=== PATIENT | male | born 1945 | race Caucasian/White ===

== ENCOUNTER 2019-02-18 21:47 | Observation (INO) ==
--- OUTSIDE RECORDS SUMMARY | 2019-02-18 21:50 | External Medical Summary | Continuity of Care Document ---
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 Refills: 0 Lisinopril 10 MG Oral Tablet; TAKE 1 TABLET DAILY. 15 Tablet Bottle Refills: 0 Atorvastatin Calcium 20 MG Oral Tablet; TAKE 1 TABLET DAILY. 90 Tablet Bottle Refills: 0 Meclizine HCl - 25 MG Oral Tablet; TAKE 1 TABLET 3 TIMES DAILY NEEDED FOR DIZZINESS. Refills: 0 Procedures Procedures not documented Immunizations Immunizations not documented Family History Father Family history of CABG (V17.49) (Z82.49) Status: Active Mother Family history of myocardial infarction (V17.3) (Z82.49) Sta tus: Active Grandfather Family history of myocardial infarction (V17.3) (Z82.49) Sta tus: Active Brother Family history of myocardial infarction (V17.3) (Z82.49) Sta tus: Active Social History - Smoking Status Never smoker Interventions InstructionsDo not use tobacco procducts and avoid secondhand smoke.; Done: 17 Jan 2018High-BMI is above normal parameters and patient education given regarding risks of abnormal BMI and associated educational information links. Patient offered dietitian referral.; Done: 17 Jan 2018Follow-ups/Referrals Follow-up visit in 6 weeks; Done: 17 Jan 2018Discussion/SummaryThis is a 72-year-old male with fairly persistent gait dysfunction for least the past 3 years. He does have fairly extensive chronic cerebral vascular disease on brain MRI including an area of chronic ischemic gliosis within the juju. He may have gait apraxia related to age advanced cerebral vascular disease. His imaging is not suggestive of normal pressure hydrocephalus. He does not have signs or sym ptoms suggestive of Parkinson's disease. Further, the patient also complains of shoulder girdle and hip girdle pain, although not clearly myalgia. Nonetheless, I wonder if he could have an acquired myositis. I would also consider the possibility of a neuromuscular junction transmission disorder such as myasthenia gravis given his vague visual complaints. I have recommended some additional testing including an EMG of the lower limbs with repetitive stimulation as well as some screening labs. I do notreally have a specific treatment to offer this patient. However, I will make further recommendationspending completion of the above testing.Thank you for the referral. Plan of Treatment Planned Observations Planned Goals not documented Results No Known Results Results not documented Encounters Appointment; Andres Van M.D. 17-Jan-2018 14:00 Encounter Diagnosis: Problem not documented
[2019-02-18] MEDS ORDERED: LORazepam 1 MG/2 ML VIAL IV STA (22:02)
[2019-02-18 22:12] LABS: Basophils # (auto) 0.04 K/uL (0-0.2); Basophils % (auto) 0.5 %; Eosinophils # (auto) 0.19 K/uL (0-0.5); Eosinophils % (auto) 2.2 %; Hematocrit (blood only) 41.1 % (42-52); Hemoglobin 14.2 g/dL (14.0-18.0); Lymphocytes # (auto) 2.73 K/uL (1.2-3.4); Lymphocytes % (auto) 31.8 %; Mean Corpuscular Hgb Conc 34.5 g/dL (32-36); Mean Corpuscular Volume 91.1 fL (80-100); Mean Platelet Volume 10.7 fL (7.4-10.4); Monocytes # (auto) 0.78 K/uL (0.11-0.59); Monocytes % (auto) 9.1 %; Neutrophils # (auto) 4.85 K/uL (1.4-6.5); Neutrophils % (auto) 56.4 %; Platelet Count 258 K/uL (130-400); RDW Coefficient of Variation 12.4 % (11.5-14.5); RDW Standard Deviation 41.5 fL (36.4-46.3); Red Blood Count 4.51 M/uL (4.7-6.1); White Blood Count 8.59 K/uL (4.8-10.8)
--- NOTE | 2019-02-18 22:14 | Emergency Department Note ---
History of Present Illness General Chief complaint: Dizziness History of Present Illness Maximum Pain Intensity: 0 This 73-year-old presents to the ER complaining of unsteady gait and feeling lightheaded Location: Generalized Quality: Unsteadiness Severity: Moderate Duration: Tonight Timing: Started when he tried to get up from the computer Context: Patient was unable to ambulate and summoned EMS Modifying factors: better with rest; worse with activity Patient states he has been suffering with dizziness for the past 6 years. He has had an extensive work-up and seen numerous neurologist with unclear etiology. Patient states tonight this feels different. Patient states he tried to walk and was unable to. He states he feels unsteady with his balance. Patient denies chest pain, dyspnea, localized weakness, dysarthria, vision problems, abdominal pain, flulike illness. Blood sugar was 139 when he checked it. He does not have diabetes but his does. He used her glucometer. Home Medications Home Medications Medication Instructions Recorded Confirmed Type aspirin 81 mg PO QAM 02/18/19 02/18/19 History losartan 50 mg PO QAM 02/18/19 02/18/19 History omeprazole 20 mg PO QAM 02/18/19 02/18/19 History pravastatin 20 mg PO QAM 02/18/19 02/18/19 History Allergies Allergy/AdvReac Type Severity Reaction Status Date / Time No Known Allergies Allergy Verified 02/18/19 22:38 Past Med/Surg History Medical History High blood pressure Surgical History History of back surgery Social History Preferred Language: Yakut Feels Safe at Home: Yes Smoking Status: Never smoker Review of Systems All systems reviewed & are unremarkable except as noted in HPI & below Physical Exam Vital Signs Vital Signs - 24 hr 02/18/19 21:49 02/18/19 22:16 02/18/19 22:17 Temperature 36.7 C Temperature Source Oral Sepsis Recent Fever Within 48 Hours No Sepsis Action Taken by Nursing No Action Required Pulse Rate - Lying 76 Pulse Rate - Sitting 84 Pulse Rate 77 Pulse Rate [Right Finger] 78 Pulse Rhythm Regular Pulse Rhythm [Right Finger] Regular Pulse Strength Normal Pulse Strength [Right Finger] Normal Respiratory Rate 20 20 Respiratory Effort / Characteristics Non-Labored Spontaneous Non-Labored Spontaneous Respiratory Depth Normal Normal Respiratory Pattern Regular Regular Blood Pressure - Lying 172/97 H Blood Pressure - Sitting 177/113 H Blood Pressure 212/107 H Blood Pressure [Right Arm] 177/113 H Blood Pressure Mean 142 Blood Pressure Mean [Right Arm] 134 Pulse Oximetry 99 97 Oxygen Delivery Method Room Air Room Air VITALS: Vitals are noted on the nurse's note and reviewed by myself. Vital signs hypertensive. GENERAL: Pleasant male anxious appearing, in no acute distress, nondiaphoretic, well-developed well-nourished. SKIN: The skin was without rashes, erythema, edema, or bruising. There is no tenting of the skin. Capillary reflex less than 2 seconds. HEAD: Normocephalic atraumatic. EARS: External auditory canals clear, tympanic membranes pearly gonzalez without erythema or effusion bilaterally. EYES: Pupils equal round and reactive to light and accommodation. Conjunctivae without injection, sclerae without icterus. Extraocular movements intact. No nystagmus NOSE: Patent, turbinates without inflammation or discharge. No sinus tenderness. MOUTH: Mucous membranes moist. Pharynx without erythema or exudate. Uvula midline. Airway patent. Tongue does not deviate. NECK: Supple without nuchal rigidity. No lymphadenopathy. No thyromegaly. Cervical spine is nontender. No JVD. HEART: Regular rate and rhythm LUNGS: Clear to auscultation bilaterally without wheezes, rales or rhonchi. No retractions or accessory muscle use. ABDOMEN: Positive bowel sounds x 4. Normal tympanic percussion. Soft, nontender, without masses or organomegaly. Lee sign negative. No guarding or rebound tenderness. No CVA tenderness MUSCULOSKELETAL: No muscle atrophy, erythema, or edema noted. 5 out of 5 strength throughout NEURO: Patient was alert and oriented to person place and time. Normal sensation to light and sharp touch. No focal neurological deficits. Cranial nerves II through XII grossly intact. No pronator drift. Cerebellar exam intact. Course Administered Medications Discontinued Medications Lorazepam (Ativan) 1 mg in 2 mls @ 2 mls/min IV NOW STA Stop: 02/18/19 22:03 Last Admin: 02/18/19 22:43 Dose: 2 mls/min Documented by: [id number] Medical Decision Making Medical Records Attestation: I reviewed the patient's medical records. Home Medications Current Medication List: was personally reviewed by me Laboratory Data Attestation: I reviewed the patient's lab results. Result diagrams: 02/18/19 21:59 02/18/19 21:59 Lab Results 02/18/19 02/18/19 02/18/19 Range/Units 21:59 21:59 23:07 WBC 8.59 (4.8-10.8) K/uL RBC 4.51 L (4.7-6.1) M/uL Hgb 14.2 (14.0-18.0) g/dL Hct 41.1 L (42-52) % MCV 91.1 (80-100) fL MCH 31.5 (25-34) pg MCHC 34.5 (32-36) g/dL RDW Std Deviation 41.5 (36.4-46.3) fL RDW Coeff of [place] 12.4 (11.5-14.5) % Plt Count 258 (130-400) K/uL MPV 10.7 H (7.4-10.4) fL Immature Gran % (Auto) 0.0 % Neut % (Auto) 56.4 % Lymph % (Auto) 31.8 % [place] % (Auto) 9.1 % Eos % (Auto) 2.2 % Baso % (Auto) 0.5 % Immature Gran # (Auto) 0.00 (0.00-0.02) K/uL Neut # (Auto) 4.85 (1.4-6.5) K/uL Lymph # (Auto) 2.73 (1.2-3.4) K/uL [place] # (Auto) 0.78 H (0.11-0.59) K/uL Eos # (Auto) 0.19 (0-0.5) K/uL Baso # (Auto) 0.04 (0-0.2) K/uL Sodium 140 (136-145) mmol/L Potassium 3.9 (3.5-5.1) mmol/L Chloride 108 H (98-107) mmol/L Carbon Dioxide 24 (21-32) mmol/L Anion Gap 8.0 (3-11) BUN 22 H (7-18) mg/dl Creatinine 1.25 (0.6-1.4) mg/dl Est Cr Clr Drug Dosing 48.5 ml/min Est GFR ( Amer) 65.3 Est GFR (Non-Af Amer) 56.4 BUN/Creatinine Ratio 17.4 (10-20) Glucose 130 H (70-99) mg/dl Calcium 9.5 (8.5-10.1) mg/dl Magnesium 2.1 (1.8-2.4) mg/dl Total Bilirubin 0.4 (0.2-1) mg/dl AST 16 (15-37) U/L ALT 23 (12-78) U/L Alkaline Phosphatase 75 (45-117) U/L Troponin I < 0.015 (0-0.045) ng/ml Total Protein 7.6 (6.4-8.2) gm/dl Albumin 3.7 (3.4-5.0) gm/dl Globulin 3.9 (2.5-4.0) gm/dl Albumin/Globulin Ratio 0.9 (0.9-2) TSH 1.670 (0.300-4.500) uIu/ml Urine Color Yellow Urine Appearance Clear (Clear) Urine pH 8.0 H (4.5-7.5) Ur Specific [place] 1.011 (1.000-1.030) Urine Protein Negative (Negative) Urine Glucose (UA) Negative (Negative) Urine Ketones Negative (Negative) Urine Blood Negative (Negative) Urine Nitrite Negative (Negative) Urine Bilirubin Negative (Negative) Urine Urobilinogen Negative (Negative) Ur Leukocyte Esterase Negative (Negative) Imaging Data Attestation: I personally reviewed and interpreted this imaging study as follows: Blood Pressure Blood Pressure Findings: Elevated blood pressure Blood Pressure Disposition: Referred to patients primary care provider MDM Narrative Prior records/ancillary studies reviewed and summarized above. Nursing notes reviewed. Additional history obtained from family. The patient's history was concerning for unsteady gait. Differential diagnosis: Etiologies such as metabolic, infection, hypo/hyperglycemia, electrolyte abnormalities, cardiac sources, intracerebral event, toxicologic, neurologic, as well as others were entertained. Physical examination: As above. ER treatment provided: IV Lock Ativan On reassessment the patient felt better. Diagnostics interpretation by me: ECG: Normal sinus, no acute ST-T wave changes, first-degree AV block, rate of 77. Impression first-degree AV block interpreted by myself I think arrhythmia is unlikely. EKG shows normal sinus rhythm with no interval abnormalities such as QT prolongation or WPW. There are no findings to suggest Brugada syndrome. Cardiac monitoring in the emergency department reveals no tachycardic or bradycardic dysrhythmia. Hypertrophic cardiomyopathy was considered but there are no clear historical elements pointing toward this. EKG is not suggestive. The QRS voltage is not extremely large and there are no suggestive Q waves. The labs revealed negative troponin. Euthyroid Imaging studies: Patient: RED HAMEED Admit Date: 02/18/19 MR#: [id number] Address1: [address] Acct ID:[id number] Address2: Date: 1945 [facility] Zip: [place] [id number] Age: 73 Location: ED Sex: M Room/Bed: Att Phy: Diagnosis: dizziness Tasha Phy: Olga Nash DO Service Date: 02/18/19 Fam Phy: Interpreting Phy: Kahlil Valencia MD Admit Phy: Ordering Phy: Kinsey Mendes .JONATHON cc: ~ CT OF THE HEAD WITHOUT CONTRAST CLINICAL HISTORY: unsteady gate, HTN COMPARISON STUDY: No previous studies for comparison. CT DOSE: 537.48 mGy.cm TECHNIQUE: Helical axial images of the head were obtained without IV contrast. Automated exposure control was utilized for the study. A dose lowering technique was utilized adhering to the principles of ALARA. FINDINGS: No acute intracranial hemorrhage, midline shift or mass effect is present. The ventricular system is unremarkable. The basilar cisterns are patent. No extra-axial collections are present. There are no findings to suggest acute dural sinus thrombosis or acute territorial infarct. No significant calvarial abnormalities are present. Visualized portions of the sinuses and mastoid air cells are clear. White matter hypodensity suggests small vessel disease. IMPRESSION: No acute intracranial findings. Consultation: A consultation was placed with the hospitalist. The case was discussed and diagnostics were reviewed. The patient was evaluated in the ER for further treatment. Exam and history seem consistent with unsteady gait. Patient was unable to ambulate. Medicine was consulted for possible CVA rule out. Patient is agreeable treatment plan of being evaluated by medicine. No acute findings in the above work-up. Negative PET scan. Negative troponin. Euthyroid. Patient states he has a history of dizziness spells but tonight felt much different tonight. By the evaluation outlined above emergent etiologies such as infection, electrolyte abnormalities, cardiac sources, toxologic, abnormalities blood glucose, metabolic, as well as others were deemed relatively unlikely. The pt informed about the findings as listed above. All questions were answered and pleased with the treatment. Case reviewed with my attending The chart was completed utilizing [employer] voice recognition software. Grammatical errors, random word insertions, pronoun errors, and incomplete sentences are an occassional consequence of this system due to software limitations, ambient noise, and hardware issues. Any formal questions or concerns about the content, text, or information contained within the body of this dictation should be directly addressed to the physician bricklayer's assistant for clarification. Impression & Plan Unsteady gait, Hypertensive urgency Discharge Plan Visit Data Chief Complaint: Dizziness ED Provider: Gorge Mahan ED Midlevel Provider: Kinsey Mendes Discharge Problem: Unsteady gait, Hypertensive urgency Patient Disposition: Being Evaluated by Hospitalist Condition: Good Forms Stand Alone Forms: My [facility] Prescriptions Prescriptions: No Action losartan 50 mg tablet 50 mg PO QAM RF: 0 aspirin 81 mg Tablet,Delayed Release (Dr/Ec) 81 mg PO QAM RF: 0 omeprazole 20 mg capsule,delayed release(DR/EC) 20 mg PO QAM RF: 0 pravastatin 20 mg tablet 20 mg PO QAM RF: 0 Referrals Referrals: Olga Nash DO [Primary Care Provider] -
--- NOTE | 2019-02-18 22:20 | CT Scan Report ---
CT OF THE HEAD WITHOUT CONTRAST CLINICAL HISTORY: unsteady gate, HTN COMPARISON STUDY: No previous studies for comparison. CT DOSE: 537.48 mGy.cm TECHNIQUE: Helical axial images of the head were obtained without IV contrast. Automated exposure con trol was utilized for the study. A dose lowering technique was utilized adhering to the principles o f ALARA. FINDINGS: No acute intracranial hemorrhage, midline shift or mass effect is present. The ventricular system is unremarkable. The basilar cisterns are patent. No extra-axial collections are present. Ther e are no findings to suggest acute dural sinus thrombosis or acute territorial infarct. No significan t calvarial abnormalities are present. Visualized portions of the sinuses and mastoid air cells are c lear. White matter hypodensity suggests small vessel disease. IMPRESSION: No acute intracranial findings. Electronically signed by: Kahlil Valencia M.D. 02/18/2019 10:18 PM
[2019-02-18 22:23] LABS: Alanine Aminotransferase 23 U/L (12-78); Albumin Level 3.7 gm/dl (3.4-5.0); Aspartate Aminotransferase 16 U/L (15-37); BUN Creatinine Ratio 17.4 (10-20); Blood Urea Nitrogen 22 mg/dl (7-18); Calcium 9.5 mg/dl (8.5-10.1); Carbon Dioxide 24 mmol/L (21-32); Chloride 108 mmol/L (98-107); Creatinine Clr Calc Pharmacy 48.5 ml/min; Est GFR (African American) 65.3; Est GFR (Non-African American) 56.4; Glucose 130 mg/dl (70-99); Magnesium 2.1 mg/dl (1.8-2.4); Potassium 3.9 mmol/L (3.5-5.1); Sodium 140 mmol/L (136-145)
[2019-02-18 22:34] LABS: Albumin Globulin Ratio 0.9 (0.9-2); Alkaline Phosphatase 75 U/L (45-117); Bilirubin,Total 0.4 mg/dl (0.2-1); Globulin 3.9 gm/dl (2.5-4.0); Total Protein 7.6 gm/dl (6.4-8.2); Troponin I < 0.015 ng/ml (0-0.045)
--- NOTE | 2019-02-18 22:37 | Emergency Department Note ---
ED Visit Note I did evaluate and examine this patient myself. I did guide management for the patient. I agree with the PA's assessment as discussed. Please see the PAs dictation for further details. I did independently review the twelve-lead EKG, CT of the head and blood work. Patient has had a 5-year history of dizziness which she describes as disequilibrium. He has seen to neurologist and had an MRI of his brain which were unremarkable. He states that today he was sitting at the computer and developed significant dizziness and disequilibrium. He was at the point where he could not walk. He still states that he feels like he cannot walk. He has no cerebellar signs including limb ataxia or dysdiadochokinesis. He will be hospitalized for further evaluation and care. .
[2019-02-18 23:14] LABS: Appearance Urine Clear (Clear); Bilirubin Urine Negative (Negative); Blood Urine Negative (Negative); Color Urine Yellow; Glucose Urine UA Negative (Negative); Ketones Urine Negative (Negative); Leukocyte Esterase Urine Negative (Negative); Nitrite Urine Negative (Negative); Protein Urine Negative (Negative); Specific Gravity Urine 1.011 (1.000-1.030); Urobilinogen Urine Negative (Negative)
[2019-02-19] MEDS ORDERED: GADOBUTROL 7.5ML VIAL IV PRN (00:03)
[2019-02-19] MEDS ORDERED: LOSARTAN POTASSIUM 50 MG TAB PO STA (01:16)
--- NOTE | 2019-02-19 01:17 | History & Physical Report ---
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 Mccarthy.) Check hemoglobin A1c DVT prophylaxis with Lovenox SQ Full code History of Present Illness Chief Complaint: Dizziness Primary Care Provider: Olga Nash DO History obtained from patient and records. Medical history significant for hypertension, hyperlipidemia, chronic d isequilibrium/balance impairment as per records. Recent confinement 2013 under Orthopedics service for back surgery. Patient has had gait/balance problem for a few years now where he feels unsteady while walking, dizziness described as lightheadedness, daily symptoms, occasional headache symptoms. Patient has been seen by local neurologists ([facility], [facility], [facility]). Neuropathy, ataxia, mood disturbance contributory to balance issues as per outpatient notes. Patient unconvinced by explanations to his problem. Patient not interested in undergoing EMG study recommended by one specialist. Last night, patient noted dizziness described as lightheadedness, nausea, emesis, achy headache symptoms, followed by increased gait instability. Denies chest pain, S OB. Admits to more stress than usual at home given 's recent stroke and care of grandchildren. Thinks he might be depressed and anxious. Denies suicidality. Patient does not take his blood pressure at home due to unreliable readings from home BP machine. Admits to salty food intake. 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 Allergies Allergy/AdvReac Type Severity Reaction Status Date / Time No Known Allergies Allergy Verified 02/18/19 22:38 Home Medications Home Medications Medication Instructions Recorded Confirmed Type aspirin 81 mg PO QAM 02/18/19 02/18/19 History omeprazole 20 mg PO QAM 02/18/19 02/18/19 History pravastatin 20 mg PO QAM 02/18/19 02/18/19 History losartan 50 mg PO BID 30 Days #60 tab 06/23/19 Rx meclizine 25 mg PO TID PRN #20 tab 02/19/19 Rx sertraline 25 mg PO DAILY 30 Days #30 tab 02/19/19 Rx Past Med/Surg History Medical History High blood pressure Surgical History History of back surgery Social History Preferred Language: Yakut Communication Ability: Effective Periodicals Library Assistant Required: No Beliefs That Will Affect Care: None and Hindu (Believes in God but not druze) Current Living Situation: Spouse Feels Safe at Home: Yes Safety Concerns: Feels Safe At This Time Smoking Status: Never smoker Hx Alcohol Use: No Hx Substance Use: No Review of Systems Review of Systems: As per HPI, all 10 systems reviewed, all other ROS negative Physical Exam Physical Exam: GENERAL: Comfortable, anxious, no respiratory distress SKIN: Normal color, warm HEENT: [place] palpebral conjunctivae, no ptosis, dry buccal mucosa NECK : Supple, no tenderness CHEST : CTA, no tenderness HEART : RRR, no obvious murmurs ABDOMEN: Some distention, nontender EXTREMITIES : No LE swelling/tenderness, no other conspicuous deformities noted NEUROLOGIC : Coherent, no facial asymmetry, gait and stance not assessed Results & Data Vital Signs (Past 12 Hours) Vital Signs Temp Pulse Pulse Resp BP BP Pulse Ox 02/19/19 00:11 83 20 171/91 H 98 02/18/19 22:17 78 20 177/113 H 97 02/18/19 21:49 36.7 C 77 20 212/107 H 99 Laboratory Results Laboratory Results WBC 8.59 K/uL (4.8-10.8) 02/18/19 21:59 RBC 4.51 M/uL (4.7-6.1) L 02/18/19 21:59 Hgb 14.2 g/dL (14.0-18.0) 02/18/19 21:59 Hct 41.1 % (42-52) L 02/18/19 21:59 MCV 91.1 fL (80-100) 02/18/19 21:59 MCH 31.5 pg (25-34) 02/18/19 21:59 MCHC 34.5 g/dL (32-36) 02/18/19 21:59 RDW Std Deviation 41.5 fL (36.4-46.3) 02/18/19 21:59 RDW Coeff of [place] 12.4 % (11.5-14.5) 02/18/19 21:59 Plt Count 258 K/uL (130-400) 02/18/19 21:59 MPV 10.7 fL (7.4-10.4) H 02/18/19 21:59 Immature Gran % (Auto) 0.0 % 02/18/19 21:59 Neut % (Auto) 56.4 % 02/18/19 21:59 Lymph % (Auto) 31.8 % 02/18/19 21:59 [place] % (Auto) 9.1 % 02/18/19 21:59 Eos % (Auto) 2.2 % 02/18/19 21:59 Baso % (Auto) 0.5 % 02/18/19 21:59 Immature Gran # (Auto) 0.00 K/uL (0.00-0.02) 02/18/19 21:59 Neut # (Auto) 4.85 K/uL (1.4-6.5) 02/18/19 21:59 Lymph # (Auto) 2.73 K/uL (1.2-3.4) 02/18/19 21:59 [place] # (Auto) 0.78 K/uL (0.11-0.59) H 02/18/19 21:59 Eos # (Auto) 0.19 K/uL (0-0.5) 02/18/19 21:59 Baso # (Auto) 0.04 K/uL (0-0.2) 02/18/19 21:59 Sodium 140 mmol/L (136-145) 02/18/19 21:59 Potassium 3.9 mmol/L (3.5-5.1) 02/18/19 21:59 Chloride 108 mmol/L (98-107) H 02/18/19 21:59 Carbon Dioxide 24 mmol/L (21-32) 02/18/19 21:59 Anion Gap 8.0 (3-11) 02/18/19 21:59 BUN 22 mg/dl (7-18) H 02/18/19 21:59 Creatinine 1.25 mg/dl (0.6-1.4) 02/18/19 21:59 Est Cr Clr Drug Dosing 48.5 ml/min 02/18/19 21:59 Est GFR ( Amer) 65.3 02/18/19 21:59 Est GFR (Non-Af Amer) 56.4 02/18/19 21:59 BUN/Creatinine Ratio 17.4 (10-20) 02/18/19 21:59 Glucose 130 mg/dl (70-99) H 02/18/19 21:59 Calcium 9.5 mg/dl (8.5-10.1) 02/18/19 21:59 Magnesium 2.1 mg/dl (1.8-2.4) 02/18/19 21:59 Total Bilirubin 0.4 mg/dl (0.2-1) 02/18/19 21:59 AST 16 U/L (15-37) 02/18/19 21:59 ALT 23 U/L (12-78) 02/18/19 21:59 Alkaline Phosphatase 75 U/L (45-117) 02/18/19 21:59 Troponin I < 0.015 ng/ml (0-0.045) 02/18/19 21:59 Total Protein 7.6 gm/dl (6.4-8.2) 02/18/19 21:59 Albumin 3.7 gm/dl (3.4-5.0) 02/18/19 21:59 Globulin 3.9 gm/dl (2.5-4.0) 02/18/19 21:59 Albumin/Globulin Ratio 0.9 (0.9-2) 02/18/19 21:59 TSH 1.670 uIu/ml (0.300-4.500) 02/18/19 21:59 Urine Color Yellow 02/18/19 23:07 Urine Appearance Clear (Clear) 02/18/19 23:07 Urine pH 8.0 (4.5-7.5) H 02/18/19 23:07 Ur Specific [place] 1.011 (1.000-1.030) 02/18/19 23:07 Urine Protein Negative (Negative) 02/18/19 23:07 Urine Glucose (UA) Negative (Negative) 02/18/19 23:07 Urine Ketones Negative (Negative) 02/18/19 23:07 Urine Blood Negative (Negative) 02/18/19 23:07 Urine Nitrite Negative (Negative) 02/18/19 23:07 Urine Bilirubin Negative (Negative) 02/18/19 23:07 Urine Urobilinogen Negative (Negative) 02/18/19 23:07 Ur Leukocyte Esterase Negative (Negative) 02/18/19 23:07 Diagnostic Findings Brain MRI initial read : No acute infarct moderate. Chronic small vessel ischemic changes. No abnormal enhancement. EEG as per my interpretation : rate 80, NSR, 1 AVB, incomplete RBBB, T wave inversion inferior leads
[2019-02-19] MEDS ORDERED: ACETAMINOPHEN 325 MG TAB PO PRN (02:08)
[2019-02-19] MEDS ORDERED: TRAMADOL HCL 50 MG TABLET PO PRN (02:08)
[2019-02-19] MEDS ORDERED: LACTATED RINGER'S 1,000 ML IV ONE (02:08)
[2019-02-19] MEDS ORDERED: NITROGLYCERIN SL 0.4 MG/TAB TAB SL PRN (02:08)
[2019-02-19] MEDS ORDERED: PROMETHAZINE HCL 12.5 MG in SODIUM CHLORIDE 0.9% 50 ML IV PRN (02:08)
--- NOTE | 2019-02-19 06:38 | Magnetic Resonance Report ---
MRI OF THE BRAIN WITHOUT AND WITH IV CONTRAST CLINICAL HISTORY: Unsteady gait. PAIN. COMPARISON STUDY: CT scan dated 02/18/2019 TECHNIQUE: MRI of the brain was performed from the vertex to the skull base utilizing various T1 and T2 weighted sequences. Following the IV administration of 7 mL of Gadavist contrast, additional enhan debra images were obtained. FINDINGS: Sagittal T1, axial diffusion, proton density and T2 weighted axial, coronal FLAIR, and pre and post a xial T1-weighted images were acquired. These were supplemented with post gadolinium coronal T1 weight ed images. No intra or extra-axial mass lesions are visualized. Axial diffusion-weighted images reveal no evidence of acute or subacute infarction. There is no evidence of ventricular dilatation. Proton density T2-weighted and FLAIR images reveal moderate foci of increased T2 signal within the wh ite matter, likely on a small vessel basis. There are no abnormal flow voids. There is no evidence of pathologic enhancement. IMPRESSION: 1. No acute intracranial findings 2. No evidence of acute or subacute infarction 3. No evidence of intracranial mass 4. Moderate foci of increased T2 and FLAIR signal within the white matter. While nonspecific these ar e likely on a small vessel ischemic basis. Electronically signed by: Valentin Flores M.D. 02/19/2019 6:36 AM
[2019-02-19 06:55] LABS: Basophils # (auto) 0.03 K/uL (0-0.2); Basophils % (auto) 0.4 %; Eosinophils # (auto) 0.22 K/uL (0-0.5); Hematocrit (blood only) 40.5 % (42-52); Immature Granulocytes # (auto) 0.01 K/uL (0.00-0.02); Immature Granulocytes % (auto) 0.1 %; Lymphocytes # (auto) 2.18 K/uL (1.2-3.4); Lymphocytes % (auto) 29.9 %; Mean Corpuscular Hgb Conc 34.6 g/dL (32-36); Mean Platelet Volume 10.4 fL (7.4-10.4); Monocytes # (auto) 0.92 K/uL (0.11-0.59); Monocytes % (auto) 12.6 %; Neutrophils # (auto) 3.93 K/uL (1.4-6.5); Platelet Count 240 K/uL (130-400); RDW Coefficient of Variation 12.4 % (11.5-14.5); RDW Standard Deviation 41.3 fL (36.4-46.3); Red Blood Count 4.45 M/uL (4.7-6.1); White Blood Count 7.29 K/uL (4.8-10.8)
[2019-02-19 07:04] LABS: Prothrombin Time 10.7 Seconds (9.0-12.0)
[2019-02-19] MEDS ORDERED: PRAVASTATIN SOD 20 MG TAB PO SCH (09:00)
[2019-02-19] MEDS ORDERED: ASPIRIN 81 MG ECTAB PO SCH (09:00)
[2019-02-19] MEDS ORDERED: PANTOprazole 40 MG TAB PO SCH (09:00)
[2019-02-19] MEDS ORDERED: ENOXAPARIN INJ 40 MG/0.4 ML SYR SQ SCH (09:00)
[2019-02-19] MEDS ORDERED: SERTRALINE HCL 50 MG TABLET PO ONE (11:05)
--- NOTE | 2019-02-19 11:28 | Psychiatric Consultation ---
Date of Consultation February 19, 2019 Impression / Recommendations Impression Ed is a 73-year-old gentleman without any prior psychiatric history apart from brief anxiolytic treatment by PCP several years ago. He describes long-standing tendency to worry that has never really risen to the level of requiring intervention but suspicious for underlying mild generalized anxiety disorder. He also describes likely long-standing mild obsessive-compulsive personality traits which may negatively impact his ability to accept recent nonpreferred circumstances and increase his emotional discomfort during times of transition. He is experiencing increased frustration associated with his imbalance, particularly as there is not yet a known medical etiology however it does not appear obviously psychogenic in nature. He does not describe a significant history of somatic preoccupation otherwise. He does appear depressed and may benefit from a gentle antidepressant trial which we will initiate as below. He is also willing to trial outpatient therapy to help with adjustment issues and improve coping in setting of recent correction and family stressors. Concerningly he reports passive suicidal fantasy of shooting himself and does have access to guns at home. Protectively he does not have any history of self- harm; he does not endorse intent for self-harm; he is not abusing substances; he does not have a history of prior mental illness; and he is able to identify protective factors including his family and hope that he can feel better. He does fall in an elevated risk category though for potential lethality of suicide attempts as he is an elderly male with health problems. At time of evaluation he was able to convincingly contract for safety and I do not perceive a need for acute mental health hospitalization. He is certainly not committable at this time. He was advised to reduce access to firearms within the home and I would like him to relinquish the brown for the gun cabinet to a family member to keep for him for the time being and will have nursing revisit him to try to have a release of information signed for his to facilitate that effort. (1) Major depressive disorder, single episode, moderate: -Start Zoloft 25 mg daily. Common risks and benefits as well as alternative agents reviewed with patient and he accepted the recommendation for antidepressant trial. As he is SSRI nima, we will start low but can titrate to 50 mg within a few days if well tolerated. This can be further titrated as an outpatient pending need and tolerability. -Nursing will help facilitate outpatient psychotherapy referral. Patient willing -discussed access to emergency care if feeling unsafe Present on Admission?: Yes (2) Anxiety disorder, unspecified: -Patient describes long-standing mild anxiety. Rule out underlying mild generalized anxiety disorder but will defer making this diagnosis in the setting of mood decompensation presently -Anxiety should also benefit from SSRI initiation as above Present on Admission?: Yes Risk Factors Assessment Male: Yes : Yes Do You Have Access To A Gun?: Yes Health Problems: Yes Mental Health Diagnoses: Yes (Depression) Substance Use Disorders: No Previous Attempt: No Family History of Suicide: No Previous Psychiatric Hospitalization: No Hopelessness: No Smoker: No Protective Factors Assessment Mormonism Beliefs: Yes (Believes in God) : Yes Responsible for Young Children: Yes Employed: No (Recently retired) Stable Relationships: Yes Supportive Family: Yes CPT Code 20068 Psych History Chief Complaint "I get so disgusted". History of Present Illness Per admission HPI: History obtained from patient and records. Medical history significant for hypertension, hyperlipidemia, chronic disequilibrium/balance impairment as per records. Recent confinement 2013 under Orthopedics service for back surgery. Patient has had gait/balance problem for a few years now where he feels unsteady while walking, dizziness described as lightheadedness, daily symptoms, occasional headache symptoms. Patient has been seen by local neurologists ([facility], [facility], [facility]). Neuropathy, ataxia, mood disturbance contributory to balance issues as per outpatient notes. Patient unconvinced by explanations to his problem. Patient not interested in undergoing EMG study recommended by one specialist. Last night, patient noted dizziness described as lightheadedness, nausea, emesis, achy headache symptoms, followed by increased gait instability. Denies chest pain, S OB. Admits to more stress than usual at home given 's recent stroke and care of grandchildren. Thinks he might be depressed and anxious. Denies suicidality. Patient does not take his blood pressure at home due to unreliable readings from home BP machine. Admits to salty food intake. On psychiatric assessment this morning patient reports 4-5 years of gait disturbance. Describes feeling imbalanced but not dizzy. Reports multiple neurological consultations at [facility], Evon Rubio, without clear etiology identified. Neuro re-consultation with Dr. Mccarthy pending for today. Mod white matter disease evident on brain MRI. Patient describes significant frustration associated with his imbalance as it limits his activity and makes him feel "sick." He describes himself historically as always a very active person. Notably he just recently retired this past August after failing to adjust to correction with a previous attempt and ended up returning to work. He complains of loss of interest, at times feeling anhedonic, energy declined, + crying spells, reports diminished appetite without weight loss, notable increase in irritability which makes him feel guilty (but denies becoming destructive or aggressive) and more frequent thoughts of hopelessness and feeling that life may not be worth living. He admits to some suicidal fantasy (to shoot himself) but denies that he has ever acted on this thought. He denies any parasuicidal behaviors. He denies intent to shoot himself identifying his and grandchildren as protective. He does have access to guns however he keeps his guns locked and ammunition separate in his home. He is an avid vilma. He describes a tendency to worry long-standing. He believes his PCP prescribed him "nerve pills" of an recalled name several years ago but he took them for only a month as he did not want to take extra medication. He cannot recall if they were helpful. Regarding his tendency to worry he describes the anxiety as contributing to restlessness, on edge feeling, difficulty concentrating, increased irritability, muscle tension, and occasional mild sleep disturbance. He denies history of panic attacks. He denies history of obvious psychogenic symptomatology such as pseudoseizures or psychogenic paralysis. He does self identify as being something of a perfectionist and prefers things to be tidy and believes his would describe him as being rigid at times however he denies symptoms that would clearly support an obsessive-compulsive disorder diagnosis. He denies a history of hypomania, fannie, PTSD, psychosis, confusion, or substance abuse. He expresses willingness to see an outpatient counselor and is also amenable to a trial of an antidepressant. Apart from his imbalance and recent correction he identifies several additional stressors including worry about his daughter chronically as he perceives her to be irresponsible, caring for his who has recently suffered medical illness of her own, and caring for his grandsons who spend the majority of their time at his home as he suspects they do not like their stepfather. Past Psychiatric History Previous Psych History: Denies any prior psychiatric contact Current Psychiatric Diagnosis: None Outpatient Services: None Previous Psych Admissions: None Do You Have Access To A Gun?: Yes History of Previous Suicide Attempt: No Past Medication Trials: Unrecalled "nerve pill" 1 month trial by PCP Allergies Allergy/AdvReac Type Severity Reaction Status Date / Time No Known Allergies Allergy Verified 02/18/19 22:38 Home Medications Home Medications Medication Instructions Recorded Confirmed Type aspirin 81 mg PO QAM 02/18/19 02/18/19 History omeprazole 20 mg PO QAM 02/18/19 02/18/19 History pravastatin 20 mg PO QAM 02/18/19 02/18/19 History losartan 50 mg PO BID 30 Days #60 tab 02/19/19 Rx meclizine 25 mg PO TID PRN #20 tab 02/19/19 Rx sertraline 25 mg PO DAILY 30 Days #30 tab 02/19/19 Rx Family History Denies psychiatric family history Substance Abuse History Denies any alcohol use in over 35 years. Denies tobacco use history. Denies recreational drug use history. Personal History Living Arrangements: Home (Lives in [place] in a private home with his ) Childhood: Reports a good childhood. Good relationships with parents and siblings. He was the eldest of 6 Highest Grade Completed: High School Graduate Employment Status: Retired (Retired in August 2018 from [employer]. 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 Reports good relationship with .) Beliefs That Will Affect Care: None and Mormonism (Believes in God but not baptism) Psychological Trauma History Comment: Denies Patient History Medical History High blood pressure Surgical History History of back surgery Social History Preferred Language: Faroese Communication Ability: Effective Forger Helper Required: No Beliefs That Will Affect Care: None and Mormonism (Believes in God but not baptism) Current Living Situation: Spouse Feels Safe at Home: Yes Safety Concerns: Feels Safe At This Time Smoking Status: Never smoker Hx Alcohol Use: No Hx Substance Use: No Physical Exam Psychiatric: Orientation: alert, oriented x 3 and cooperative Apperance: appropriately groomed Eye Contact: good eye contact Appears mildly restless. Frequently shifts legs under bed sheet while speaking Speech: normal rate/rhythm/volume of speech (Speech is over productive at times but not pressured. Articulation clear) Affect: + depressed affect and mood congruent with affect Mood: + depressed mood Thought Process: clear/coherent thought process and + circumstantial thought process Thought Content: + preoccupation (Somatic complaint of imbalance), reality based without delusions and + guilt Suicidal Thoughts: denies suicidal intent; + reports suicidal thoughts (Patient denies any active suicidal intent. He does endorse passive episodic suicidal fantasy as per HPI reportedly chronic for the past 4-5 years) Homicidal Thoughts: denies homicidal thoughts, denies homicidal plan and denies homicidal intent Hallucinations: no auditory hallucinations, no visual hallucinations and no tactile hallucinations Cognition: recent memory grossly intact Estimated Intelligence: average estimated intelligence Insight: + fair insight Judgement: + fair judgement Vital Signs (Past 24 Hours): Last Vital Signs Temp 36.4 C L 02/19/19 07:30 Pulse 66 02/19/19 07:39 Resp 18 02/19/19 07:30 BP 154/77 H 02/19/19 07:30 Pulse Ox 99 02/19/19 07:30 Review of Systems Neurologic: + gait abnormality, + unsteadiness and + falls; no dizziness and no memory loss Psychiatric: as per Subjective / HPI Results & Data Medications Administered Aspirin (Ecotrin Ectab) 81 mg PO [facility] Stop: 03/21/19 08:59 Last Admin: 02/19/19 08:27 Dose: 81 mg Documented by: [id number] Enoxaparin Sodium (Lovenox) 40 mg SQ [facility] Stop: 03/21/19 08:59 Last Admin: 02/19/19 08:28 Dose: Not Given Documented by: [id number] Lactated Ringer's (Lr) 1,000 mls @ 40 mls/hr IV .Q24H ONE Stop: 02/20/19 02:07 Last Admin: 02/19/19 03:09 Dose: 40 mls/hr Documented by: [id number] Pantoprazole Sodium (Protonix) 40 mg PO [facility] Stop: 03/21/19 08:59 Last Admin: 02/19/19 08:27 Dose: 40 mg Documented by: [id number] Pravastatin Sodium (Pravachol) 20 mg PO [facility] Stop: 03/21/19 08:59 Last Admin: 02/19/19 08:27 Dose: 20 mg Documented by: [id number]
--- NOTE | 2019-02-19 11:40 | Communication Note ---
Date of Service: February 19, 2019 I seen Mr. 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 He was admitted for a more acute episode of dystaxia and vertigo in association with hypertension but this seems to have resolved although the blood pressure still remains moderately elevated but the exam shows no evidence for a signifi cant neurologic deficit, a primary movement disorder, a cerebellar degeneration, myelopathy, significant polyneuropathy, and imaging studies show only if the encephalopathy which may or may not be an explanation for his chronic issues At this point I do not think neurology is a lot more to offer although I did offer to see him in an outpatient basis in about 4 to 6 weeks review things at that point and consider a trial of low-dose daily Antivert which is something he is now interested in I would not recommend any further neurodiagnostic testing I will check back with him tomorrow if he still in the hospital but suspect frankly that he will get back to his old baseline very quickly within the next day and may actually be discharged tomorrow morning If he is discharged I would suggest we offer him an appointment to see me in neurology in 6 weeks time Full consult has been dictated but will not be typed until later in this note hopefully will serve as a summary of my impressions and plan Luke Mccarthy MD
--- NOTE | 2019-02-19 12:58 | Consultation Report ---
DATE OF CONSULTATION: 02/19/2019 HISTORY OF PRESENT ILLNESS: Ed is 73 years old, is a patient of Dr. Olga Nash and has had for the last 5 years a chronic sense of disequilibrium and perhaps 2 brief episodes of vertigo associated with head movement, although the latter is very vaguely defined. Ed's issues have always been somewhat odd in that he has absolutely no symptoms if he is engaged in activities such as driving a car, at which point he can move his head from side to side and have no problems, but he often gets his symptoms as soon as he wakes up in the morning and sits up at which point he feels that his eyes are not tracking correctly and his gait is off and this persists throughout most of the day up until the evening hours when he goes to bed and then is fine during the night only to awaken with a similar chronic dysequilibrium syndrome punctuated on occasion like yesterday when he was admitted to the hospital for an acute episode of dystaxia and vertigo associated with some fairly impressive blood pressure numbers that have now calmed down and he is somewhat better as well. I have seen him in the remote past and he has been seen by the [facility], physicians at [place], physicians at [facility] in [place], Dr. Van of [facility] and a host of others apparently including I believe some ear, nose and throat specialists and no real definitive abnormalities have been found other than some low-grade leukoencephalopathy and some question of a neuropathy, but according to what I can glean from the chart, he has never really had any EMG studies done. He has had multiple imaging studies of the brain and internal acoustic meati showing no acoustic tumors, no cerebellar atrophy, and only the low-grade white matter disease. He has had imaging studies of the cervical spine showing multilevel degenerative disc disease, but no cord compromise and he has never been felt to have a myelopathy or a basal ganglia disorder by any other providers who have seen him. He has a number of medical issues including vertigo, disequilibrium, some low-grade hypertension, dyslipidemia, but has really had no significant surgery other than in 2013 when he had a procedure on his lower back but this occurred prior to the onset of his disequilibrium to some degree. ALLERGIES: He has no allergies to medications. MEDICATIONS: His only medications at home include aspirin, losartan, omeprazole, and pravastatin. He has never to my knowledge taken anything like Antivert in low dose on a chronic basis, at least professes to have never done so. SOCIAL HISTORY: Reveals him to be . He is a nonsmoker. He formerly used ethanol in modest amounts, but has not had any of significance in 35 years. FAMILY HISTORY: Noncontributory and certainly reveals no evidence of individuals suffering from cerebellar degenerations or indeed any other neurologic disorders that might have vertigo as a common symptom. REVIEW OF SYSTEMS: Reveals an event last night where he became acutely dystaxic and vertiginous and was noted to have a significant elevation of his blood pressure when brought to the Emergency Room and subsequently admitted for assessment. Otherwise, there were no particular new issues referable to the head, eyes, ears, nose and throat, cardiovascular, pulmonary, gastrointestinal, genitourinary, hematologic, dermatologic, or endocrinologic systems. PHYSICAL EXAMINATION: VITAL SIGNS: On exam last night, he had an initial blood pressure of 212/107, but then this fell on to 171/91 and is now down to about 150/80. Pulse rate was 78-83. His oxygen saturations were 98%. He was afebrile. NEUROLOGIC: On exam today, he is alert, cooperative, oriented in 3 spheres, has a somewhat depressed affect and was just actually seen by psychiatry as this is one of his issues. He has normal eye movements, normal visual her, normal facial motility and strength, normal facial sensation, clear speech, and Hallpike maneuvers really induce only brief durations of subjective vertigo without any sustained nystagmus or indeed any nystagmus at all. He can stand. He walks a little hesitantly because of fear of falling, but once one gets him moving in the room, he does reasonably well, although on a limited basis, and I would be curious to see how well he does with physical therapy, which I am sure has been ordered. There is no tremor, tics, choreiform activity, drift, or pronation sign. There is no cogwheeling or evidence that would suggest an underlying disorder of the basal ganglia. Reflexes are all 1+ and symmetrical, safe for the ankle jerks which are trace. Toes are downgoing. No Gretel signs are seen. Strength testing is normal and sensation is actually fairly good for a man of his age revealing only minor reduction of his vibratory sensation distally over the toes and intact for preservation of position, light touch, temperature, and pinprick. LABORATORY DATA: Basic laboratory studies including a white count, hemoglobin, hematocrit, basic electrolytes, etc. were all unremarkable and an imaging study of his brain has shown only some white matter changes and no acute cerebrovascular events, etc. ASSESSMENT AND PLAN: At this point, I do not have any answers as to the causation of this man's 5-year history of disequilibrium. There are elements of it that do suggest positional vertigo, but this would not explain his chronic sense of imbalance and is probably a poor explanation for even the brief duration of events he suffers from. He is curious about trying some outpatient meclizine and I certainly have no objection to that and I did offer to take a look at him again in the clinic and try to reassess things, but this is something that needs to be done outpatient, not on an inpatient basis. At this point, since we see have no evidence for an infarction, the history would be atypical for this anyway, and his blood pressure seems to be coming down, I would simply recommend he be observed, that physical therapy assess his safety and if he feels he is back to his baseline and physical therapy thinks he can be discharged, send him home and I can take a look at him in the office in about 4-6 weeks. PABLO
[2019-02-19] MEDS ORDERED: HydrALAZINE HCL 20 MG/ML VIAL IV PRN (13:24)
--- NOTE | 2019-02-19 13:27 | Hospitalist Progress Note ---
Date of Service February 19, 2019 Assessment & Plan (1) Dizziness: CHRONIC DISEQUILIBRIUM / DIZZINESS : History of chronic dizziness/disequilibrium for 5 years with no etiology identified. Patient has been to [facility], physicians at [place], physicians at [facility] in [place], Dr. Van [facility] neurology group, ENT specialists for many years. Had an acute episode of dystaxia and dizziness not described as vertigo associated with 2 episodes of vomiting on day of admission. -Unclear etiology on basis of detailed H&P/negative imaging. Does not seem like vertigo or positional. Contributing factorblood pressure in 200s on arrival to ED -Clinically improved and back to his baseline. PT- cleared for discharge to home -Work up- MRI brain-no acute abnormality, nonspecific findings likely small vessel ischemic changes, CT headno acute abnormality -Neurology, Dr. Mccarthy evaluated the patientrecommends meclizine as needed trial as he has not had it in the past. Follow-up outpatient in 4 to 6 weeks HTN URGENCY BP in 200s on admission, now improved- 160s -Home regimen: Losartan 50 mg daily -Increased to losartan 50 mg PO BID here. BP today was in 180s , now down to 160s -Monitor BP outpatient closely ANXIETY/DEPRESSION Evaluated by psychiatry-need to rule out generalized anxiety disorder. Does not think dizziness is psychogenic or has psychosomatic disorder. For depression/anxiety- started on zoloft 25 mg daily and may consider increasing dose in few days if tolerating it well. -Per my discussion no suicidal ideations. Per discussion with psychiatry - did mention at times feels like shooting himself with gun which he has at home. But no intention of self harm in past or now. Falls in high risk category. Asked to relinquish the brown for the gun cabinet to a family member which he agreed. Psych nurse will help facilitate outpatient psychotherapy referral. Follow-up outpatient with psychiatry Patient was explained if he has any suicidal ideations he should report to the emergency room immediately ELEVATED BLOOD GLUCOSE -Blood glucose was in 130s -Monitor outpatient GERD -Continue with omeprazole 20 mg daily HYPERLIPIDEMIA -Continue with pravastatin 20 mg q HS DVT prophylaxis with Lovenox SQ Full code Disposition Eager to be discharged home Cleared for discharge by neurology Okay to discharge home today Subjective Patient is feeling better today. Does have chronic dizziness/disequilibrium which is at his baseline per Denies any cold-like symptoms, headaches, nausea, vomiting, blurry vision. No fever, chills, nasal congestion, chest pain, shortness of breath Physical Exam Physical Exam: GENERAL- AAOX3, No acute distress LUNGS- Air entry bilaterally equal. No rales, rhonchi, crackles, wheezes heard. HEART- Regular rate and rhythm. No murmurs ABDOMEN- Soft, non tender, non distended, Bowel sounds heard. EXTREMITIES- Good peripheral pulses, no edema NEUROMUSCULAR- AAOX3, cranial nerves intact, power5/5 all extremities. No nystagmus Results & Data Vital Signs (Past 12 Hours) Vital Signs Temp Pulse Pulse Resp BP BP BP 02/19/19 07:39 66 02/19/19 07:30 36.4 C L 71 18 154/77 H 02/19/19 02:45 73 02/19/19 02:11 36.7 C 77 16 165/96 H 02/19/19 01:31 74 18 151/87 H 02/19/19 00:11 83 20 171/91 H 02/18/19 22:17 78 20 177/113 H 02/18/19 21:49 36.7 C 77 20 212/107 H Pulse Ox 02/19/19 07:39 02/19/19 07:30 99 02/19/19 02:45 02/19/19 02:11 96 02/19/19 01:31 95 02/19/19 00:11 98 02/18/19 22:17 97 02/18/19 21:49 99
[2019-02-19] MEDS ORDERED: SERTRALINE HCL 50 MG TABLET PO SCH (13:30)
--- NOTE | 2019-02-19 15:08 | Discharge Summary ---
Date of Service February 19, 2019 Admission HPI Per Admitting Provider Per admission HPI: History obtained from patient and records. Medical history significant for hypertension, hyperlipidemia, chronic disequilibrium/balance impairment as per records. Recent confinement 2013 under Orthopedics service for back surgery. Patient has had gait/balance problem for a few years now where he feels unsteady while walking, dizziness described as lightheadedness, daily symptoms, occasional headache symptoms. Patient has been seen by local neurologists ([facility], [facility], [facility]). Neuropathy, ataxia, mood disturbance contributory to balance issues as per outpatient notes. Patient unconvinced by explanations to his problem. Patient not interested in undergoing EMG study recommended by one specialist. Last night, patient noted dizziness described as lightheadedness, nausea, emesis, achy headache symptoms, followed by increased gait instability. Denies chest pain, S OB. Admits to more stress than usual at home given 's recent stroke and care of grandchildren. Thinks he might be depressed and anxious. Denies suicidality. Patient does not take his blood pressure at home due to unreliable readings from home BP machine. Admits to salty food intake. On psychiatric assessment this morning patient reports 4-5 years of gait disturbance. Describes feeling imbalanced but not dizzy. Reports multiple neurological consultations at [facility], Evon Rubio, without clear etiology identified. Neuro re-consultation with Dr. Mccarthy pending for today. Patient describes significant frustration associated with his imbalance as it limits his activity and makes him feel sick. He describes himself historically as a always a very active person. Notably he just recently retired this past August after failing to adjust to penitentiary with a previous attempt and returned to work. He complains of loss of interest, at times feeling anhedonic, energy declined, increased crying spells, reports diminished appetite without weight loss, notable increase in irritability which makes him feel guilty, and more frequent thoughts of hopelessness in life not being worth living. He admits to some suicidal fantasy to shoot himself but denies that he has ever acted on this thought. He denies intent to shoot himself identifying his and grandchildren is protective. He does have access to guns however he keeps his guns locked and ammunition separate in his home. He is an avid vilma long- standing. He describes a tendency to worry long-standing. He believes his PCP prescribed him "nerve pills" of an recalled name several years ago but he took them for only a month as he did not want to take extra medication. He cannot recall if they were helpful. Regarding his tendency to worry he describes the anxiety as contributing to restlessness, on edge feeling, difficulty concentrating, increased irritability, muscle tension, and occasional mild sleep disturbance. He denies history of panic attacks. He denies history of obvious psychogenic symptomatology such as pseudoseizures or psychogenic paralysis. He does self identify as being something of a perfectionist and prefers things to be tidy and believes his would describe him as being rigid at times however he denies symptoms that would clearly support an obsessive-compulsive disorder diagnosis. He denies a history of hypomania, fannie, PTSD, psychosis, confusion, or substance abuse. He expresses willingness to see an outpatient counselor and is also amenable to a trial of an antidepressant. Apart from his imbalance and recent penitentiary he identifies several additional stressors including worry about his daughter chronically as he perceives her to be irresponsible, caring for his who has recently suffered medical illness of her own, and caring for his grandsons who spent the majority of their time at his home as he suspects they do not like their stepfather. Principal Diagnosis 1. Acute on chronic dizziness/disequilibrium 2. Hypertensive urgency 3. Anxiety/depression Secondary diagnoses on discharge 1. GERD 2. Hyperlipidemia Discharge Exam GENERAL- AAOX3, No acute distress LUNGS- Air entry bilaterally equal. No rales, rhonchi, crackles, wheezes heard. HEART- Regular rate and rhythm. No murmurs ABDOMEN- Soft, non tender, non distended, Bowel sounds heard. EXTREMITIES- Good peripheral pulses, no edema NEUROMUSCULAR- AAOX3, cranial nerves intact, power5/5 all extremities. No nystagmus Discharge Data Allergies Allergy/AdvReac Type Severity Reaction Status Date / Time No Known Allergies Allergy Verified 02/18/19 22:38 Consultations 02/18/19 23:08 ED Decision to Admit Stat 02/19/19 02:08 Consult Neurology Routine Consult Psychiatry Routine Ordered Studies 02/18/19 22:02 CT head/brain wo con Stat 02/18/19 23:08 MR brain wo/w con Stat Hospital Course (1) Dizziness: (2) Unsteady gait: CHRONIC DISEQUILIBRIUM / DIZZINESS : History of chronic dizziness/disequilibrium for 5 years with no etiology identified. Patient has been to [facility], physicians at [place], physicians at [facility] in [place], Dr. Van [facility] neurology group, ENT specialists for many years. Had an acute episode of dystaxia and dizziness not described as vertigo associated with 2 episodes of vomiting on day of admission. -Unclear etiology on basis of detailed H&P/negative imaging. Does not seem like vertigo or positional. Contributing factorblood pressure in 200s on arrival to ED -Clinically improved and back to his baseline. PT- cleared for discharge to home -Work up- MRI brain-no acute abnormality, nonspecific findings likely small vessel ischemic changes, CT headno acute abnormality -Neurology, Dr. Mccarthy evaluated the patientrecommends meclizine as needed trial as he has not had it in the past. Follow-up outpatient in 4 to 6 weeks HTN URGENCY BP in 200s on admission, now improved- 160s -Home regimen: Losartan 50 mg daily -Increased to losartan 50 mg PO BID here. BP today was in 180s , now down to 160s -Monitor BP outpatient closely ANXIETY/DEPRESSION Evaluated by psychiatry-need to rule out generalized anxiety disorder. Does not think dizziness is psychogenic or has psychosomatic disorder. For depression/anxiety- started on zoloft 25 mg daily and may consider increasing dose in few days if tolerating it well. -Per my discussion no suicidal ideations. Per discussion with psychiatry - did mention at times feels like shooting himself with gun which he has at home. But no intention of self harm in past or now. Falls in high risk category. Asked to relinquish the brown for the gun cabinet to a family member which he agreed. Psych nurse will help facilitate outpatient psychotherapy referral. Follow-up outpatient with psychiatry Patient was explained if he has any suicidal ideations he should report to the emergency room immediately ELEVATED BLOOD GLUCOSE -Blood glucose was in 130s -Monitor outpatient GERD -Continue with omeprazole 20 mg daily HYPERLIPIDEMIA -Continue with pravastatin 20 mg q HS DVT prophylaxis with Lovenox SQ Full code Disposition Eager to be discharged home Cleared for discharge by neurology Okay to discharge home today Total Time Total Time Spent Total Time Spent (In Minutes): 38 minutes Discharge Plan Discharge Items Patient Disposition: Home - Self-Care Reason For Visit: DIZZINESS Discharge Diagnosis: Acute on chronic dizziness Chronic disequilibrium Hypertensive urgency Condition: Good Discharge Goals: Decrease discomfort Activity: Resume your previous activity Non-emergency contact: Primary Care Provider Call non-emergency contact if: your symptoms worsen Follow-up/Referrals: Luke Mccarthy MD [Physician] - (Call office for appt in 4-6 weeks) Olga Nash, [Primary Care Provider] - (We will call you for appt date and time within 7 days as scheduling office is closed today) Addtl Provider Instructions: MEDICATION CHANGES 1. New medication-meclizine 25 mg 3 times a day as needed for dizziness/vertigo 2. Increase losartan to 50 mg twice a day from 50 mg daily Follow-up with neurology in 4 to 6 weeks Follow-up with PCP in 7 days Prescriptions: New sertraline 25 mg tablet 25 mg PO DAILY 30 Days Qty: 30 RF: 0 meclizine 25 mg tablet 25 mg PO TID PRN (Reason: dizziness) Qty: 20 RF: 0 Continued aspirin 81 mg Tablet,Delayed Release (Dr/Ec) 81 mg PO QAM RF: 0 omeprazole 20 mg capsule,delayed release(DR/EC) 20 mg PO QAM RF: 0 pravastatin 20 mg tablet 20 mg PO QAM RF: 0 Changed losartan 50 mg tablet 50 mg PO BID 30 Days Qty: 60 RF: 0 Stand-Alone Forms: [facility]/Other Patient Handouts: ED Dizziness UKO Discharge Orders: Discharge Order (Routine); Ordered 02/19/19 Ordered By: Maia Aragon Admission Data Admit Date/Time: 02/19/19 01:19 Attending Provider: Maia Aragon Admit Provider: Ben Llanes Primary Care Provider: Olga Nash Other Providers: Ben Llanes ; Luke Mccarthy ; Belen Amos Service: Telemetry Medical
[2019-02-19] MEDS ORDERED: LOSARTAN POTASSIUM 50 MG TAB PO SCH (21:00)
[2019-02-20 06:22] LABS: Estimated Average Glucose 128 mg/dl; Hemoglobin A1C 6.1 % (4.5-5.6)
== END 2019-02-19 16:43 | disposition home or self-care (01) ==
LOC: 2W 21:47 → ED 21:47 → 2W 02-19 01:44

== ENCOUNTER 2021-10-22 04:46 | Inpatient (IN) ==
[2021-10-22] MEDS ORDERED: MoRPHine SULFATE 4 MG/ML 1 ML CARP\\VIAL IV PRN (04:55)
[2021-10-22] MEDS ORDERED: ONDANSETRON INJ 2 MG/ML 2 ML VIAL IV STA (04:55)
[2021-10-22] MEDS ORDERED: SODIUM CHLORIDE 0.9% 1000ML 1,000 ML IV SCH (05:00)
[2021-10-22 05:45] LABS: Basophils # (auto) 0.02 K/uL (0-0.2); Basophils % (auto) 0.1 %; Hematocrit (blood only) 42.1 % (42-52); Hemoglobin 14.3 g/dL (14.0-18.0); Immature Granulocytes # (auto) 0.05 K/uL (0.00-0.02); Immature Granulocytes % (auto) 0.3 %; Lymphocytes % (auto) 8.7 %; Mean Corpuscular Hemoglobin 32.3 pg (25-34); Mean Platelet Volume 11.5 fL (7.4-10.4); Monocytes # (auto) 1.65 K/uL (0.11-0.59); Monocytes % (auto) 9.6 %; Neutrophils # (auto) 13.95 K/uL (1.4-6.5); Neutrophils % (auto) 81.3 %; Platelet Count 359 K/uL (130-400); RDW Coefficient of Variation 12.2 % (11.5-14.5); RDW Standard Deviation 42.3 fL (36.4-46.3); Red Blood Count 4.43 M/uL (4.7-6.1); White Blood Count 17.17 K/uL (4.8-10.8)
[2021-10-22] MEDS ORDERED: PIPERACILL/TAZOBAC CONSULT ACTIVE PRN ×2 (06:06→08:42)
[2021-10-22] MEDS ORDERED: PIPERACILLIN/TAZOBACTAM 4.5 GM/120 ML BAG IV ONE (06:06)
--- NOTE | 2021-10-22 06:16 | Emergency Department Note ---
History of Present Illness General Chief complaint: Abdominal Pain Stated complaint: ABD PAIN Time Seen by Provider: 10/22/21 04:51 History of Present Illness Maximum Pain Intensity: 7 This is a 76-year-old male presenting to the emergency department for evaluation of upper abdominal pain over the past week. The patient was seen and evaluated in this facility several days ago where CT scan and ultrasound did show gallstones but no obvious cholecystitis. The patient was discharged and did follow-up with [facility] surgery, Dr. Morton, as an outpatient. He is scheduled for elective cholecystectomy on November 09, 2021. The patient states that over the past 2 days his pain has intensified and is not relieved with oxycodone. He has not had fevers or chills. The patient had a small amount of food at 12 noon yesterday, but nothing since. He rates his discomfort a 7/10 and began having vomiting tonight, prompting him to come to the ER for reevaluation. Home Medications Medication Instructions Recorded Confirmed Type aspirin 81 mg tablet,delayed 81 mg PO QAM 02/18/19 10/16/21 History release losartan 50 mg tablet 50 mg PO DAILY 01/11/20 10/16/21 History nitroglycerin 0.4 mg sublingual 0.4 mg SUBLINGUAL PRN PRN #30 tab 01/13/20 10/16/21 Rx tablet (Nitrostat) multivitamin 1 tab PO QAM 10/16/21 10/16/21 History oxycodone-acetaminophen 5 mg-325 1 tab PO Q4H PRN #20 tab 10/16/21 Rx mg tablet (Percocet) rosuvastatin 5 mg tablet 5 mg PO DAILY 10/16/21 10/16/21 History Allergies Allergy/AdvReac Type Severity Reaction Status Date / Time No Known Allergies Allergy Verified 10/16/21 19:10 Past Med/Surg History Medical History (Updated 10/22/21 @ 23:26 by Uli Louis PA-C) Coronary artery disease First degree AV block Grade II diastolic dysfunction HTN (hypertension) Hyperlipidemia Kidney stones Lumbar spinal stenosis Myocardial infarct 2019 Surgical History History of back surgery x 2 History of carpal tunnel release History of tonsillectomy and adenoidectomy Family History Father Myocardial infarction, Onset Age: 65 Hx of CABG Brother Myocardial infarction Mother Myocardial infarction, Onset Age: 72 Social History Smoking Status: Never smoker Second Hand Exposure: No; Hx Alcohol Use: No Hx Substance Use: No Preferred Language: Brazilian Communication Ability: Effective Database Analyst Required: No Beliefs That Will Affect Care: None Current Living Situation: Spouse Feels Safe at Home: Yes Assistive Devices: None Review of Systems A total of 10 systems reviewed and were otherwise negative Physical Exam Vital Signs Vital Signs - 24 hr 10/22/21 04:49 10/22/21 06:09 10/22/21 06:11 Temperature 36.4 C L Temperature Source Temporal Artery Scan Pulse Rate 88 93 H Pulse Rate [Apical] 91 H Pulse Rate from SpO2 Sensor Respiratory Rate 16 18 20 Respiratory Effort / Characteristics Non-Labored Spontaneous Non-Labored Spontaneous Respiratory Depth Normal Normal Blood Pressure 147/78 H Blood Pressure [Right Arm] 180/74 H Blood Pressure Mean 101 Blood Pressure Mean [Right Arm] 109 Pulse Oximetry 100 99 98 Oxygen Delivery Method Room Air Room Air Room Air Sepsis Recent Fever Within 48 Hours No Sepsis New/Unexplained Change in Mental Status No Sepsis Action Taken by Nursing No Action Required 10/22/21 06:30 Temperature Temperature Source Pulse Rate 94 H Pulse Rate [Apical] Pulse Rate from SpO2 Sensor 97 H Respiratory Rate 18 Respiratory Effort / Characteristics Respiratory Depth Blood Pressure 161/78 H Blood Pressure [Right Arm] Blood Pressure Mean 105 Blood Pressure Mean [Right Arm] Pulse Oximetry 95 Oxygen Delivery Method Room Air Sepsis Recent Fever Within 48 Hours Sepsis New/Unexplained Change in Mental Status Sepsis Action Taken by Nursing VITALS: Vitals are noted on the nurse's note and reviewed by myself. Vital signs stable. GENERAL: Well-developed, well-nourished, white male who is both very pleasant and uncomfortable appearing on exam. He is cooperative with the exam. NECK: Supple without nuchal rigidity. No lymphadenopathy. No thyromegaly. Cervical spine is nontender. HEART: Regular rate and rhythm without murmurs gallops or rubs. LUNGS: Clear to auscultation bilaterally without wheezes, rales or rhonchi. No retractions or accessory muscle use. ABDOMEN: Positive normal bowel sounds x 4. Soft with epigastric and right upper quadrant tenderness. No distinct rebound. MUSCULOSKELETAL: No muscle atrophy, erythema, or edema noted. Full range of motion in all extremities. Course Administered Medications Aspirin (Aspirin 81 Mg Ectab) 81 mg PO QAM [facility] Stop: 11/21/21 08:59 Last Admin: 10/22/21 10:12 Dose: 81 mg Documented by: [id number] Hydromorphone HCl (Hydromorphone Inj 0.5 Mg/0.5 Ml Syr) 0.5 mg IV Q3H PRN PRN Reason: Pain Stop: 11/05/21 08:41 Last Admin: 10/22/21 21:39 Dose: 0.5 mg Documented by: [id number] Admin: 10/22/21 17:50 Dose: 0.5 mg Documented by: [id number] Admin: 10/22/21 11:41 Dose: 0.5 mg Documented by: [id number] Dextrose/Sodium Chloride (D5w And 1/2nss) 1,000 mls @ 75 mls/hr IV .[id number] [facility] Stop: 11/21/21 08:41 Last Admin: 10/22/21 17:54 Dose: 75 mls/hr Documented by: [id number] Infusion: 10/22/21 15:59 Dose: 0 mls/hr Documented by: [id number] Admin: 10/22/21 08:57 Dose: 125 mls/hr Documented by: [id number] Piperacillin Sod/Tazobactam (Sod 3.375 gm/ Dextrose) 115 mls @ 28.75 mls/hr IV Q8H [facility]; Protocol Stop: 11/01/21 08:41 Last Infusion: 10/22/21 23:02 Dose: 0 mls/hr Documented by: [id number] Admin: 10/22/21 18:31 Dose: 28.8 mls/hr Documented by: [id number] Infusion: 10/22/21 13:45 Dose: 0 mls/hr Documented by: [id number] Admin: 10/22/21 09:45 Dose: 28.8 mls/hr Documented by: [id number] Multivitamins (Multivitamin Tab) [facility] Stop: 11/21/21 08:59 Last Admin: 10/22/21 10:11 Dose: 1 tab Documented by: [id number] Oxycodone/Acetaminophen (Oxycodone/Acetaminophen 5mg/325mg Tab) 1 tab PO Q4H PRN PRN Reason: pain Stop: 11/05/21 08:41 Last Admin: 10/22/21 08:57 Dose: 1 tab Documented by: [id number] Oxycodone/Acetaminophen (Oxycodone/Acetaminophen 5mg/325mg Tab) 2 tab PO Q4H PRN PRN Reason: Pain Stop: 11/05/21 17:45 Last Admin: 10/22/21 19:45 Dose: 2 tab Documented by: [id number] Rosuvastatin Calcium (Rosuvastatin Calcium 5 Mg Tab) 5 mg PO DAILY [facility] Stop: 11/21/21 08:59 Last Admin: 10/22/21 09:45 Dose: 5 mg Documented by: [id number] Discontinued Medications Bupivacaine HCl (Bupivacaine 0.5 % 5 Mg/1 Ml Mpf 30ml Vial) Confirm Administered Dose 30 ml .ROUTE .STK-MED ONE Stop: 10/22/21 13:34 Last Admin: 10/22/21 14:52 Dose: 30 ml Documented by: [id number] Fentanyl Citrate (Fentanyl Citrate 100 Mcg/2 Ml Vial) 25 mcg IV Q5M PRN PRN Reason: PACU Use Only-Pain Stop: 10/22/21 21:48 Last Admin: 10/22/21 15:43 Dose: 25 mcg Documented by: [id number] Admin: 10/22/21 15:38 Dose: 25 mcg Documented by: [id number] Admin: 10/22/21 15:28 Dose: 25 mcg Documented by: [id number] Sodium Chloride (Nss 1000ml) 1,000 mls @ 250 mls/hr IV .Q4H [facility] Stop: 10/22/21 08:59 Last Infusion: 10/22/21 09:00 Dose: 0 mls/hr Documented by: [id number] Infusion: 10/22/21 05:47 Dose: 0 mls/hr Documented by: [id number] Admin: 10/22/21 05:34 Dose: 250 mls/hr Documented by: [id number] Piperacillin Sod/Tazobactam Sod (Zosyn) 4.5 gm in 120 mls @ 240 mls/hr IV NOW ONE Stop: 10/22/21 06:35 Last Infusion: 10/22/21 06:58 Dose: 0 mls/hr Documented by: [id number] Admin: 10/22/21 06:14 Dose: 240 mls/hr Documented by: [id number] Morphine Sulfate (Morphine Sulfate 4 Mg/Ml 1 Ml Carp\Vial) 4 mg IV Q30M PRN PRN Reason: Pain Stop: 11/05/21 04:54 Last Admin: 10/22/21 05:34 Dose: 4 mg Documented by: [id number] Ondansetron HCl (Ondansetron Inj 2 Mg/Ml 2 Ml Vial) 4 mg IV NOW STA Stop: 10/22/21 04:56 Last Admin: 10/22/21 05:34 Dose: 4 mg Documented by: [id number] Medical Decision Making Differential Diagnosis Differential diagnosis: Etiologies such as biliary colic, cholecystitis, hepatitis, pancreatitis, cardiac disease, pancreatitis, gastritis, peptic ulcer disease, appendicitis, cystitis, diverticulitis, mesenteric ischemia, inflammatory bowel disease, ileus, bowel obstruction, testicular/adnexal torsion, aortic pathology, shingles, as well as others were considered Laboratory Data Result diagrams: 10/22/21 05:25 10/22/21 07:00 Lab Results 10/22/21 10/22/21 10/22/21 Range/Units 05:07 05:25 05:25 WBC 17.17 H (4.8-10.8) K/uL RBC 4.43 L (4.7-6.1) M/uL Hgb 14.3 (14.0-18.0) g/dL Hct 42.1 (42-52) % MCV 95.0 (80-100) fL MCH 32.3 (25-34) pg MCHC 34.0 (32-36) g/dL RDW Std Deviation 42.3 (36.4-46.3) fL RDW Coeff of Charles 12.2 (11.5-14.5) % Plt Count 359 (130-400) K/uL MPV 11.5 H (7.4-10.4) fL Immature Gran % (Auto) 0.3 % Neut % (Auto) 81.3 % Lymph % (Auto) 8.7 % Pickett % (Auto) 9.6 % Eos % (Auto) 0.0 % Baso % (Auto) 0.1 % Neut # (Auto) 13.95 H (1.4-6.5) K/uL Lymph # (Auto) 1.50 (1.2-3.4) K/uL Pickett # (Auto) 1.65 H (0.11-0.59) K/uL Eos # (Auto) 0.00 (0-0.5) K/uL Baso # (Auto) 0.02 (0-0.2) K/uL Immature Gran # (Auto) 0.05 H (0.00-0.02) K/uL PT INR APTT PTT Ratio Sodium Cancelled Potassium Cancelled Chloride Cancelled Carbon Dioxide Cancelled Anion Gap Cancelled BUN Cancelled Creatinine Cancelled Est Cr Clr Drug Dosing Cancelled Est GFR ( Amer) Cancelled Est GFR (Non-Af Amer) Cancelled BUN/Creatinine Ratio Cancelled Glucose Cancelled Calcium Cancelled Total Bilirubin Cancelled AST Cancelled ALT Cancelled Alkaline Phosphatase Cancelled Troponin I Cancelled Total Protein Cancelled Albumin Cancelled Globulin Cancelled Albumin/Globulin Ratio Cancelled Lipase Cancelled SARS-CoV-2, RNA, NAAT NEGATIVE (NEGATIVE) 10/22/21 Range/Units 05:35 WBC (4.8-10.8) K/uL RBC (4.7-6.1) M/uL Hgb (14.0-18.0) g/dL Hct (42-52) % MCV (80-100) fL MCH (25-34) pg MCHC (32-36) g/dL RDW Std Deviation (36.4-46.3) fL RDW Coeff of Charles (11.5-14.5) % Plt Count (130-400) K/uL MPV (7.4-10.4) fL Immature Gran % (Auto) % Neut % (Auto) % Lymph % (Auto) % Pickett % (Auto) % Eos % (Auto) % Baso % (Auto) % Neut # (Auto) (1.4-6.5) K/uL Lymph # (Auto) (1.2-3.4) K/uL Pickett # (Auto) (0.11-0.59) K/uL Eos # (Auto) (0-0.5) K/uL Baso # (Auto) (0-0.2) K/uL Immature Gran # (Auto) (0.00-0.02) K/uL PT Cancelled INR Cancelled APTT Cancelled PTT Ratio Cancelled Sodium Potassium Chloride Carbon Dioxide Anion Gap BUN Creatinine Est Cr Clr Drug Dosing Est GFR ( Amer) Est GFR (Non-Af Amer) BUN/Creatinine Ratio Glucose Calcium Total Bilirubin AST ALT Alkaline Phosphatase Troponin I Total Protein Albumin Globulin Albumin/Globulin Ratio Lipase SARS-CoV-2, RNA, NAAT (NEGATIVE) Imaging Data Radiologist's Impression: Gallbladder Ultrasound 10/22/21 04:57 US gallbladder CLINICAL HISTORY: Right upper quadrant abdominal pain. COMPARISON STUDY: CT of the abdomen and pelvis and right upper quadrant ultrasound October 16, 2021. FINDINGS: No hepatic lesions are identified. There is no biliary ductal dilatat ion. Common bile duct measures 3 mm in caliber. Gallstones and sludge within the gallbladder are present. No sonographic Lee sign was elicited. Gallbladder is mildly distended. There is no pericholecystic fluid. No gallbladder wall thickening is present. There is no right hydronephrosis. Pancreas is obscured by overlying bowel gas. IMPRESSION: 1. Cholelithiasis and mild gallbladder distention. No gallbladder wall thickening or sonographic Lee sign. Acute cholecystitis cannot be excluded. A hepatobiliary scan could be obtained as indicated. 2. No biliary ductal dilatation. ACT 112: Negative or not required by law. Electronically signed by: Kahlil Valencia M.D. 10/22/2021 6:44 AM [facility] Narrative Physical exam and history were performed. Nursing notes, EMR, and Medication List were personally reviewed. Patient appears to have worsening abdominal pain with concerning history of biliary colic. IV access was established and labs were obtained. He was hydrated normal saline and given IV morphine and IV Zofran for comfort. The patient was sent to ultrasound. Patient's blood work is as above and was reviewed. He does have an elevated white blood cell count of 17,000 which is higher than a few days ago it was 13,000. He does not have a significant anemia, bandemia, or gross electrolyte imbalance. Lipase and transaminases are not diagnostic. Covid swab is negative. Ultrasound was reviewed by myself and radiology does not show distinct acute cholecystitis, however his clinical presentation is quite worrisome. The patient was given IV Zosyn here in the ER. I did discuss the case with [facility] who will evaluate the patient here in the ER. The patient will need surgical evaluation, and Dr. Morton has previously met with the patient. If possible Dr. Morton will evaluate the patient, if not the other surgical team is comfortable following patient's care. Please see their dictations for further patient course, plan, disposition. The chart was completed utilizing [employer] Voice Recognition Software. Grammatical errors, random word insertions, pronoun errors, and incomplete sentences are an occasional consequence of this system due to software esparza itations, ambient noise, and hardware issues. Any formal questions or concerns about the content, text, or information contained within the body of this dictation should be directly addressed to the provider for clarification. . Impression & Plan Biliary colic, Cholelithiasis Discharge Plan Visit Data Chief Complaint: Abdominal Pain Stated Complaint: ABD PAIN ED Provider: Pili Vega ED Midlevel Provider: Uli Louis Discharge Problem: Biliary colic, Cholelithiasis Patient Disposition: Admitted As Inpatient Discharge Instructions Interventions: ED Discharge Assessment Last Done: 10/22/21 08:43
--- NOTE | 2021-10-22 06:45 | Ultrasound Report ---
US gallbladder CLINICAL HISTORY: Right upper quadrant abdominal pain. COMPARISON STUDY: CT of the abdomen and pelvis and right upper quadrant ultrasound October 16, 2021 . FINDINGS: No hepatic lesions are identified. There is no biliary ductal dilatation. Common bile duct measures 3 mm in caliber. Gallstones and sludge within the gallbladder are present. No sonographic Mu rphy sign was elicited. Gallbladder is mildly distended. There is no pericholecystic fluid. No gallbl adder wall thickening is present. There is no right hydronephrosis. Pancreas is obscured by overlying bowel gas. IMPRESSION: 1. Cholelithiasis and mild gallbladder distention. No gallbladder wall thickening or sonographic Murp hy sign. Acute cholecystitis cannot be excluded. A hepatobiliary scan could be obtained as indicated. 2. No biliary ductal dilatation. ACT 112: Negative or not required by law. Electronically signed by: Kahlil Valencia M.D. 10/22/2021 6:44 AM
[2021-10-22 07:20] LABS: Prothrombin Time 10.4 Seconds (9.0-12.0)
[2021-10-22 07:31] LABS: Troponin I < 0.03 ng/ml (0-0.04)
[2021-10-22 07:37] LABS: Alanine Aminotransferase 11 U/L (7-52); Albumin Globulin Ratio 1.3 (0.9-2); Alkaline Phosphatase 71 U/L (34-104); Anion Gap 10 (3-11); Aspartate Aminotransferase 13 U/L (13-39); BUN Creatinine Ratio 18.8 (10-20); Bilirubin,Total 1.1 mg/dl (0.2-1.0); Blood Urea Nitrogen 18 mg/dl (6-23); Calcium 9.1 mg/dl (8.5-10.1); Carbon Dioxide 23 mmol/L (21-32); Chloride 101 mmol/L (98-107); Creatinine Clr Calc Pharmacy 60.2 ml/min; Est GFR (Non-African American) 75.9 ml/min; Globulin 3.2 gm/dl (2.5-4.0); Glucose 151 mg/dl (70-99(Fasting)); Lipase 14 U/L (11-82); Potassium 4.3 mmol/L (3.5-5.1); Sodium 134 mmol/L (136-145); Total Protein 7.2 gm/dl (6.0-8.3)
--- NOTE | 2021-10-22 07:38 | XRay Report ---
XR chest 1V portable CLINICAL HISTORY: Preoperative evaluation. COMPARISON STUDY: Chest radiograph January 23, 2020. FINDINGS: There is mild elevation of the right hemidiaphragm. No pneumothorax or pleural effusion is noted. No consolidation or evidence for pulmonary edema. Cardiac size is at the upper limits of floridalma l. IMPRESSION: 1. No acute cardiopulmonary findings. 2. Mild elevation of the right hemidiaphragm. ACT 112: Negative or not required by law. Electronically signed by: Kahlil Valencia M.D. 10/22/2021 7:36 AM
--- NOTE | 2021-10-22 08:20 | History and Physical Report ---
DATE OF ADMISSION: 10/22/2021. CHIEF COMPLAINT: Abdominal pain. HISTORY OF PRESENT ILLNESS: This 76-year-old male with past medical history significant for hyperlipidemia, chronic rhinitis, first-degree AV block, hypertension, CAD, sciatica, balance disorder, spinal stenosis, comes because of abdominal pain. The patient was in the ER on 10/16/2021 with abdominal pain. The pain started after eating a Burger. At that time, CT of abdomen and pelvis was done, which showed distended gallbladder containing calcified gallstones, mild pericholecystic stranding and fluid suspicious for acute cholecystitis and gallbladder ultrasound was also done, which was showing cholelithiasis with no ultrasound evidence for acute cholecystitis and the patient did fine and was discharged to follow up with General Surgery. He saw General Surgery on 10/20/2021 and there is a plan for elective surgery to be done on 11/09/2021 as per the patient, but the pain is not getting better, the last 2 days got worse. He is not able to eat anything except for liquids. Pain is located in the right upper quadrant and radiating to his middle of abdomen, very severe in nature, also has some nausea, which prompted her to come to the ER today. He had an gallbladder ultrasound done today showing same cholelithiasis and mild gallbladder distention acute Cholecystitis cannot be excluded. As the patient has persistent symptoms, we are admitting the patient for possible surgery during the hospital stay. The patient is afebrile. Has constipation. Denies any blood in stools or black stools. Normal bladder movements. No chest pain, no shortness of breath, no cough, no headache, no blurred visions, no earache, no runny nose, no sore throat, hemodynamically stable. After pain medication in the ER, the pain is better. ALLERGIES: No known drug allergies. PAST MEDICAL HISTORY: As mentioned above. PAST SURGICAL HISTORY: Carpal tunnel surgery, back surgery x2, tonsillectomy and adenoidectomy. MEDICATIONS: The patient is on aspirin 81 mg p.o. daily, losartan 50 mg p.o. daily, multivitamin 1 tablet p.o. daily, nitroglycerin 0.4 mg sublingual p.r.n., Percocet 1 tablet p.o. q. 4 hours p.r.n., pravastatin 5 mg p.o. daily. FAMILY HISTORY: Significant for brother has heart disorder, father had CABG at age 65. Maternal grandfather at age of 52 by NV. Mother had NV at age of 72. SOCIAL HISTORY: , no smoking, no alcohol, no drug use. REVIEW OF SYSTEMS: As per HPI. Rest of review of systems negative. PHYSICAL EXAMINATION: GENERAL: The patient is of moderate build, not in acute distress. VITAL SIGNS: Temperature 36.4, pulse 94, respiratory rate 18, blood pressure 161/78, oxygen 95% on room air. HEENT: Pupils equal, round and reactive to light. Oral mucosa moist. NECK: No JVD. No neck masses. CARDIOVASCULAR: S1 and S2 heard. Regular rate and rhythm. No murmur, no gallop. RESPIRATORY SYSTEM: Normal AP diameter. No accessory muscle use. No wheezing, no crackles. ABDOMEN: Soft, bowel sounds present. Tenderness in the right upper quadrant region with mild guarding. No rigidity, no distention. CENTRAL NERVOUS SYSTEM: Cranial nerves II-XII grossly intact, nonfocal. EXTREMITIES: No edema, no erythema. LABORATORY DATA: WBC 17, hemoglobin 14.3, hematocrit 42.1, platelets 359. SARS-CoV-2 negative. Gallbladder ultrasound showing cholelithiasis and mild gallbladder distention, no gallbladder wall thickening, also no classic Lee sign. Acute cholecystitis cannot be excluded. HIDA scan also could be obtained. No biliary ductal dilatation. EKG: Normal sinus rhythm at a rate of 86, no significant change was found. ASSESSMENT AND PLAN: This is a 76-year-old male who presents with abdominal pain. 1. Abdominal pain, possible cholecystitis, has gallstones. Symptoms are not getting better. He was in the ER on 10/16/2021 and also followed with General Surgery on 10/20/2021, but last 2 days, not eating or drinking anything except for liquids, significant pain. We will admit the patient to the medical floor, n.p.o., IV fluids, IV Zosyn and IV Dilaudid p.r.n. Consult General Surgery for possible cholecystectomy. 2. History of coronary artery disease, status post stents as per the patient couple of years ago. Continue his aspirin, statin. 3. Chronic diastolic dysfunction with normal EF. We will monitor for any volume overload. 4. History of hypertension. Holding his losartan in anticipation of surgery. We will place him on IV hydralazine p.r.n. 5. Hyperlipidemia, on statin. 6. Balance disorder Going on for last 14yrs as per the patient. 7. Deep venous thrombosis prophylaxis: Sequential compression devices for now. DISPOSITION: Admit to medical floor. Expect to discharge home and follow with family doctor. Level 1 full code. Job ID: [id number] [id number]
[2021-10-22] MEDS ORDERED: ONDANSETRON INJ 2 MG/ML 2 ML VIAL IV PRN ×2 (08:42→13:48)
[2021-10-22] MEDS ORDERED: NITROGLYCERIN SL 0.4 MG/TAB TAB SL PRN (08:42)
[2021-10-22] MEDS ORDERED: hydrALAZINE HCL 20 MG/ML VIAL IV PRN (08:42)
[2021-10-22] MEDS: D5W AND 1/2NSS 1,000 ML IV SCH ×2 (08:57→17:54)
[2021-10-22] MEDS: oxyCODONE/ACETAMINOPHEN 5mg/325mg TAB PO PRN (08:57)
[2021-10-22] MEDS: PIPERACILLIN/TAZOBACTAM 3.375 GM in DEXTROSE 5% 100 ML IV SCH ×2 (09:45→18:31)
[2021-10-22] MEDS: ROSUVASTATIN CALCIUM 5 MG TAB PO SCH (09:45)
[2021-10-22] MEDS: MULTIVITAMIN TAB PO SCH (10:11)
[2021-10-22] MEDS: ASPIRIN 81 MG ECTAB PO SCH (10:12)
--- NOTE | 2021-10-22 10:52 | Surgery Consultation ---
Date of Consultation October 22, 2021 Assessment & Plan (1) Acute cholecystitis: This is a 76yM with a PMH of CA with stents ~2 years ago on aspirin who presents to the [facility] ED on 10/22/21 with complaints of abdominal pain since last Wednesday. Of note patient was recently evaluated in our ED on 10/16 and was found to have gallstones and was scheduled to have his gallbladder removed by Dr. Morton on 11/11. Unfortunately patient's abdominal pain has returned and has been constant since wednesday. In the ER today an US was obtained that revealed + gallstones with mild gallbladder distention, no gallbladder wall thickening or sonographic Lee sign, and acute cholecystitis cannot be excluded. WBC 17. LFTs show Tb: 1.1, AST: 13, ALT: 11, Alkp: 71. On exam patient's abdomen is soft and tender in the RUQ. Hospitalists admitted patient. He is NPO with IVF and has been started on IV abx. We will proceed with surgical intervention this admission for lap ania, pending OR schedule this will happen later today vs. tomorrow. Please keep NPO. Supervising Physician Co-Signing Physician Notes Patient seen and examined, labs and imaging reviewed, agree with above. 76-year-old male with known gallstones presented to the emergency department with 48 hours of right upper quadrant pain. He was seen in the emergency department last week and followed up with Dr. Morton on Wednesday, however his pain returned and has not subsided. On exam he is afebrile with stable vitals. His abdomen is soft, tender to palpation in the right upper quadrant. WBC is 17, T bili 1 but other LFTs are normal. Ultrasound showed cholelithiasis with a distended gallbladder but no pericholecystic fluid or gallbladder wall thickening. Cholelithiasis with likely acute cholecystitis Plan for laparoscopic cholecystectomy with possible cholangiogram Risk the procedure were discussed to include but not limited to bleeding, infection, retained stone, bile leak, damage surrounding structures including common bile duct, need for future more extensive surgery, conversion open, and the risk of anesthesia Appreciate medicine's management of this patient Plan for surgery later today, possible tomorrow History of Present Illness Attending Physician: lAbino Lewis MD History of Present Illness This is a 76yM with a PMH of CA with stents ~2 years ago on aspirin who presents to the [facility] ED on 10/22/21 with complaints of abdominal pain. Of note the patient was evaluated in our ED on 10/16 and was found to have gallstones, he was referred to [facility] surgeon Dr Morton who he saw as an outpatient on Wednesday. He tentative scheduled to have his GB removed on 11/11. Unfortunately after patient's appointment he developed constant abdominal pain since Wednesday evening that has not gone away. It continued to progress, therefore he returned to the ER for further evaluation. In the ER a repeat US was obtained that revealed + gallstones with mild gallbladder distention, no gallbladder wall thickening or sonographic Lee sign, and acute cholecystitis cannot be excluded. Patient reports his abdominal pain is mostly located in the right upper abdomen and radiates across and goes into his R back. He endorses + nausea and vomited a small amount this AM. Denies f/c, CP/SOB, or change in bowel habits. He says there is no association with food intake. He last ate yesterday at 9AM a bowl of cereal. No prior abdominal surgical history. Allergies Allergy/AdvReac Type Severity Reaction Status Date / Time No Known Allergies Allergy Verified 10/16/21 19:10 Home Medications Medication Instructions Recorded Confirmed Type aspirin 81 mg tablet,delayed 81 mg PO QAM 02/18/19 10/16/21 History release losartan 50 mg tablet 50 mg PO DAILY 01/11/20 10/16/21 History nitroglycerin 0.4 mg sublingual 0.4 mg SUBLINGUAL PRN PRN #30 tab 01/13/20 10/16/21 Rx tablet (Nitrostat) multivitamin 1 tab PO QAM 10/16/21 10/16/21 History oxycodone-acetaminophen 5 mg-325 1 tab PO Q4H PRN #20 tab 10/16/21 Rx mg tablet (Percocet) rosuvastatin 5 mg tablet 5 mg PO DAILY 10/16/21 10/16/21 History Patient History Medical History (Updated 10/22/21 @ 11:03 by Vivi Sifuentes PA-C) First degree AV block HTN (hypertension) Hyperlipidemia Kidney stones Lumbar spinal stenosis Surgical History History of back surgery x 2 History of carpal tunnel release History of tonsillectomy and adenoidectomy Family History Father Myocardial infarction, Onset Age: 65 Hx of CABG Brother Myocardial infarction Mother Myocardial infarction, Onset Age: 72 Social History Smoking Status: Never smoker Second Hand Exposure: No; Hx Alcohol Use: No Hx Substance Use: No Preferred Language: Uzbek Communication Ability: Effective Marketing Information Analyst Required: No Beliefs That Will Affect Care: None Current Living Situation: Spouse Feels Safe at Home: Yes Assistive Devices: None Review of Systems Constitutional: no fever and no chills Respiratory: no dyspnea Cardiovascular: no chest pain Gastrointestinal: + abdominal pain, + bloating, + nausea and + vomiting; no change in bowel habits Physical Exam Physical Exam: awake/alert, no acute distress Respiratory: normal respiratory effort Gastrointestinal (Abdomen): Percussion/Palpation: + abdomen tender (RUQ) and abdomen soft Results & Data ([facility]) Vital Signs (Past 12 Hours) Vital Signs Temp Pulse Pulse Resp BP BP Pulse Ox 10/22/21 10:13 93 H 16 119/64 96 10/22/21 09:04 100 H 20 160/72 H 98 10/22/21 08:30 93 H 16 156/70 H 94 10/22/21 07:00 93 H 17 140/78 97 10/22/21 06:30 94 H 18 161/78 H 95 10/22/21 06:11 93 H 20 98 10/22/21 06:09 91 H 18 180/74 H 99 10/22/21 04:49 36.4 C L 88 16 147/78 H 100 Diagnostic Findings US gallbladder CLINICAL HISTORY: Right upper quadrant abdominal pain. COMPARISON STUDY: CT of the abdomen and pelvis and right upper quadrant ultrasound October 16, 2021. FINDINGS: No hepatic lesions are identified. There is no biliary ductal dilatation. Common bile duct measures 3 mm in caliber. Gallstones and sludge within the gallbladder are present. No sonographic Lee sign was elicited. Gallbladder is mildly distended. There is no pericholecystic fluid. No gallbladder wall thickening is present. There is no right hydronephrosis. Pancreas is obscured by overlying bowel gas. IMPRESSION: 1. Cholelithiasis and mild gallbladder distention. No gallbladder wall thickening or sonographic Lee sign. Acute cholecystitis cannot be excluded. A hepatobiliary scan could be obtained as indicated. 2. No biliary ductal dilatation. ACT 112: Negative or not required by law. Electronically signed by: Kahlil Valencia M.D. 10/22/2021 6:44 AM PG Care Time/CCT Total # of Minutes Spent Total Time Spent with Patient: Total time spent is greater than 50% in coordination of care (as documented) at patient's floor/unit and/or counseling patient: Coding Level of Care Code 73011 Initial Inpt Care Lvl 2 Diagnoses Acute cholecystitis K81.0
[2021-10-22] MEDS: HYDROmorphone INJ 0.5 MG/0.5 ML SYR IV PRN ×3 (11:41→21:39)
--- NOTE | 2021-10-22 11:54 | Electrocardiogram Report ---
Test Reason : Blood Pressure : / mmHG Vent. Rate : 086 BPM Atrial Rate : 086 BPM P-R Int : 196 ms QRS Dur : 090 ms QT Int : 364 ms P-R-T Axes : 042 021 022 degrees QTc Int : 435 ms Normal sinus rhythm Normal ECG When compared with ECG of 16-OCT-2021 16:37, No significant change was found Confirmed by Beltran Huerta ([id number]) on 10/22/2021 11:54:04 AM Referred By: REFERRED SELF Confirmed By:Alvaro Huerta
--- NOTE | 2021-10-22 12:24 | Anesthesiology Consultation ---
Date of Service October 22, 2021 Assessment & Plan (1) Encounter for pre-operative examination: Chart Review Chart Review: customs entry writer initiated History Surgery Operation Date: 10/22/21 13:50 Proposed Procedures p Laparoscopic Cholecystectomy - Alistair Cody DO, FACS Height/Weight Height: 5 ft 7 in Weight: 71.9 kg Allergies Allergy/AdvReac Type Severity Reaction Status Date / Time No Known Allergies Allergy Verified 10/16/21 19:10 Medications Home Medications Medication Instructions Recorded Confirmed Last Taken aspirin 81 mg tablet,delayed 81 mg PO QAM 02/18/19 10/16/21 10/16/21 release losartan 50 mg tablet 50 mg PO DAILY 01/11/20 10/16/21 10/16/21 nitroglycerin 0.4 mg sublingual 0.4 mg SUBLINGUAL PRN PRN #30 tab 01/13/20 10/16/21 Unknown tablet (Nitrostat) multivitamin 1 tab PO QAM 10/16/21 10/16/21 10/16/21 oxycodone-acetaminophen 5 mg-325 1 tab PO Q4H PRN #20 tab 10/16/21 Unknown mg tablet (Percocet) rosuvastatin 5 mg tablet 5 mg PO DAILY 10/16/21 10/16/21 10/16/21 Active Medications Generic Name Dose Route Start Last Admin Trade Name Freq PRN Reason Stop Dose Admin Aspirin 81 mg 10/22/21 09:00 10/22/21 10:12 Aspirin 81 Mg Ectab PO 11/21/21 08:59 81 mg QAM MAEVE Administration Hydromorphone HCl 0.5 mg 10/22/21 08:42 10/22/21 11:41 Hydromorphone Inj 0.5 Mg/0.5 Ml Syr IV 11/05/21 08:41 0.5 mg Q3H PRN Administration Pain Dextrose/Sodium Chloride 1,000 mls @ 125 mls/hr 10/22/21 08:42 10/22/21 08:57 D5w And 1/2nss IV 11/21/21 08:41 125 mls/hr .Q8H MAEVE Administration Piperacillin Sod/Tazobactam 115 mls @ 28.75 mls/hr 10/22/21 10:00 10/22/21 09:45 Sod 3.375 gm/ Dextrose IV 11/01/21 08:41 28.8 mls/hr Q8H MAEVE Administration Protocol Multivitamins 1 tab 10/22/21 09:00 10/22/21 10:11 Multivitamin Tab PO 11/21/21 08:59 1 tab QAM MAEVE Administration Oxycodone/Acetaminophen 1 tab 10/22/21 08:42 10/22/21 08:57 Oxycodone/Acetaminophen 5mg/325mg Tab PO 11/05/21 08:41 1 tab Q4H PRN Administration pain Rosuvastatin Calcium 5 mg 10/22/21 09:00 10/22/21 09:45 Rosuvastatin Calcium 5 Mg Tab PO 11/21/21 08:59 5 mg DAILY MAEVE Administration Past Medical History Medical History (Updated 10/22/21 @ 12:24 by Kadeem Carrillo DO) First degree AV block Grade II diastolic dysfunction HTN (hypertension) Hyperlipidemia Kidney stones Lumbar spinal stenosis Past Family History Family History Father Myocardial infarction, Onset Age: 65 Hx of CABG Brother Myocardial infarction Mother Myocardial infarction, Onset Age: 72 Past Surgical History Surgical History History of back surgery x 2 History of carpal tunnel release History of tonsillectomy and adenoidectomy Social History Smoking Status: Never smoker Hx Alcohol Use: No Hx Substance Use: No Physical Exam Vital Signs Last Vital Signs Temp 98.8 F 10/22/21 11:40 Pulse 82 10/22/21 11:40 Resp 20 10/22/21 11:40 BP 140/68 10/22/21 11:40 Pulse Ox 95 10/22/21 11:40 Testing Laboratory Results 10/22/21 05:25 10/22/21 07:00 PT 10.4 Seconds (9.0-12.0) 10/22/21 07:00 INR 1.0 (0.9-1.1) 10/22/21 07:00 APTT 27.0 Seconds (21.0-31.0) 10/22/21 07:00 Laboratory Tests 10/22/21 05:07 SARS-CoV-2, RNA, NAAT NEGATIVE Electrocardiogram Date: 10/22/21 Normal sinus rhythm, rate 86 bpm Normal ECG When compared with ECG of 16-OCT-2021 16:37, No significant change was found Confirmed by Beltran Huerta ([id number]) on 10/22/2021 11:54:04 AM Chest X-Ray Date: 10/22/21 IMPRESSION: 1. No acute cardiopulmonary findings. 2. Mild elevation of the right hemidiaphragm. Echocardiogram Date: 01/12/20 Small LV chamber size with mild concentric LVH, sigmoid appearing septum Normal LV systolic function without regional wall motion abnormality, EF 60-65% Grade 2 diastolic dysfunction RV cavity size is normal. Normal RV systolic function by TAPSE. AV sclerosis mild, without significant AV stenosis Mild MR Cardiac Catheterization Date: 01/11/20 Summary: 1. Acute IN 2. 80 to 90% proximal LAD, 100% acute distal LAD occlusion 3. Severe multi-vessel non-culprit coronary artery disease - 70% proximal ramus - 99% subtotal distal RCA occlusion. PDA/PLBs fill via left to right and right to right collaterals. 4. Normal intracardiac filling pressure 5. Successful PCI of proximal LAD (3.5 x 15 mm Kevin; post-dilated with 3.75 NC) and distal LAD (2.5 x 18 mm Champion). 6. Successful PCI of proximal to mid ramus with single drug-eluting stent (2.5 x 26 mm Kevin; postdilated with 2.75 NC). Recommendations: Admit to ICU for continued monitoring Loaded with ticagrelor 180 mg in Director Of Outpatient Services Continue dual-antiplatelet therapy for at least 1 year. Trend troponins until peak, Check Echo Uptitrate beta-myriam/ROZINA as BP allows High-dose statin Consult cardiac Rehab Plan for medical management of severe, chronic, well collateralized RCA disease.
[2021-10-22] MEDS ORDERED: LIDOCAINE 2% 2 ML VIAL/AMP(20MG/ML) INFIL ONE (12:57)
[2021-10-22] MEDS ORDERED: ROCURONIUM BROMIDE 10 MG/ML 5 ML VIAL IV ONE (12:57)
[2021-10-22] MEDS ORDERED: PROPOFOL IV EMULSION 10 MG/ML 20 ML VIAL IV ONE (12:57)
[2021-10-22] MEDS ORDERED: fentaNYL citrate 100 MCG/2 ML VIAL ONE (12:57)
[2021-10-22] MEDS ORDERED: BUPIVACAINE 0.5 % 5 MG/1 ML MPF 30ML VIAL ONE (13:33)
[2021-10-22] MEDS ORDERED: HYDROmorphone INJ 1 MG/ML SYRINGE IV PRN (13:48)
[2021-10-22] MEDS ORDERED: PHENYLEPHRINE 100MCG/ML 5ML SYR IV PRN (13:48)
[2021-10-22] MEDS ORDERED: ATROPINE SULFATE 0.1 MG/ML 10ML SYR IV PRN (13:48)
[2021-10-22] MEDS ORDERED: MEPERIDINE HCL 25 MG/ML CARP/VIAL IV PRN (13:48)
[2021-10-22] MEDS ORDERED: LABETALOL HCL IV 5 MG/ML 20ML IV PRN (13:48)
[2021-10-22] MEDS ORDERED: ePHEDrine sulfate 50 MG/ML AMP IV PRN (13:48)
[2021-10-22] MEDS ORDERED: GLYCOPYRROLATE 0.2 MG/ML VIAL ONE (14:28)
[2021-10-22] MEDS ORDERED: ONDANSETRON INJ 2 MG/ML 2 ML VIAL ONE (14:51)
[2021-10-22] MEDS ORDERED: NEOSTIGMINE METHYLSULFATE 1 MG/ML 10ML VIAL ONE (14:51)
--- NOTE | 2021-10-22 14:54 | Operative Report ---
PG Post Operative Report Pre & Post Diagnosis Operation Date: 10/22/21 13:50 Pre-Op Diagnosis: Acute Cholecystitis Post-Op Diagnosis: Acute gangrenous cholecystitis I identified the patient and participated in the time-out.: Yes Procedure Operation Date: 10/22/21 13:50 Actual Procedures p Laparoscopic Cholecystectomy(Not Applicable) - Alistair Cody DO, FACS Surgeon Alistair Cody DO, FACS Fish Farmer Vivi Sifuentes Estimated Blood Loss 25 Findings Consistent with Post-Op Diagnosis Acute gangrenous cholecystitis. Omental adhesions taken down bluntly. Gallbladder aspirated with laparoscopic needle to facilitate retraction. Critical view of safety obtained, cystic duct and artery doubly clipped and divided. Hemostasis achieved with cautery. Specimens Gallbladder Anesthesia Type General Complications none Disposition Accompanied Patient To Recovery: No Disposition: Recovery Room Indications 76-year-old male admitted with acute cholecystitis, plan for laparoscopic cholecystectomy with possible cholangiogram. The risks of the procedure were discussed, all questions were answered, and the patient agreed to proceed with surgery as planned. Description of Procedure The patient was properly identified, consented, and taken to the operating room where he was placed in the supine position. General endotracheal anesthesia was induced. SCDs and a safety belt were placed. Preoperative antibiotics were administered. The patient's abdomen was prepped and draped in the standard sterile fashion. A surgical timeout was performed and all parties were in agreement that this was the correct patient and procedure to be performed and we continued as planned. An incision was made superior and to the left of the umbilicus overlying the rectus muscle and the Veress needle was inserted. Saline drop test confirmed entry into the peritoneum. The abdomen was insufflated with carbon dioxide which the patient tolerated without incident. The abdomen was then entered using the Optiview technique and a 5 mm trocar. The laparoscope was inserted and no damage from initial trocar or Veress needle placement was noted, no gross abnormalities were noted within the 4 quadrants of the abdomen. An 11 mm port was placed in the subxiphoid position and two 5 mm ports were then placed in the right subcostal position. The patient was placed in reverse Trendelenburg position and rotated towards the left. The gallbladder was acutely inflamed. There were dense omental adhesions to the dome of the gallbladder which were taken down with blunt dissection. The visualized portion of the gallbladder showed signs of acute gangrenous cholecystitis. The gallbladder was aspirated with a laparoscopic needle in order to facilitate retraction. The dome of the gallbladder was retracted towards the left upper quadrant and the infundibulum was retracted toward the right lower quadrant revealing Calot's triangle. Peritoneal attachments were taken down with electrocautery and blunt dissection. The cystic duct and artery were circumferentially dissected. A window of safety was obtained showing the cystic duct entering the gallbladder with no aberrant structures noted. The cystic duct and artery were doubly clipped and divided. The gallbladder was then lifted off the gallbladder fossa with electrocautery. The gallbladder fossa had oozing which was controlled with electrocautery. Hemostasis was found to be good. The gallbladder was placed in an Endo Catch bag and removed through the subxiphoid port site. The right upper quadrant was irrigated and hemostasis was found to be good. 5 mm trochars were removed under direct visualization and the abdomen was allowed to collapse. The subxiphoid port site fascia was closed with 0 Vicryl suture utilizing the Russell-Sanket closure device. The wound was irrigated, and the skin of all ports was closed with 4-0 Monocryl subcuticular sutures. Dermabond was placed over the wounds. The patient was extubated in the operating room and taken to the PACU where he recovered without apparent incident. All sponge, instrument and needle counts were correct at the conclusion of the procedure. The patient tolerated the procedure well. The physician's electrical assistant was present and scrubbed for the entirety of the case and was essential in positioning the patient, prepping and draping, retraction and exposure, driving the laparoscope, removal of the gallbladder, closure the incisions, and placement of the dressings. I attest to the content of the Intraoperative Record and any orders documented therein. Any exceptions are noted below.
[2021-10-22] MEDS: fentaNYL citrate 100 MCG/2 ML VIAL IV PRN ×3 (15:28→15:43)
--- NOTE | 2021-10-22 15:48 | Anesthesiology Progress Note ---
Date of Service October 22, 2021 Anesthesia Post Procedure Vital Signs Vital Signs: Temp Pulse Pulse Resp BP BP Pulse Ox 10/22/21 15:35 77 23 151/57 H 98 10/22/21 15:25 77 11 L 132/105 H 100 10/22/21 15:15 68 21 155/68 H 100 10/22/21 15:06 99.5 F 65 20 167/70 H 100 10/22/21 13:00 100.0 F H 101 H 18 169/73 H 94 10/22/21 12:00 86 20 147/73 H 96 10/22/21 11:40 98.8 F 82 20 140/68 95 10/22/21 10:13 93 H 16 119/64 96 10/22/21 09:04 100 H 20 160/72 H 98 10/22/21 08:30 93 H 16 156/70 H 94 10/22/21 07:00 93 H 17 140/78 97 10/22/21 06:30 94 H 18 161/78 H 95 10/22/21 06:11 93 H 20 98 10/22/21 06:09 91 H 18 180/74 H 99 10/22/21 04:49 97.5 F L 88 16 147/78 H 100 Pain Intensity Right Lower Abdomen: Pain Intensity: 6 Transfer of Care Handoff Completed per policy Notes Mental Status: alert / awake / arousable and participated in evaluation Patient Amnestic to Procedure: Yes Nausea / Vomiting: adequately controlled Pain: adequately controlled Airway Patency, RR, SpO2: stable & adequate BP & HR: stable & adequate Hydration State: stable & adequate Anesthetic Complications: no major complications apparent and Pt Satisfied with anesthetic care
--- NOTE | 2021-10-22 16:44 | Hospitalist Progress Note ---
Date of Service October 22, 2021 Assessment & Plan (1) Acute gangrenous cholecystitis: Plan: Acute gangrenous cholecystitis Gall Bladder USD:Cholelithiasis and mild gallbladder distention. No gallbladder wall thickening or sonographic Lee sign. Acute cholecystitis cannot be excluded. A hepatobiliary scan could be obtained as indicated. No biliary ductal dilatation S/P Laparoscopic Cholecystectomy by Dr. Cody POD #0 Continue IV fluids, Zosyn Pain control Appreciate surgery input H/O Coronary artery disease S/P stents Continue aspirin, statin. Chronic diastolic dysfunction Monitor volume status Not on diuretics at home Hypertension Resume losartan as able IV hydralazine p.r.n. Hyperlipidemia on statin Balance disorder Has issues for last 14yrs as per the patient Fall precautions PT/OT DVT Px: SCDs for now Admission and Anticipated Discharge Date Admission Date: October 22, 2021 Subjective Patient is seen and examined at bedside States having right lower quadrant abdominal pain Plan for laparoscopic cholecystectomy today Denies any chest pain, shortness of breath, dizziness, nausea Offers no other complaints Review of Systems Review of Systems: All systems reviewed & are unremarkable except as noted in Subjective Physical Exam Physical Exam: Physical Exam: Vitals signs as noted above General Appearance:Moderately built and nourished, no apparent distress Head: normocephalic, Atraumatic Eyes: normal inspection, EOMI Neck: supple, Trachea midline Respiratory/Chest: Normal breath sounds, CTA, No accessory muscle use Cardiovascular: S1, S2, No murmur Abdomen/GI:Soft, RLQ tender, Bowel sounds present Extremities/Musculoskeletal:normal inspection, no edema Neurologic/Psych:AAOX3, grossly no focal neurological deficits Skin: normal color, warm Results & Data Results & Data ([facility]) Vital Signs (Past 12 Hours) Vital Signs Temp Pulse Pulse Resp BP BP Pulse Ox 10/22/21 15:55 37.0 C 81 23 138/49 L 94 10/22/21 15:45 37.0 C 78 20 124/55 L 95 10/22/21 15:35 77 23 151/57 H 98 10/22/21 15:25 77 11 L 132/105 H 100 10/22/21 15:15 68 21 155/68 H 100 10/22/21 15:06 37.5 C 65 20 167/70 H 100 10/22/21 13:00 37.8 C H 101 H 18 169/73 H 94 10/22/21 12:00 86 20 147/73 H 96 10/22/21 11:40 37.1 C 82 20 140/68 95 10/22/21 10:13 93 H 16 119/64 96 10/22/21 09:04 100 H 20 160/72 H 98 10/22/21 08:30 93 H 16 156/70 H 94 10/22/21 07:00 93 H 17 140/78 97 10/22/21 06:30 94 H 18 161/78 H 95 10/22/21 06:11 93 H 20 98 10/22/21 06:09 91 H 18 180/74 H 99 10/22/21 04:49 36.4 C L 88 16 147/78 H 100 Laboratory Results Short CBC 10/22/21 Range/Units 05:25 WBC 17.17 H (4.8-10.8) K/uL Hgb 14.3 (14.0-18.0) g/dL Hct 42.1 (42-52) % Plt Count 359 (130-400) K/uL BMP 10/22/21 10/22/21 05:25 07:00 Sodium Cancelled 134 L Potassium Cancelled 4.3 Chloride Cancelled 101 Carbon Dioxide Cancelled 23 BUN Cancelled 18 Creatinine Cancelled 0.96 Glucose Cancelled 151 H Calcium Cancelled 9.1 Cardiac Enzymes 10/22/21 10/22/21 Range/Units 05:25 07:00 Troponin I Cancelled < 0.03 Liver Function 10/22/21 10/22/21 Range/Units 05:25 07:00 Total Bilirubin Cancelled 1.1 H AST Cancelled 13 ALT Cancelled 11 Alkaline Phosphatase Cancelled 71 Albumin Cancelled 4.0
[2021-10-22] MEDS ORDERED: HYDROmorphone INJ 0.5 MG/0.5 ML SYR IV PRN (17:46)
[2021-10-22] MEDS ORDERED: oxyCODONE/ACETAMINOPHEN 5mg/325mg TAB PO PRN (17:46)
[2021-10-23] MEDS: PIPERACILLIN/TAZOBACTAM 3.375 GM in DEXTROSE 5% 100 ML IV SCH ×3 (01:48→17:55)
[2021-10-23] MEDS: HYDROmorphone INJ 0.5 MG/0.5 ML SYR IV PRN (01:54)
[2021-10-23 06:35] LABS: Basophils # (auto) 0.01 K/uL (0-0.2); Basophils % (auto) 0.1 %; Hematocrit (blood only) 34.2 % (42-52); Hemoglobin 11.4 g/dL (14.0-18.0); Immature Granulocytes # (auto) 0.06 K/uL (0.00-0.02); Immature Granulocytes % (auto) 0.4 %; Lymphocytes % (auto) 8.8 %; Mean Corpuscular Hemoglobin 32.4 pg (25-34); Mean Corpuscular Hgb Conc 33.3 g/dL (32-36); Mean Corpuscular Volume 97.2 fL (80-100); Mean Platelet Volume 10.6 fL (7.4-10.4); Monocytes # (auto) 1.61 K/uL (0.11-0.59); Monocytes % (auto) 11.8 %; Neutrophils # (auto) 10.79 K/uL (1.4-6.5); Neutrophils % (auto) 78.9 %; Platelet Count 251 K/uL (130-400); RDW Coefficient of Variation 12.6 % (11.5-14.5); RDW Standard Deviation 44.5 fL (36.4-46.3); Red Blood Count 3.52 M/uL (4.7-6.1); White Blood Count 13.67 K/uL (4.8-10.8)
[2021-10-23 06:36] LABS: Albumin Level 3.3 gm/dl (3.4-5.0); BUN Creatinine Ratio 18.6 (10-20); Bilirubin Direct 0.5 mg/dl (0-0.2); Bilirubin,Total 1.7 mg/dl (0.2-1.0); Calcium 8.2 mg/dl (8.5-10.1); Creatinine Clr Calc Pharmacy 41.3 ml/min; Est GFR (African American) 55.8 ml/min; Est GFR (Non-African American) 48.1 ml/min; Magnesium 1.8 mg/dl (1.7-2.4); Potassium 4.6 mmol/L (3.5-5.1); Total Protein 5.9 gm/dl (6.0-8.3)
--- NOTE | 2021-10-23 08:32 | Surgery Progress Note ---
Date of Service October 23, 2021 Assessment & Plan (1) Acute gangrenous cholecystitis: Plan: POD#1 laparoscopic cholecystectomy for gangrenous cholecystitis WBC 13 (17). Hbg noted 11.4 (14), will continue to monitor. Slight jump in Tb: 1.7 (1.1) Patient feeling clinically well. VSS. Abdomen soft, incisions c/d/i May advance diet as tolerates May need gonzales if unable to void Out of bed as tolerates Admission and Anticipated Discharge Date Admission Date: October 22, 2021 Supervising Physician Co-Signing Physician Notes Patient seen and examined, labs reviewed, agree with above. POD #1 laparoscopic cholecystectomy for acute gangrenous cholecystitis. Overall doing well, feels much better than prior to surgery. Tolerated clears. Abdomen soft, nontender. Incisions with Dermabond with no evidence of infection. WBC normal, slight drop in H&H, will monitor. Total slightly bilirubin elevated but remainder of LFTs normal. We will advance diet as tolerated, repeat H&H in the morning, likely discharge tomorrow. Will likely keep on a few days of antibiotics. Subjective Patient feeling well, reports feeling much better than on admission. He denies nausea/vomiting. Is just trying out clear liquids this AM. Walked some yesterday. Pain controlled. Required straight cath due to urinary retention. Physical Exam Physical Exam: awake/alert Gastrointestinal (Abdomen): Inspection/Auscultation: + abdominal surgical incision (c/d/i no signs of infection); abdomen not distended Percuss ion/Palpation: + abdomen tender (mild matthew incisional discomfort to palpation) and abdomen soft Results & Data ([facility]) Vital Signs (Past 12 Hours) Vital Signs Temp Pulse Resp BP BP Pulse Ox 10/23/21 07:08 37.1 C 91 H 16 113/66 94 10/23/21 03:06 36.9 C 88 18 106/61 92 10/23/21 00:22 36.5 C 86 18 109/63 94 PG Care Time/CCT Total # of Minutes Spent Total Time Spent with Patient: Total time spent is greater than 50% in coordination of care (as documented) at patient's floor/unit and/or counseling patient: Coding Level of Care Code None Diagnoses Acute gangrenous cholecystitis K81.0
[2021-10-23] MEDS: ASPIRIN 81 MG ECTAB PO SCH (09:26)
[2021-10-23] MEDS: MULTIVITAMIN TAB PO SCH (09:27)
[2021-10-23] MEDS: ROSUVASTATIN CALCIUM 5 MG TAB PO SCH (09:29)
--- NOTE | 2021-10-23 13:15 | Hospitalist Progress Note ---
Date of Service October 23, 2021 Assessment & Plan (1) Acute gangrenous cholecystitis: Plan: Acute gangrenous cholecystitis Gall Bladder USD: Cholelithiasis and mild gallbladder distention. No gallbladder wall thickening or sonographic Lee sign. Acute cholecystitis cannot be excluded. A hepatobiliary scan could be obtained as indicated. No biliary ductal dilatation POD #1 s/p Laparoscopic Cholecystectomy by Dr. Cody Tbili slightly elevated at 1.7 (1.1 yesterday) Continue IV fluids, Zosyn Pain control Advance diet, OOB as tolerated per surgery. Possible discharge home tomorrow Acute kidney injury Likely pre-renal in setting of infection, surgery yesterday Cr 1.4 up from baseline ~1-1.1 Continue IV fluids, clear liquids. Repeat BMP in AM H/O Coronary artery disease S/P stents Continue aspirin, statin Chronic diastolic dysfunction Monitor volume status Not on diuretics at home Hypertension Holding losartan in setting of ADELE IV hydralazine p.r.n. Hyperlipidemia on statin Balance disorder Has issues for last 14yrs as per the patient Fall precautions PT/OT DVT Px: SCDs for now Admission and Anticipated Discharge Date Admission Date: October 22, 2021 Supervising Physician Co-Signing Physician Notes Patient is seen and examined at bedside. Denies any significant pain at surgical site. Also denies any nausea, vomiting, dizziness, chest pain, shortness of breath. Tolerating clear liquid diet. Offers no other complaints. On exam patient is moderately built and nourished, no apparent distress, normocephalic atraumatic, EOMI, normal breath sounds, clear to auscultation, S1- S2, no murmur, no pedal edema, abdomen soft, nontender, + surgical scars, normal bowel sounds, alert, awake, oriented, grossly no focal deficits. Patient is being managed for acute gangrenous cholecystitis S/P laparoscopic cholecystectomy, continue IV fluids, Zosyn. Advance diet as tolerated. Appreciate surgery input. Monitor renal function. I personally reviewed the record. Patient is interviewed and examined at bedside. Patient's care is coordinated with Viki Guevara PA-C. Please refer to the documentation above for details of patient's presentation and for discussion of other issues. Subjective Seen and examined [id number]. Much improved post-operatively but has mild discomfort. Tolerating clears. No F/C, CP, SOB, nausea, vomiting, dysuria, diarrhea or constipation. Required straight cathing due to urinary retention. RN to bladder scan. Ambulating without issue. Review of Systems Review of Systems: At least ten systems reviewed and negative except as noted in the HPI. Physical Exam Physical Exam: Gen: WD/WN, NAD, lying in bed, A&Ox3 HEENT: Normocephalic, atraumatic, conjunctivae moist, sclerae anicteric, mucous membranes moist Lung: Clear to Auscultation bilaterally, no wheezes/rales/rhonchi Heart: Regular rate, regular rhythm, no murmurs, rubs, or gallops Abdomen: Laparoscopic incisions c/d/i, soft, +TTP. +BS x 4 Extremities: no edema Skin: Warm, no rash Results & Data Results & Data ([facility]) Vital Signs (Past 12 Hours) Vital Signs Temp Pulse Resp BP BP Pulse Ox 10/23/21 07:08 37.1 C 91 H 16 113/66 94 10/23/21 03:06 36.9 C 88 18 106/61 92 Laboratory Results Short CBC 10/23/21 Range/Units 05:40 WBC 13.67 H (4.8-10.8) K/uL Hgb 11.4 L (14.0-18.0) g/dL Hct 34.2 L (42-52) % Plt Count 251 (130-400) K/uL BMP 10/23/21 05:40 Sodium 132 L Potassium 4.6 Chloride 100 Carbon Dioxide 26 BUN 26 H Creatinine 1.40 D Glucose 157 H Calcium 8.2 L Liver Function 10/23/21 Range/Units 05:40 Total Bilirubin 1.7 H D (0.2-1.0) mg/dl Direct Bilirubin 0.5 H (0-0.2) mg/dl AST 51 H (13-39) U/L ALT 49 (7-52) U/L Alkaline Phosphatase 60 (34-104) U/L Albumin 3.3 L (3.4-5.0) gm/dl Diagnostic Findings Gallbladder Ultrasound 10/22/21 04:57 US gallbladder CLINICAL HISTORY: Right upper quadrant abdominal pain. COMPARISON STUDY: CT of the abdomen and pelvis and right upper quadrant ultrasound October 16, 2021. FINDINGS: No hepatic lesions are identified. There is no biliary ductal dilatation. Common bile duct measures 3 mm in caliber. Gallstones and sludge within the gallbladder are present. No sonographic Lee sign was elicited. Gallbladder is mildly distended. There is no pericholecystic fluid. No gallbladder wall thickening is present. There is no right hydronephrosis. Pancreas is obscured by overlying bowel gas. IMPRESSION: 1. Cholelithiasis and mild gallbladder distention. No gallbladder wall thickening or sonographic Lee sign. Acute cholecystitis cannot be excluded. A hepatobiliary scan could be obtained as indicated. 2. No biliary ductal dilatation. ACT 112: Negative or not required by law. Electronically signed by: Kahlil Valencia M.D. 10/22/2021 6:44 AM Chest X-Ray 10/22/21 06:59 XR chest 1V portable CLINICAL HISTORY: Preoperative evaluation. COMPARISON STUDY: Chest radiograph January 23, 2020. FINDINGS: There is mild elevation of the right hemidiaphragm. No pneumothorax or pleural effusion is noted. No consolidation or evidence for pulmonary edema. Cardiac size is at the upper limits of normal. IMPRESSION: 1. No acute cardiopulmonary findings. 2. Mild elevation of the right hemidiaphragm. ACT 112: Negative or not required by law. Electronically signed by: Kahlil Valencia M.D. 10/22/2021 7:36 AM
[2021-10-23] MEDS: D5W AND 1/2NSS 1,000 ML IV SCH (13:20)
[2021-10-23] MEDS ORDERED: SODIUM CHLORIDE 0.9% 1000ML 1,000 ML IV SCH (14:00)
[2021-10-23] MEDS ORDERED: ALUMINUM/MAGNESIUM SUSP 30 ML UDC PO PRN (16:27)
[2021-10-23] MEDS ORDERED: ALUMINUM/MAGNESIUM SUSP 30 ML UDC PO STA (16:27)
[2021-10-23] MEDS ORDERED: PANTOprazole 40 MG TAB PO SCH (16:30)
[2021-10-23] MEDS: oxyCODONE/ACETAMINOPHEN 5mg/325mg TAB PO PRN ×2 (21:04)
[2021-10-24] MEDS: PIPERACILLIN/TAZOBACTAM 3.375 GM in DEXTROSE 5% 100 ML IV SCH ×2 (02:14→10:17)
[2021-10-24] MEDS: oxyCODONE/ACETAMINOPHEN 5mg/325mg TAB PO PRN (06:46)
[2021-10-24 07:46] LABS: Hematocrit (blood only) 29.3 % (42-52); Hemoglobin 9.9 g/dL (14.0-18.0); Mean Corpuscular Hemoglobin 32.1 pg (25-34); Mean Corpuscular Hgb Conc 33.8 g/dL (32-36); Mean Corpuscular Volume 95.1 fL (80-100); Mean Platelet Volume 10.2 fL (7.4-10.4); Platelet Count 241 K/uL (130-400); RDW Coefficient of Variation 12.3 % (11.5-14.5); RDW Standard Deviation 42.8 fL (36.4-46.3); Red Blood Count 3.08 M/uL (4.7-6.1); White Blood Count 12.32 K/uL (4.8-10.8)
[2021-10-24 08:07] LABS: Albumin Globulin Ratio 1.1 (0.9-2); Albumin Level 3.1 gm/dl (3.4-5.0); BUN Creatinine Ratio 22.3 (10-20); Bilirubin,Total 1.2 mg/dl (0.2-1.0); Calcium 8.2 mg/dl (8.5-10.1); Creatinine Clr Calc Pharmacy 51.6 ml/min; Globulin 2.9 gm/dl (2.5-4.0)
[2021-10-24] MEDS: MULTIVITAMIN TAB PO SCH (08:58)
[2021-10-24] MEDS: ROSUVASTATIN CALCIUM 5 MG TAB PO SCH (08:58)
[2021-10-24] MEDS: ASPIRIN 81 MG ECTAB PO SCH (08:58)
--- NOTE | 2021-10-24 09:33 | Surgery Progress Note ---
Date of Service October 24, 2021 Assessment & Plan (1) Acute gangrenous cholecystitis: Plan: POD#2 laparoscopic cholecystectomy for gangrenous cholecystitis WBC 12.3, Hbg 9.9 (11.4), Tb downtrending 1.2 (1.7), other LFTs unremarkable Patient clinically feeling well. Tolerating a regular diet. Incisions c/d/i We will recheck Hbg at 11, if stable patient may be discharged from our standpoint Will send out with 5 more days po abx Dispo instructions reviewed, follow up with Dr. Cody within 2 weeks Admission and Anticipated Discharge Date Admission Date: October 22, 2021 Supervising Physician Co-Signing Physician Notes Patient seen and examined, labs reviewed, agree with above. POD #2 laparoscopic cholecystectomy for gangrenous cholecystitis. Tolerating diet, feeling significantly better than prior to surgery. Abdomen soft, nontender, incisions without infection. WBC normal. H&H down slightly. We will repeat H&H, if stable may be discharged home. Complete course of antibiotics. Activity restrictions reviewed, return precautions given. Follow-up in 2 weeks in general surgery clinic. Dr. Morton covering over the weekend. Subjective Patient says he is feeling good. Denies abdominal pain, nausea/vomiting. Tolerating a regular diet. Physical Exam Physical Exam: awake/alert Gastrointestinal (Abdomen): Inspection/Auscultation: + abdominal surgical incision (c/d/i with skin glue, no signs of infection) Percussion/Palpation: abdomen soft; abdomen nontender Results & Data ([facility]) Vital Signs (Past 12 Hours) Vital Signs Temp Pulse Resp BP Pulse Ox 10/24/21 07:57 37.0 C 90 20 111/62 92 10/23/21 22:58 37.1 C 87 17 108/61 93 PG Care Time/CCT Total # of Minutes Spent Total Time Spent with Patient: Total time spent is greater than 50% in coordination of care (as documented) at patient's floor/unit and/or counseling patient: Coding Level of Care Code None Diagnoses Acute gangrenous cholecystitis K81.0
[2021-10-24 10:58] LABS: Basophils # (auto) 0.02 K/uL (0-0.2); Basophils % (auto) 0.1 %; Eosinophils # (auto) 0.08 K/uL (0-0.5); Eosinophils % (auto) 0.5 %; Hematocrit (blood only) 31.5 % (42-52); Hemoglobin 10.5 g/dL (14.0-18.0); Immature Granulocytes # (auto) 0.05 K/uL (0.00-0.02); Immature Granulocytes % (auto) 0.3 %; Lymphocytes # (auto) 1.76 K/uL (1.2-3.4); Lymphocytes % (auto) 12.1 %; Mean Corpuscular Hemoglobin 32.1 pg (25-34); Mean Corpuscular Hgb Conc 33.3 g/dL (32-36); Mean Corpuscular Volume 96.3 fL (80-100); Mean Platelet Volume 10.1 fL (7.4-10.4); Monocytes # (auto) 1.44 K/uL (0.11-0.59); Monocytes % (auto) 9.9 %; Neutrophils # (auto) 11.23 K/uL (1.4-6.5); Neutrophils % (auto) 77.1 %; Platelet Count 262 K/uL (130-400); RDW Coefficient of Variation 12.3 % (11.5-14.5); RDW Standard Deviation 43.7 fL (36.4-46.3); Red Blood Count 3.27 M/uL (4.7-6.1); White Blood Count 14.58 K/uL (4.8-10.8)
--- NOTE | 2021-10-24 13:14 | Discharge Summary ---
Date of Service October 24, 2021 Admission HPI Per Admitting Provider This 76-year-old male with past medical history significant for hyperlipidemia, chronic rhinitis, first-degree AV block, hypertension, CAD, sciatica, balance disorder, spinal stenosis, comes because of abdominal pain. The patient was in the ER on 10/16/2021 with abdominal pain. The pain started after eating a Burger. At that time, CT of abdomen and pelvis was done, which showed distended gallbladder containing calcified gallstones, mild pericholecystic stranding and fluid suspicious for acute cholecystitis and gallbladder ultrasound was also done, which was showing cholelithiasis with no ultrasound evidence for acute cholecystitis and the patient did fine and was discharged to follow up with General Surgery. He saw General Surgery on 10/20/2021 and there is a plan for elective surgery to be done on 11/09/2021 as per the patient, but the pain is not getting better, the last 2 days got worse. He is not able to eat anything except for liquids. Pain is located in the right upper quadrant and radiating to his middle of abdomen, very severe in nature, also has some nausea, which prompted her to come to the ER today. He had an gallbladder ultrasound done today showing same cholelithiasis and mild gallbladder distention acute Cholecystitis cannot be excluded. As the patient has persistent symptoms, we are admitting the patient for possible surgery during the hospital stay. The patient is afebrile. Has constipation. Denies any blood in stools or black stools. Normal bladder movements. No chest pain, no shortness of breath, no cough, no headache, no blurred visions, no earache, no runny nose, no sore throat, hemodynamically stable. After pain medication in the ER, the pain is better. Admission Exam Per Admitting Provider GENERAL: The patient is of moderate build, not in acute distress. VITAL SIGNS: Temperature 36.4, pulse 94, respiratory rate 18, blood pressure 161/78, oxygen 95% on room air. HEENT: Pupils equal, round and reactive to light. Oral mucosa moist. NECK: No JVD. No neck masses. CARDIOVASCULAR: S1 and S2 heard. Regular rate and rhythm. No murmur, no gallop. RESPIRATORY SYSTEM: Normal AP diameter. No accessory muscle use. No wheezing, no crackles. ABDOMEN: Soft, bowel sounds present. Tenderness in the right upper quadrant region with mild guarding. No rigidity, no distention. CENTRAL NERVOUS SYSTEM: Cranial nerves II-XII grossly intact, nonfocal. EXTREMITIES: No edema, no erythema. Principal Diagnosis Acute gangrenous cholecystitis Discharge Exam Gen: WD/WN, NAD, lying in bed, A&Ox3 HEENT: Normocephalic, atraumatic, conjunctivae moist, sclerae anicteric, mucous membranes moist Lung: Clear to Auscultation bilaterally, no wheezes/rales/rhonchi Heart: Regular rate, regular rhythm, no murmurs, rubs, or gallops Abdomen: Laparoscopic incisions c/d/i, soft, mildly tender around surgical site, non-distended. +BS x 4 Extremities: no edema Skin: Warm, no rash Discharge Data Allergies Allergy/AdvReac Type Severity Reaction Status Date / Time No Known Allergies Allergy Verified 10/16/21 19:10 Consultations 10/22/21 06:22 ED Decision to Admit Stat 10/22/21 08:42 Consult General Surgery Routine Procedures Performed Operation Date: 10/22/21 13:50 Actual Procedures p Laparoscopic Cholecystectomy(Not Applicable) - Alistair Cody, , FACS Ordered Studies 10/22/21 04:57 US gallbladder Urgent Hospital Course (1) Acute gangrenous cholecystitis: (2) Biliary colic: (3) Acute kidney injury: (4) Coronary artery disease: (5) HTN (hypertension): (6) Hyperlipidemia: This is a 76-year-old male with PMH of hyperlipidemia, chronic rhinitis, first- degree AV block, hypertension, CAD, sciatica, balance disorder, spinal stenosis, comes because of abdominal pain and was found to have acute gangrenous cholecystitis. Underwent laparoscopic Cholecystectomy by Dr. Cody on . Has been feeling well post-operatively and tolerated regular diet this morning without issue. Has been on IV Zosyn and will be transitioned to Augmentin for an additional 5 days of antibiotics at discharge. Had post-op acute kidney injury that has resolved with IV fluids. Instructed to follow up in general surgery clinic within 2 weeks. Hemodynamically stable at time of discharge home. Total Time Total Time Spent Total Time Spent (In Minutes): 40 Discharge Plan Discharge Items Patient Disposition: Home - Self-Care Reason For Visit: ABD PAIN Discharge Diagnosis: acute gangrenous cholecystitis Activity: Per Instructions section Lifting: No more than 10 pounds Bathing Comment: may shower; no soaking in tubs/pools Exercise/Sports: Wait until after follow-up appointment Driving/Machine Use: no driving while taking narcotics for pain Non-emergency contact: Primary Care Provider and Surgeon Call non-emergency contact if: you have any medication questions, your symptoms worsen, your pain is not controlled, your pain is concerning for you, you have a fever, your temperature is above 101.5, your wound has increased redness, your wound has increased drainage and your wound pain has increased Follow-up/Referrals: Alistair Cody DO, YOAN [Physician] - 11/06/21 9:45 am (Please call to schedule follow up in clinic within 2 weeks) Yemi Lowery MD [Primary Care Provider] - (Date & Time 10/27/2021 11:20 AM Provider Yemi Lowery MD [facility] ) Diet: Heart Healthy Addtl Attending Provider Instructions: You were admitted with abdominal pain and found to have acute gangrenous cholecystitis. Dr. Cody removed your gall bladder laparoscopically on 10/22/21. You will be sent home on 5 additional days of antibiotics. Please follow instructions from surgery as listed above. MEDICATION CHANGES: Continue Augmentin (antibiotic) course until completed. PENDING TEST RESULTS: Surgical pathology RECOMMENDATIONS FOR FOLLOW-UP: Please follow up with Dr. Lowery on 10/27/2021 at 11:20 AM Please call general surgery to schedule follow up in clinic within 2 weeks OTHER INSTRUCTIONS: Seek medical attention if you have: * temperature above 101 * chest pain or trouble breathing * abdominal pain, nausea, vomiting * diarrhea, dark stools or bloody stools * any unanswered questions or concerns Call 911 if symptoms are severe. Please take good care of yourself. Call if you have any questions or problems. You can reach a [facility] [address] hospitalist on duty at [facility] 24 hours a day by calling [phone]. [facility] Hospitalist Pending Studies at Discharge: Yes Studies:: surgical pathology Stand-Alone Forms: My [facility] [place] [employer], Smoking Cessation Medications and DC Order Prescriptions: New amoxicillin-pot clavulanate 875-125 mg tablet 1 tab PO BID Qty: 10 RF: 0 Continued aspirin 81 mg Tablet,Delayed Release (Dr/Ec) 81 mg PO QAM RF: 0 losartan 50 mg Tablet 50 mg PO DAILY RF: 0 nitroglycerin [Nitrostat] 0.4 mg Tablet, Sublingual 0.4 mg sublingual PRN PRN (Reason: chest pain) Qty: 30 RF: 0 multivitamin Tablet 1 tab PO QAM RF: 0 rosuvastatin 5 mg tablet 5 mg PO DAILY RF: 0 oxycodone-acetaminophen [Percocet] 5-325 mg tablet 1 tab PO Q4H PRN (Reason: pain) Qty: 20 RF: 0 Discharge Orders: Discharge Order (Routine); Ordered 10/24/21 Ordered By: Viki Guevara Admission Data Admit Date/Time: 10/22/21 06:50 Attending Provider: Albino Lewis Admit Provider: Terence Keating Primary Care Provider: Yemi Lowery Other Providers: Vance Morton ; Viki Guevara Other Interventions: Discharge Summary Assessment (RN) Last Done: 10/24/21 13:17 Supervising Physician Co-Signing Physician Notes Patient is seen and examined at bedside. Doing well today. No new complaints. Denies any nausea, vomiting, abd pain, dizziness, chest pain, shortness of breath.Eager to get discharged. On exam patient is moderately built and nourished, no apparent distress, normocephalic atraumatic, EOMI, normal breath sounds, clear to auscultation, S1-S2, no murmur, no pedal edema, abdomen soft, nontender, + surgical scars, normal bowel sounds, alert, awake, oriented, grossly no focal deficits. Patient is being managed for acute gangrenous cholecystitis S/P laparoscopic cholecystectomy, continue IV fluids, Zosyn. Tolerated diet. Appreciate surgery input.Plan to discarge on PO antibiotics to complete the course. Advised to follow up with PCP, Surgery upon discharge. I personally reviewed the record. Patient is interviewed and examined at bedside. Patient's care is coordinated with Viki Guevara PA-C. Please refer to the documentation above for details of patient's presentation and for discussion of other issues.
== END 2021-10-24 14:59 | disposition home or self-care (01) | DRG 418 ==
LOC: ED 04:46 → EDINP 06:50 → 3W 17:58

== ENCOUNTER 2025-03-15 14:53 | Inpatient (IN) ==
--- NOTE | 2025-03-15 15:02 | Emergency Department Note ---
Impression & Plan Stroke-like symptoms, RUE weakness ED Provider Note NAME: RED HAMEED AGE: 79 SEX: M : 1945 ARRIVES VIA: Ambulance INFORMANT: Patient, EMS ED PROVIDER(S): Ck Stallworth DO CHIEF COMPLAINT: Strokelike symptoms HPI: The patient is an 79-year-old male who presented to the emergency department for an evaluation of strokelike symptoms. The patient started having symptoms yesterday morning. He notes he was having difficulty using his right arm. The patient denies having any facial droop or difficulty speaking. He complains of bilateral lower extremity weakness as well. He denies having any neck pain or back pain. He does not take any oral anticoagulants. The patient did not come in yesterday because he thought the symptoms may resolve on their own. ROS: See above HPI for pertinent positives & negatives. A total of 10 systems reviewed and were otherwise negative. PAST MEDICAL HISTORY: See Below PAST SURGICAL HISTORY: See Below FAMILY HISTORY: See Below SOCIAL HISTORY: See Below HOME MEDICATIONS: See Below ALLERGIES: See Below VITALS: See Below PHYSICAL EXAMINATION: GENERAL: Patient is awake alert in no acute distress patient is resting comfortably and showing no signs of anxiety EYES: The conjunctivae are clear. The pupils are round and reactive. EARS, NOSE, MOUTH AND THROAT: The nose is without any evidence of any deformity. NECK: The neck is nontender and supple. RESPIRATORY: Normal respiratory effort is noted there is no evidence of wheezing rhonchi or rales CARDIOVASCULAR: Regular rate and rhythm noted there no murmurs rubs or gallops normal S1 normal S2. GASTROINTESTINAL: The abdomen is soft. Abdomen is nontender. MUSCULOSKELETAL/EXTREMITIES: There is no evidence of gross deformity full range of motion is noted in the hips and shoulders. SKIN: There is no obvious evidence of any rash. There are no petechiae, pallor or cyanosis noted. NEUROLOGIC: The patient is awake alert and oriented x 3. There is no facial droop. Speech was clear. The patient has no drift in the upper extremities but green coffee blender strength is diminished in the right hand compared to left. The patient is able to hold each leg off of the bed for greater than 5 seconds. MEDICAL DECISION MAKING: The patient is an 79-year-old male who presented to the emergency department for an evaluation of right upper extremity weakness. The patient started having strokelike symptoms yesterday. He also noticed he is having difficulty ambulating. He was found to have elevated blood pressure. He does have a history of elevated blood pressure as well as high cholesterol and coronary artery disease. The patient was ultimately not found to have any acute process on plain CT but has signs of cerebral artery disease as well as vertebral artery disease on angiography. Given the patient's presentation and physical exam as well as his radiographic findings I do feel this is likely the does have a subacute stroke. He is not a candidate for thrombolytics as his symptoms started greater than 4 and half hours ago. He is not a candidate for mechanical thrombectomy as he has no large vessel occlusion. Ultimately the patient was felt to be a good candidate for inpatient management. I discussed this with him and he was agreeable with the plan. The patient was discussed with the [facility]ist group. Triage Nursing notes reviewed. Prior medical records reviewed Vital Signs: reviewed and remarkable for elevated blood pressure. Differential diagnosis: Infection, dehydration, metabolic abnormality, hypo/hyperglycemia, electrolyte disturbance, anemia, hypoxia, cardiac sources, intracerebral event, toxicologic, neurologic, as well as other pathologies. ER treatment provided: See below Diagnostics interpreted by me: ECG: EKG was obtained in the emergency department. My interpretation is normal sinus rhythm at 72 bpm. First-degree AV block was noted. There was no ectopy. There is no acute ST segment abnormalities noted. QTc was 424 ms. Cardiac Monitoring: An order was placed for continuous cardiac monitoring. The monitor shows a rate of 71 bpm with sinus rhythm. Laboratory studies: As stated above and show below. Imaging studies: See below. Radiographic imaging was reviewed by myself Consultation(s): I discussed this case with MEIR who is on-call for the [facility] hospitalist group. Past Med/Surg History Problem List (Updated 03/15/25 @ 16:34 by Ck Stallworth DO) RUE weakness (Acute) Stroke-like symptoms (Acute) Stented coronary artery Dizziness History of myocardial infarction ST elevation myocardial infarction, status post cardiac cath with JOHNNY in mid ramus, mid and distal LAD Elevated fasting glucose Coronary artery disease Grade II diastolic dysfunction HTN (hypertension) (Chronic) Hyperlipidemia (Chronic) Medical History Acute gangrenous cholecystitis Biliary colic First degree AV block Lumbar spinal stenosis Kidney stones Surgical History Hx laparoscopic cholecystectomy (10/22/21) Laparoscopic Cholecystectomy - Alistair Cody DO, FACS 10/22/2021 Hx of cholecystectomy History of tonsillectomy and adenoidectomy History of back surgery x 2 History of carpal tunnel release Family History Father Myocardial infarction, Onset Age: 65 Hx of CABG Brother Myocardial infarction Mother Myocardial infarction, Onset Age: 72 Denies family history of Ovarian cancer Prostate cancer Breast cancer Colorectal cancer Social History Smoking Status: Never smoker Second Hand Exposure: No; Do You Dip or Chew Tobacco: No; Hx Alcohol Use: No Hx Substance Use: No Preferred Language: Scottish Communication Ability: Effective Visual Impairment: No Limitations Switch Cleaner Required: No Beliefs That Will Affect Care: None marital status: Current Living Situation: Spouse Feels Safe at Home: Yes Childhood Exposure to Second-Hand Smoke: Yes Diet: regular Dental Care, Regularly: Yes Physical Activity Frequency: Daily Seatbelt Use: sometimes Sunscreen Use: No Assistive Devices: Denture - Upper and Glasses Allergies Allergies Allergy/AdvReac Type Severity Reaction Status Date / Time No Known Allergies Allergy Verified 03/15/25 16:24 Home Meds Home Medications Medication Instructions Recorded Confirmed sildenafil 100 mg tablet 100 mg PO DAILY PRN Erectile 03/15/25 03/15/25 Dysfunction Previous Rx's Medication Instructions Recorded nitroglycerin 0.4 mg sublingual 0.4 mg sublingual PRN PRN chest 11/16/23 tablet (Nitrostat) pain #30 tabs pantoprazole 40 mg tablet,delayed 40 mg PO DAILY PRN gastric reflux 04/04/24 release #90 tabs rosuvastatin 5 mg tablet 5 mg PO DAILY #90 tabs 12/04/24 losartan 25 mg tablet 25 mg PO DAILY #90 tabs 12/08/24 aspirin 81 mg tablet,delayed 81 mg PO QAM #90 tabs 12/25/24 release rosuvastatin 10 mg tablet 10 mg PO DAILY #90 tabs 12/26/24 Results & Data (ED) Vital Signs Vital Signs - 24 hr 03/15/25 14:58 03/15/25 15:30 03/15/25 16:00 Temperature 36.7 C Temperature Source Oral Pulse Rate 75 77 71 Pulse Rate from SpO2 Sensor 77 70 Respiratory Rate 21 22 21 Respiratory Effort / Characteristics Non-Labored Spontaneous Respiratory Depth Normal Respiratory Pattern Regular Blood Pressure 207/104 H 201/106 H 146/117 H Blood Pressure Mean 138 137 132 Pulse Oximetry 98 99 98 Oxygen Delivery Method Room Air Sepsis Recent Fever Within 48 Hours No Sepsis New/Unexplained Change in Mental Status N/A Sepsis Action Taken by Nursing No Action Required Home Medications Current Medication List: was personally reviewed by me Laboratory Data Attestation: I reviewed the patient's lab results. 03/15/25 16:44 03/15/25 15:10 Lab Results 03/15/25 03/15/25 03/15/25 Range/Units 15:09 15:10 15:47 WBC Cancelled RBC Cancelled Hgb Cancelled POC Hgb 15.0 (14.0-18.0) g/dl Hct Cancelled POC Hct 44 (42-52) % MCV Cancelled MCH Cancelled MCHC Cancelled RDW Std Deviation Cancelled RDW Coeff of Charles Cancelled Plt Count Cancelled MPV Cancelled Immature Gran % (Auto) Cancelled Neut % (Auto) Cancelled Lymph % (Auto) Cancelled [place] % (Auto) Cancelled Eos % (Auto) Cancelled Baso % (Auto) Cancelled Neut # (Auto) Cancelled Lymph # (Auto) Cancelled [place] # (Auto) Cancelled Eos # (Auto) Cancelled Baso # (Auto) Cancelled Immature Gran # (Auto) Cancelled Absolute Nucleated RBC Cancelled Nucleated RBC % (auto) Cancelled Neutrophils % (Manual) Cancelled Band Neutrophils % Cancelled Lymphocytes % (Manual) Cancelled Prolymphocyte % Cancelled Reactive Lymphs % (Man) Cancelled Monocytes % (Manual) Cancelled Eosinophils % (Manual) Cancelled Basophils % (Manual) Cancelled Metamyelocytes % (Man) Cancelled Myelocytes % (Man) Cancelled Promyelocytes % (Man) Cancelled Blast Cells % (Manual) Cancelled Plasma Cell % (Manual) Cancelled Other Cells % Cancelled Nucleated RBC % Cancelled Neutrophils # (Manual) Cancelled Band Neutrophils # Cancelled Total Absolute Neuts Cancelled Lymphocytes # (Manual) Cancelled Prolymphocyte # Cancelled Reactive Lymphs # Cancelled Total Abs Lymphocytes Cancelled Monocytes # (Manual) Cancelled Eosinophils # (Manual) Cancelled Basophils # (Manual) Cancelled Metamyelocytes # (Man) Cancelled Myelocytes # (Manual) Cancelled Promyelocytes # (Man) Cancelled Blast Cells # (Man) Cancelled Plasma Cell # (Manual) Cancelled Other Cells # Cancelled Nucleated RBCs # (Man) Cancelled Hypersegmented Neuts Cancelled Hyposegmented Neuts Cancelled Hypogranular Neuts Cancelled Large Granular Lymphs Cancelled # Lrg Granular Lymphs Cancelled Hairy Cells Cancelled Smudge Cells Cancelled Toxic Granulation Cancelled Toxic Vacuolation Cancelled Dohle Bodies Cancelled Tip Rods Cancelled Platelet Estimate Cancelled Hypogranular Platelets Cancelled Giant Platelets Cancelled Platelet Satelliting Cancelled RBC Morphology Cancelled Polychromasia Cancelled Hypochromasia Cancelled Poikilocytosis Cancelled Basophilic Stippling Cancelled Anisocytosis Cancelled Microcytosis Cancelled Macrocytosis Cancelled Spherocytes Cancelled Pappenheimer Bodies Cancelled Sickle Cells Cancelled Target Cells Cancelled Tear Drop Cells Cancelled Ovalocytes Cancelled Stomatocytes Cancelled [place] Bodies Cancelled Echinocytes Cancelled Acanthocytes (Spur) Cancelled Rouleaux Cancelled RBC Agglutinates Cancelled Schistocytes Cancelled Sezary Cell Cancelled PT 10.5 (9.0-12.0) Seconds INR 1.0 (0.9-1.1) APTT 23 (21-31) Seconds PTT Ratio 0.9 POC Sodium 141 (135-144) mmol/L Sodium 139 (136-145) mmol/L POC Potassium 3.7 (3.3-5.0) mmol/L Potassium 3.6 (3.5-5.1) mmol/L POC Chloride 106 (101-112) mmol/L Chloride 106 (98-107) mmol/L Carbon Dioxide 23 (21-32) mmol/L POC Total CO2 23 L (24-31) mmol/L Anion Gap 10 (3-11) POC Anion Gap 17.0 (16-25) mmol/L POC BUN 14 (7-18) mg/dl BUN 14 (6-23) mg/dl Creatinine 1.13 (0.6-1.4) mg/dl POC Creatinine 1.1 (0.6-1.3) mg/dl Est Cr Clr Drug Dosing 48.7 ml/min eGFR 65.71 BUN/Creatinine Ratio 12.4 (10-20) Glucose 143 H (70-99(Fasting)) mg/dl POC Glucose (other) 139 H (70-99) mg/dl Calcium 9.7 (8.6-10.3) mg/dl POC Ioniz Calcium Tatiana 1.20 (1.12-1.32) mmol/l Magnesium 2.0 (1.7-2.4) mg/dl Total Bilirubin 0.7 (0.2-1.0) mg/dl AST 19 (13-39) U/L ALT 17 (7-52) U/L Alkaline Phosphatase 59 (34-104) U/L Troponin I High Sens 5.2 (0-20) pg/ml Total Protein 7.7 (6.0-8.3) gm/dl Albumin 4.3 (3.4-5.0) gm/dl Globulin 3.4 (2.5-4.0) gm/dl Albumin/Globulin Ratio 1.3 (0.9-2) Urine Color Yellow Urine Appearance Clear (Clear) Urine pH 8.5 H (4.5-7.5) Ur Specific [place] 1.021 (1.000-1.030) Urine Protein Negative (Negative) Urine Glucose (UA) Negative (Negative) Urine Ketones Negative (Negative) Urine Blood Trace H (Negative) Urine Nitrite Negative (Negative) Urine Bilirubin Negative (Negative) Urine Urobilinogen Negative (Negative) Ur Leukocyte Esterase Negative (Negative) Urine WBC (Auto) 0-5 (0-5) /hpf Urine RBC (Auto) 0-2 (0-2) /hpf U Hyaline Cast (Auto) 0-2 (0-2) /lpf U Epithel Cells (Auto) 0-2 (0-2) /hpf Urine Bacteria (Auto) None Seen (None Seen) Urine Comment Blood Parasites ID Cancelled Administered Medications Discontinued Medications Ioversol (Optiray 320 125ml) 118 ml IV ONCE ONE Stop: 03/15/25 15:23 Last Admin: 03/15/25 15:22 Dose: 118 ml Documented By: ZAIDA Imaging Data Attestation: I personally reviewed and interpreted this imaging study as follows: My Impression: 1 view chest x-ray was obtained in the emergency department. My interpretation is no free air or definite infiltrate, final report below. Radiologist's Impression: Chest X-Ray 03/15/25 15:00 XR chest 1V portable CLINICAL HISTORY: neuro deficit, acute stroke suspected COMPARISON STUDY: 10/04/2022 FINDINGS: Heart size and pulmonary vasculature are normal. No consolidation or pleural effusion. No pneumothorax. IMPRESSION: No acute findings. ACT 112: Negative or not required by law. Electronically signed by: Alistair Flores M.D. 03/15/2025 3:[address] 03/15/25 15:00 CT head/brain wo con CLINICAL HISTORY: neuro deficit, acute stroke suspected. TECHNIQUE: Multiple axial CT images of the head were obtained without contrast. A dose lowering technique was utilized adhering to the principles of ALARA. CT DOSE: 1162.88mGy*cm COMPARISON: None FINDINGS: There is no intra-axial or extra-axial fluid collection, hemorrhage, or mass. There is global atrophy and presumptive small vessel insufficiency. There is no midline shift. No focal attenuation abnormality of significance. The calvarium is intact. IMPRESSION: Senescent changes as described. No acute intracranial process. ACT 112: Negative or not required by law. The above report was generated using voice recognition software. It may contain grammatical, syntax or spelling errors. Electronically signed by: Virginia Jauregui M.D. 03/15/2025 3:38 PM Head CTA 03/15/25 15:00 CT angio head w con CLINICAL HISTORY: neuro deficit, acute stroke suspected. TECHNIQUE: Unenhanced axial CT scan of the brain is performed. Subsequently, following the IV administration of 120 cc of Optiray, CT angiogram of the brain was performed from the skull base to the vertex. Images are reviewed in the axial, sagittal, and coronal planes. 3-D MIPS images are created and assessed. IV contrast was administered without complication. All measurements were obtained according to NASCET criteria. A dose lowering technique was utilized adhering to the principles of ALARA. CT DOSE: 1162.88 mGy.cm COMPARISON STUDY: None FINDINGS: There is atherosclerotic calcification distally at the right internal carotid artery which causes short segment moderate narrowing. Otherwise the distal internal carotid and vertebral arteries show no significant narrowing. Basilar artery is patent. Anterior, middle, and posterior cerebral arteries are patent. Cerebral venous sinuses opacify normally. IMPRESSION: 1. No significant arterial narrowing or occlusion seen at the brain. 2. Moderate focal narrowing distal most right internal carotid artery. ACT 112: Negative or not required by law. The above report was generated using voice recognition software. It may contain grammatical, syntax or spelling errors. Electronically signed by: Alistair Flores M.D. 03/15/2025 3:40 PM Neck CTA 03/15/25 15:00 CT ANGIOGRAM OF THE NECK CLINICAL HISTORY: Neurological deficit. Stroke like symptoms. COMPARISON STUDY: No priors TECHNIQUE: Following the IV administration of 118 of Optiray 320, CT angiogram of the neck was performed from the aortic arch to the skull base. Images are reviewed in the axial, sagittal, and coronal planes. 3-D MIPS images are created and assessed. IV contrast was administered without complication. All measurements were calculated based on NASCET criteria. A dose lowering technique was utilized adhering to the principles of ALARA. FINDINGS: Thoracic aorta: There is atherosclerotic calcification of the thoracic aorta. Visualized portions of the thoracic aorta are normal in caliber. The aortic arch demonstrates standard 3-vessel anatomy. Right carotid arterial system: The right common carotid artery is widely patent noting atherosclerotic plaque and irregularity. There is atherosclerotic plaque in the carotid bulb. There is less than 50% focal stenosis of the mid right internal carotid artery seen on axial image #273. The internal and external carotid arteries are otherwise patent. Left carotid arterial system: The left common carotid artery is widely patent noting atherosclerotic plaque and irregularity. There is atherosclerotic plaque in the carotid bulb. This causes less than 50% stenosis of the mid internal carotid artery as seen on axial image #285. The remainder of the vessels patent, as is the external carotid artery. Vertebral arteries: There is high-grade focal stenosis at the origin of the left vertebral artery seen on axial image #139. Moderate focal stenosis at the origin of the right vertebral artery. The vertebral arteries are otherwise patent in the neck and codominant. Subclavian arteries: Widely patent bilaterally. Intracranial vasculature: The visualized intracranial vessels at the skull base are patent. Jugular veins: Patent bilaterally. Brain parenchyma: The visualized brain parenchyma the skull base is within normal limits. Lung apices: Partially visualized upper lobe lung parenchyma appears clear. Soft tissues: The visualized pharyngeal soft tissues are normal in appearance noting angiographic phase technique. The oropharyngeal airway appears widely patent. The salivary and thyroid glands are normal in appearance. No cervical lymphadenopathy is seen. Skeletal structures: The skeletal structures are osteopenic. The visualized calvarium at the skull base appears intact. The imaged cervical spine is maintained noting multilevel spondylosis. Sinuses and mastoids: Visualized paranasal sinuses are clear. The mastoid air cells are well pneumatized. IMPRESSION: 1. There is less than 50% focal stenosis identified in the midportion of both the right and left internal carotid arteries. 2. 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 3. There is moderate focal stenosis at the origin of the right vertebral artery. 4. Additional findings as above. ACT 112: Negative or not required by law. Electronically signed by: Barry White M.D. 03/15/2025 3:55 PM Discharge Plan Visit Data Chief Complaint: Weakness Stated Complaint: R ARM WEAKNESS, BILAT. LEG WEAKNESS, DIFF AMBULATI ED Provider: Ck Stallworth Discharge Problem: Stroke-like symptoms, RUE weakness Patient Disposition: Being Evaluated by Hospitalist Condition: Fair Forms Stand Alone Forms: [facility] Brandon Scopely Prescriptions Prescriptions: No Action pantoprazole 40 mg tablet,delayed release (DR/EC) 40 mg PO DAILY PRN (Reason: gastric reflux) Qty: 90 3RF Rx Instructions: for GERD symptoms rosuvastatin 5 mg tablet 5 mg PO DAILY Qty: 90 3RF Rx Instructions: LAST FILLED 12/04/24 FOR 90 DAYS/90 TAB. PER PT "TAKING 5 MG", PER EXT MED HX--12/26/24--10 MG ORDERED 90 DAYS/90 TAB. losartan 25 mg tablet 25 mg PO DAILY Qty: 90 3RF rosuvastatin 10 mg tablet 10 mg PO DAILY Qty: 90 3RF Rx Instructions: PER EXT MED HX--12/26/24--10 MG ORDERED 90 DAYS/90 TAB. LAST FILLED 12/04/24 FOR 90 DAYS/90 TAB. PER PT "TAKING 5 MG" aspirin 81 mg tablet,delayed release (DR/EC) 81 mg PO QAM Qty: 90 0RF nitroglycerin [Nitrostat] 0.4 mg tablet, sublingual 0.4 mg sublingual PRN PRN (Reason: chest pain) Qty: 30 0RF sildenafil 100 mg tablet 100 mg PO DAILY PRN (Reason: Erectile Dysfunction) Referrals Referrals: Blaine Baca DO [Physician] -
--- NOTE | 2025-03-15 15:19 | XRay Report ---
XR chest 1V portable CLINICAL HISTORY: neuro deficit, acute stroke suspected COMPARISON STUDY: 10/04/2022 FINDINGS: Heart size and pulmonary vasculature are normal. No consolidation or pleural effusion. No p neumothorax. IMPRESSION: No acute findings. ACT 112: Negative or not required by law. Electronically signed by: Alistair Flores M.D. 03/15/2025 3:17 PM
[2025-03-15] MEDS: OPTIRAY 320 125ml IV ONE (15:22)
--- NOTE | 2025-03-15 15:40 | CT Scan Report ---
CT head/brain wo con CLINICAL HISTORY: neuro deficit, acute stroke suspected. TECHNIQUE: Multiple axial CT images of the head were obtained without contrast. A dose lowering tech nique was utilized adhering to the principles of ALARA. CT DOSE: 1162.88mGy*cm COMPARISON: None FINDINGS: There is no intra-axial or extra-axial fluid collection, hemorrhage, or mass. There is glob al atrophy and presumptive small vessel insufficiency. There is no midline shift. No focal attenuatio n abnormality of significance. The calvarium is intact. IMPRESSION: Senescent changes as described. No acute intracranial process. ACT 112: Negative or not required by law. The above report was generated using voice recognition software. It may contain grammatical, syntax o r spelling errors. Electronically signed by: Virginia Jauregui M.D. 03/15/2025 3:38 PM
--- NOTE | 2025-03-15 15:42 | CT Scan Report ---
CT angio head w con CLINICAL HISTORY: neuro deficit, acute stroke suspected. TECHNIQUE: Unenhanced axial CT scan of the brain is performed. Subsequently, following the IV adminis tration of 120 cc of Optiray, CT angiogram of the brain was performed from the skull base to the vert ex. Images are reviewed in the axial, sagittal, and coronal planes. 3-D MIPS images are created and a ssessed. IV contrast was administered without complication. All measurements were obtained according to NASCET criteria. A dose lowering technique was utilized adhering to the principles of ALARA. CT DOSE: 1162.88 mGy.cm COMPARISON STUDY: None FINDINGS: There is atherosclerotic calcification distally at the right internal carotid artery which causes short segment moderate narrowing. Otherwise the distal internal carotid and vertebral arteries show no significant narrowing. Basilar artery is patent. Anterior, middle, and posterior cerebral ar teries are patent. Cerebral venous sinuses opacify normally. IMPRESSION: 1. No significant arterial narrowing or occlusion seen at the brain. 2. Moderate focal narrowing distal most right internal carotid artery. ACT 112: Negative or not required by law. The above report was generated using voice recognition software. It may contain grammatical, syntax o r spelling errors. Electronically signed by: Alistair Flores M.D. 03/15/2025 3:40 PM
[2025-03-15 15:43] LABS: Alanine Aminotransferase 17.0 U/L (7-52); Albumin Globulin Ratio 1.3 (0.9-2); Alkaline Phosphatase 59.0 U/L (34-104); Anion Gap 10.0 (3-11); Bilirubin,Total 0.7 mg/dl (0.2-1.0); Blood Urea Nitrogen 14.0 mg/dl (6-23); Calcium 9.7 mg/dl (8.6-10.3); Carbon Dioxide 23.0 mmol/L (21-32); Chloride 106.0 mmol/L (98-107); Creatinine Clr Calc Pharmacy 48.7 ml/min; Globulin 3.4 gm/dl (2.5-4.0); Glucose 143.0 mg/dl (70-99(Fasting)); Magnesium 2.0 mg/dl (1.7-2.4); Potassium 3.6 mmol/L (3.5-5.1); Sodium 139.0 mmol/L (136-145); Total Protein 7.7 gm/dl (6.0-8.3)
[2025-03-15 15:56] LABS: INR 1.0 (0.9-1.1); Partial Thromboplastin Time 23 Seconds (21-31); Prothrombin Time 10.5 Seconds (9.0-12.0)
--- NOTE | 2025-03-15 15:57 | CT Scan Report ---
CT ANGIOGRAM OF THE NECK CLINICAL HISTORY: Neurological deficit. Stroke like symptoms. COMPARISON STUDY: No priors TECHNIQUE: Following the IV administration of 118 of Optiray 320, CT angiogram of the neck was perfor med from the aortic arch to the skull base. Images are reviewed in the axial, sagittal, and coronal p lanes. 3-D MIPS images are created and assessed. IV contrast was administered without complication. A ll measurements were calculated based on NASCET criteria. A dose lowering technique was utilized adh ering to the principles of ALARA. FINDINGS: Thoracic aorta: There is atherosclerotic calcification of the thoracic aorta. Visualized portions of the thoracic aorta are normal in caliber. The aortic arch demonstrates standard 3-vessel anatomy. Right carotid arterial system: The right common carotid artery is widely patent noting atheroscleroti c plaque and irregularity. There is atherosclerotic plaque in the carotid bulb. There is less than 50 % focal stenosis of the mid right internal carotid artery seen on axial image #273. The internal and external carotid arteries are otherwise patent. Left carotid arterial system: The left common carotid artery is widely patent noting atherosclerotic plaque and irregularity. There is atherosclerotic plaque in the carotid bulb. This causes less than 5 0% stenosis of the mid internal carotid artery as seen on axial image #285. The remainder of the vess els patent, as is the external carotid artery. Vertebral arteries: There is high-grade focal stenosis at the origin of the left vertebral artery see n on axial image #139. Moderate focal stenosis at the origin of the right vertebral artery. The verte bral arteries are otherwise patent in the neck and codominant. Subclavian arteries: Widely patent bilaterally. Intracranial vasculature: The visualized intracranial vessels at the skull base are patent. Jugular veins: Patent bilaterally. Brain parenchyma: The visualized brain parenchyma the skull base is within normal limits. Lung apices: Partially visualized upper lobe lung parenchyma appears clear. Soft tissues: The visualized pharyngeal soft tissues are normal in appearance noting angiographic pha se technique. The oropharyngeal airway appears widely patent. The salivary and thyroid glands are nor mal in appearance. No cervical lymphadenopathy is seen. Skeletal structures: The skeletal structures are osteopenic. The visualized calvarium at the skull ba se appears intact. The imaged cervical spine is maintained noting multilevel spondylosis. Sinuses and mastoids: Visualized paranasal sinuses are clear. The mastoid air cells are well pneumati zed. IMPRESSION: 1. There is less than 50% focal stenosis identified in the midportion of both the right and left inte rnal carotid arteries. 2. 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 3. There is moderate focal stenosis at the origin of the right vertebral artery. 4. Additional findings as above. ACT 112: Negative or not required by law. Electronically signed by: Barry White M.D. 03/15/2025 3:55 PM
[2025-03-15 16:04] LABS: Appearance Urine Clear (Clear); Bacteria Urine Automated None Seen (None Seen); Cast Urine Automated 0-2 /lpf (0-2); Epithelial Cell Urine Auto 0-2 /hpf (0-2); Glucose Urine UA Negative (Negative); RBC Urine Automated 0-2 /hpf (0-2); WBC Urine Automated 0-5 /hpf (0-5)
[2025-03-15 16:57] LABS: Hematocrit (blood only) 43.3 % (42.0-52.0); Hemoglobin 15.1 g/dl (14.0-18.0); Immature Granulocytes # (auto) 0.02 K/uL (0.01-0.20); Immature Granulocytes % (auto) 0.2 %; Mean Corpuscular Hemoglobin 32.3 pg (25.0-34.0); Mean Corpuscular Volume 92.7 fL (80.0-100.0); Platelet Count 221 K/uL (130-400); RDW Standard Deviation 39.7 fL (36.4-46.3); Red Blood Count 4.67 M/uL (4.70-6.10); White Blood Count 9.61 K/ul (4.8-10.8)
--- NOTE | 2025-03-15 18:24 | Communication Note ---
Date of Service: March 15, 2025 I was called to admit this patient. However he does not want to stay. He wishes to leave AGAINST MEDICAL ADVICE. I explained to him that he likely had a stroke and will need further workup and medication changes. He is awake and alert and is in sound state of mind. He is able to reason through his decision. He tells me that his is alone at home and stay by herself as she is sick. I have informed the ED doctor that he wishes to leave AMA.
--- NOTE | 2025-03-15 21:23 | History & Physical Report ---
Date of Service March 15, 2025 Assessment & Plan (1) Stroke-like symptoms: (2) RUE weakness: (3) Stented coronary artery: (4) Dizziness: (5) Coronary artery disease: Plan The patient is an 79-year-old male with a past medical history including stented coronary artery, history of [place], CAD, grade 2 diastolic dysfunction, hypertension, hyperlipidemia, GERD and hypertension. He has had chronic dizziness over the past 10 years or so, and reports having had workup performed at multiple tertiary care facilities including [facility] and [facility]. He reports no change in dizziness symptoms at this time. He denies any difficulty with speech or swallowing. He reports that his symptoms of right extremity weakness have resolved completely at this time. 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 He agrees to be admitted at this time for further evaluation. He cannot undergo a closed MRI, and reports he can only do an open MRI. Strokelike symptoms/resolved right upper extremity weakness- The patient will be admitted to telemetry for serial cardiac enzymes, serial EKG's, cardiac rhythm monitoring and a 2-D echocardiogram with Dopplers. Stroke without thrombolytic order set CT scan head no acute findings CTA head shows moderate focal narrowing of the distal right ICA CTA neck shows high-grade stenosis at the origin left vertebral artery. Modera te focal stenosis at the origin of the right vertebral artery Continue aspirin and Plavix Hold losartan, permissive hypertension Consult neurology CAD/hypertension/history of [place]- Continue aspirin and Plavix Holding losartan Hyperlipidemia- Continue rosuvastatin GERD- Continue pantoprazole History of Present Illness Chief Complaint: The patient presents to the emergency department with complaint of right upper extremity weakness that began yesterday, but at this time has resolved completely. He also reports bilateral lower extremity weakness that he attributes to fatigue. Primary Care Provider: NO PCP The patient is an 79-year-old male with a past medical history including stented coronary artery, history of [place], CAD, grade 2 diastolic dysfunction, hypertension, hyperlipidemia, GERD and hypertension. He has had chronic dizziness over the past 10 years or so, and reports having had workup performed at multiple tertiary care facilities including [facility] and [facility]. He reports no change in dizziness symptoms at this time. He denies any difficulty with speech or swallowing. He reports that his symptoms of right extremity weakness have resolved completely at this time. 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 He agrees to be admitted at this time for further evaluation. He cannot undergo a closed MRI, and reports he can only do an open MRI. Allergies Allergy/AdvReac Type Severity Reaction Status Date / Time No Known Allergies Allergy Verified 03/15/25 16:24 Home Medications Medication Instructions Recorded Confirmed Type nitroglycerin 0.4 mg sublingual 0.4 mg sublingual PRN PRN chest 11/16/23 03/15/25 Rx tablet (Nitrostat) pain #30 tabs pantoprazole 40 mg tablet,delayed 40 mg PO DAILY PRN gastric reflux 04/04/24 03/15/25 Rx release #90 tabs rosuvastatin 5 mg tablet 5 mg PO DAILY #90 tabs 12/04/24 03/15/25 Rx losartan 25 mg tablet 25 mg PO DAILY #90 tabs 12/08/24 03/15/25 Rx aspirin 81 mg tablet,delayed 81 mg PO QAM #90 tabs 12/25/24 03/15/25 Rx release rosuvastatin 10 mg tablet 10 mg PO DAILY #90 tabs 12/26/24 03/15/25 Rx clopidogrel 75 mg tablet (Plavix) 75 mg PO DAILY #30 tabs 03/15/25 Rx sildenafil 100 mg tablet 100 mg PO DAILY PRN Erectile 03/15/25 03/15/25 History Dysfunction Past Med/Surg History Problem List (Updated 03/15/25 @ 16:34 by Ck Stallworth DO) RUE weakness (Acute) Stroke-like symptoms (Acute) Stented coronary artery Dizziness History of myocardial infarction ST elevation myocardial infarction, status post cardiac cath with JOHNNY in mid ramus, mid and distal LAD Elevated fasting glucose Coronary artery disease Grade II diastolic dysfunction HTN (hypertension) (Chronic) Hyperlipidemia (Chronic) Medical History Acute gangrenous cholecystitis Biliary colic First degree AV block Lumbar spinal stenosis Kidney stones Surgical History Hx laparoscopic cholecystectomy (10/22/21) Laparoscopic Cholecystectomy - Alistair Cody DO, FACS 10/22/2021 Hx of cholecystectomy History of tonsillectomy and adenoidectomy History of back surgery x 2 History of carpal tunnel release Family History Father Myocardial infarction, Onset Age: 65 Hx of CABG Brother Myocardial infarction Mother Myocardial infarction, Onset Age: 72 Denies family history of Ovarian cancer Prostate cancer Breast cancer Colorectal cancer Social History Smoking Status: Never smoker Second Hand Exposure: No; Do You Dip or Chew Tobacco: No; Hx Alcohol Use: No Hx Substance Use: No Preferred Language: Romansh Communication Ability: Effective Visual Impairment: No Limitations Laundry Folder Required: No Beliefs That Will Affect Care: None marital status: Current Living Situation: Spouse Feels Safe at Home: Yes Childhood Exposure to Second-Hand Smoke: Yes Diet: regular Dental Care, Regularly: Yes Physical Activity Frequency: Daily Seatbelt Use: sometimes Sunscreen Use: No Assistive Devices: Denture - Upper and Glasses Review of Systems Review of Systems: The patient denies chest pain, palpitations, shortness of breath, dyspnea on exertion, cough, lower extremity swelling, sore throat, fevers, chills, sweats, nausea, vomiting, diarrhea , constipation, abdominal pain, pelvic pain, blood in urine or stool, dysuria, urinary frequency or urgency, lightheadedness, dizziness, headache, memory loss, loss of consciousness, rash, abnormal bruising or bleeding, imbalance, generalized arthralgias or myalgias, back or neck pain, or night sweats. The review of systems is otherwise negative other than for that already noted above, and at least 10 systems have been reviewed. Physical Exam Physical Exam: The patient is awake, alert and oriented 3, well developed and well nourished, normocephalic and atraumatic, lying in bed and in no acute distress. HEENT--PERRL, EOMI, mucous membranes and oropharynx normal Neck--supple. No JVD. No bruits. Thyroid normal, trachea midline, no adenopathy. Heart--normal S1 and S2. No murmurs, rubs or gallops. Lungs--clear bilaterally, no respiratory distress, no accessory muscle use. Abdomen--normal bowel sounds and soft. Nontender. Nondistended Extremities--No edema. Dermatologic--normal skin turgor, normal color, no abnormal lymph nodes, no rash. Neurologic--cranial nerves II through XII grossly intact. Rheumatologic--normal range of motion. Psychiatric--normal affect. Results & Data Results & Data Vital Signs (Past 12 Hours) Vital Signs Temp Pulse Pulse Resp BP BP Pulse Ox 03/15/25 19:53 77 18 198/109 H 99 03/15/25 17:06 79 18 183/92 H 96 03/15/25 16:36 76 16 188/115 H 99 03/15/25 16:00 71 21 146/117 H 98 03/15/25 15:30 77 22 201/106 H 99 03/15/25 14:58 03/15/25 14:58 36.7 C 75 21 207/104 H 98 O2 Del Method 03/15/25 19:53 Room Air 03/15/25 17:06 03/15/25 16:36 03/15/25 16:00 03/15/25 15:30 03/15/25 14:58 Room Air 03/15/25 14:58 Room Air Laboratory Results Laboratory Results WBC 9.61 K/ul (4.8-10.8) 03/15/25 16:44 RBC 4.67 M/uL (4.70-6.10) L 03/15/25 16:44 Hgb 15.1 g/dl (14.0-18.0) 03/15/25 16:44 POC Hgb 15.0 g/dl (14.0-18.0) 03/15/25 15:09 Hct 43.3 % (42.0-52.0) 03/15/25 16:44 POC Hct 44 % (42-52) 03/15/25 15:09 MCV 92.7 fL (80.0-100.0) 03/15/25 16:44 MCH 32.3 pg (25.0-34.0) 03/15/25 16:44 MCHC 34.9 g/dL (32.0-36.0) 03/15/25 16:44 RDW Std Deviation 39.7 fL (36.4-46.3) 03/15/25 16:44 RDW Coeff of Charles 11.7 % (11.5-14.5) 03/15/25 16:44 Plt Count 221 K/uL (130-400) 03/15/25 16:44 MPV 10.6 fL (9.4-12.4) 03/15/25 16:44 Immature Gran % (Auto) 0.2 % 03/15/25 16:44 Neut % (Auto) 67.9 % 03/15/25 16:44 Lymph % (Auto) 20.9 % 03/15/25 16:44 Swain % (Auto) 10.5 % 03/15/25 16:44 Eos % (Auto) 0.3 % 03/15/25 16:44 Baso % (Auto) 0.2 % 03/15/25 16:44 Neut # (Auto) 6.52 K/uL (1.40-6.50) H 03/15/25 16:44 Lymph # (Auto) 2.01 K/uL (1.20-3.40) 03/15/25 16:44 Swain # (Auto) 1.01 K/uL (0.11-0.59) H 03/15/25 16:44 Eos # (Auto) 0.03 K/uL (0.00-0.50) 03/15/25 16:44 Baso # (Auto) 0.02 K/uL (0.00-0.20) 03/15/25 16:44 Immature Gran # (Auto) 0.02 K/uL (0.01-0.20) 03/15/25 16:44 Absolute Nucleated RBC Cancelled 03/15/25 15:10 Nucleated RBC % (auto) Cancelled 03/15/25 15:10 Neutrophils % (Manual) Cancelled 03/15/25 15:10 Band Neutrophils % Cancelled 03/15/25 15:10 Lymphocytes % (Manual) Cancelled 03/15/25 15:10 Prolymphocyte % Cancelled 03/15/25 15:10 Reactive Lymphs % (Man) Cancelled 03/15/25 15:10 Monocytes % (Manual) Cancelled 03/15/25 15:10 Eosinophils % (Manual) Cancelled 03/15/25 15:10 Basophils % (Manual) Cancelled 03/15/25 15:10 Metamyelocytes % (Man) Cancelled 03/15/25 15:10 Myelocytes % (Man) Cancelled 03/15/25 15:10 Promyelocytes % (Man) Cancelled 03/15/25 15:10 Blast Cells % (Manual) Cancelled 03/15/25 15:10 Plasma Cell % (Manual) Cancelled 03/15/25 15:10 Other Cells % Cancelled 03/15/25 15:10 Nucleated RBC % Cancelled 03/15/25 15:10 Neutrophils # (Manual) Cancelled 03/15/25 15:10 Band Neutrophils # Cancelled 03/15/25 15:10 Total Absolute Neuts Cancelled 03/15/25 15:10 Lymphocytes # (Manual) Cancelled 03/15/25 15:10 Prolymphocyte # Cancelled 03/15/25 15:10 Reactive Lymphs # Cancelled 03/15/25 15:10 Total Abs Lymphocytes Cancelled 03/15/25 15:10 Monocytes # (Manual) Cancelled 03/15/25 15:10 Eosinophils # (Manual) Cancelled 03/15/25 15:10 Basophils # (Manual) Cancelled 03/15/25 15:10 Metamyelocytes # (Man) Cancelled 03/15/25 15:10 Myelocytes # (Manual) Cancelled 03/15/25 15:10 Promyelocytes # (Man) Cancelled 03/15/25 15:10 Blast Cells # (Man) Cancelled 03/15/25 15:10 Plasma Cell # (Manual) Cancelled 03/15/25 15:10 Other Cells # Cancelled 03/15/25 15:10 Nucleated RBCs # (Man) Cancelled 03/15/25 15:10 Hypersegmented Neuts Cancelled 03/15/25 15:10 Hyposegmented Neuts Cancelled 03/15/25 15:10 Hypogranular Neuts Cancelled 03/15/25 15:10 Large Granular Lymphs Cancelled 03/15/25 15:10 # Lrg Granular Lymphs Cancelled 03/15/25 15:10 Hairy Cells Cancelled 03/15/25 15:10 Smudge Cells Cancelled 03/15/25 15:10 Toxic Granulation Cancelled 03/15/25 15:10 Toxic Vacuolation Cancelled 03/15/25 15:10 Dohle Bodies Cancelled 03/15/25 15:10 Tip Rods Cancelled 03/15/25 15:10 Platelet Estimate Cancelled 03/15/25 15:10 Hypogranular Platelets Cancelled 03/15/25 15:10 Giant Platelets Cancelled 03/15/25 15:10 Platelet Satelliting Cancelled 03/15/25 15:10 RBC Morphology Cancelled 03/15/25 15:10 Polychromasia Cancelled 03/15/25 15:10 Hypochromasia Cancelled 03/15/25 15:10 Poikilocytosis Cancelled 03/15/25 15:10 Basophilic Stippling Cancelled 03/15/25 15:10 Anisocytosis Cancelled 03/15/25 15:10 Microcytosis Cancelled 03/15/25 15:10 Macrocytosis Cancelled 03/15/25 15:10 Spherocytes Cancelled 03/15/25 15:10 Pappenheimer Bodies Cancelled 03/15/25 15:10 Sickle Cells Cancelled 03/15/25 15:10 Target Cells Cancelled 03/15/25 15:10 Tear Drop Cells Cancelled 03/15/25 15:10 Ovalocytes Cancelled 03/15/25 15:10 Stomatocytes Cancelled 03/15/25 15:10 [place] Bodies Cancelled 03/15/25 15:10 Echinocytes Cancelled 03/15/25 15:10 Acanthocytes (Spur) Cancelled 03/15/25 15:10 Rouleaux Cancelled 03/15/25 15:10 RBC Agglutinates Cancelled 03/15/25 15:10 Schistocytes Cancelled 03/15/25 15:10 Sezary Cell Cancelled 03/15/25 15:10 PT 10.5 Seconds (9.0-12.0) 03/15/25 15:10 INR 1.0 (0.9-1.1) 03/15/25 15:10 APTT 23 Seconds (21-31) 03/15/25 15:10 PTT Ratio 0.9 03/15/25 15:10 POC Sodium 141 mmol/L (135-144) 03/15/25 15:09 Sodium 139 mmol/L (136-145) 03/15/25 15:10 POC Potassium 3.7 mmol/L (3.3-5.0) 03/15/25 15:09 Potassium 3.6 mmol/L (3.5-5.1) 03/15/25 15:10 POC Chloride 106 mmol/L (101-112) 03/15/25 15:09 Chloride 106 mmol/L (98-107) 03/15/25 15:10 Carbon Dioxide 23 mmol/L (21-32) 03/15/25 15:10 POC Total CO2 23 mmol/L (24-31) L 03/15/25 15:09 Anion Gap 10 (3-11) 03/15/25 15:10 POC Anion Gap 17.0 mmol/L (16-25) 03/15/25 15:09 POC BUN 14 mg/dl (7-18) 03/15/25 15:09 BUN 14 mg/dl (6-23) 03/15/25 15:10 Creatinine 1.13 mg/dl (0.6-1.4) 03/15/25 15:10 POC Creatinine 1.1 mg/dl (0.6-1.3) 03/15/25 15:09 Est Cr Clr Drug Dosing 48.7 ml/min 03/15/25 15:10 eGFR 65.71 03/15/25 15:10 BUN/Creatinine Ratio 12.4 (10-20) 03/15/25 15:10 Glucose 143 mg/dl (70-99(Fasting)) H 03/15/25 15:10 POC Glucose (other) 139 mg/dl (70-99) H 03/15/25 15:09 Calcium 9.7 mg/dl (8.6-10.3) 03/15/25 15:10 POC Ioniz Calcium Tatiana 1.20 mmol/l (1.12-1.32) 03/15/25 15:09 Magnesium 2.0 mg/dl (1.7-2.4) 03/15/25 15:10 Total Bilirubin 0.7 mg/dl (0.2-1.0) 03/15/25 15:10 AST 19 U/L (13-39) 03/15/25 15:10 ALT 17 U/L (7-52) 03/15/25 15:10 Alkaline Phosphatase 59 U/L (34-104) 03/15/25 15:10 Troponin I High Sens 5.2 pg/ml (0-20) 03/15/25 15:10 Total Protein 7.7 gm/dl (6.0-8.3) 03/15/25 15:10 Albumin 4.3 gm/dl (3.4-5.0) 03/15/25 15:10 Globulin 3.4 gm/dl (2.5-4.0) 03/15/25 15:10 Albumin/Globulin Ratio 1.3 (0.9-2) 03/15/25 15:10 Urine Color Yellow 03/15/25 15:47 Urine Appearance Clear (Clear) 03/15/25 15:47 Urine pH 8.5 (4.5-7.5) H 03/15/25 15:47 Ur Specific [place] 1.021 (1.000-1.030) 03/15/25 15:47 Urine Protein Negative (Negative) 03/15/25 15:47 Urine Glucose (UA) Negative (Negative) 03/15/25 15:47 Urine Ketones Negative (Negative) 03/15/25 15:47 Urine Blood Trace (Negative) H 03/15/25 15:47 Urine Nitrite Negative (Negative) 03/15/25 15:47 Urine Bilirubin Negative (Negative) 03/15/25 15:47 Urine Urobilinogen Negative (Negative) 03/15/25 15:47 Ur Leukocyte Esterase Negative (Negative) 03/15/25 15:47 Urine WBC (Auto) 0-5 /hpf (0-5) 03/15/25 15:47 Urine RBC (Auto) 0-2 /hpf (0-2) 03/15/25 15:47 U Hyaline Cast (Auto) 0-2 /lpf (0-2) 03/15/25 15:47 U Epithel Cells (Auto) 0-2 /hpf (0-2) 03/15/25 15:47 Urine Bacteria (Auto) None Seen (None Seen) 03/15/25 15:47 Urine Comment 03/15/25 15:47 Blood Parasites ID Cancelled 03/15/25 15:10 Impressions Chest X-Ray 03/15/25 15:00 XR chest 1V portable CLINICAL HISTORY: neuro deficit, acute stroke suspected COMPARISON STUDY: 10/04/2022 FINDINGS: Heart size and pulmonary vasculature are normal. No consolidation or pleural effusion. No pneumothorax. IMPRESSION: No acute findings. ACT 112: Negative or not required by law. Electronically signed by: Alistair Flores M.D. 03/15/2025 3:[address] 03/15/25 15:00 CT head/brain wo con CLINICAL HISTORY: neuro deficit, acute stroke suspected. TECHNIQUE: Multiple axial CT images of the head were obtained without contrast. A dose lowering technique was utilized adhering to the principles of ALARA. CT DOSE: 1162.88mGy*cm COMPARISON: None FINDINGS: There is no intra-axial or extra-axial fluid collection, hemorrhage, or mass. There is global atrophy and presumptive small vessel insufficiency. There is no midline shift. No focal attenuation abnormality of significance. The calvarium is intact. IMPRESSION: Senescent changes as described. No acute intracranial process. ACT 112: Negative or not required by law. The above report was generated using voice recognition software. It may contain grammatical, syntax or spelling errors. Electronically signed by: Virginia Jauregui M.D. 03/15/2025 3:38 PM Head CTA 03/15/25 15:00 CT angio head w con CLINICAL HISTORY: neuro deficit, acute stroke suspected. TECHNIQUE: Unenhanced axial CT scan of the brain is performed. Subsequently, following the IV administration of 120 cc of Optiray, CT angiogram of the brain was performed from the skull base to the vertex. Images are reviewed in the axial, sagittal, and coronal planes. 3-D MIPS images are created and assessed. IV contrast was administered without complication. All measurements were obtained according to NASCET criteria. A dose lowering technique was utilized adhering to the principles of ALARA. CT DOSE: 1162.88 mGy.cm COMPARISON STUDY: None FINDINGS: There is atherosclerotic calcification distally at the right internal carotid artery which causes short segment moderate narrowing. Otherwise the distal internal carotid and vertebral arteries show no significant narrowing. Basilar artery is patent. Anterior, middle, and posterior cerebral arteries are patent. Cerebral venous sinuses opacify normally. IMPRESSION: 1. No significant arterial narrowing or occlusion seen at the brain. 2. Moderate focal narrowing distal most right internal carotid artery. ACT 112: Negative or not required by law. The above report was generated using voice recognition software. It may contain grammatical, syntax or spelling errors. Electronically signed by: Alistair Flores M.D. 03/15/2025 3:40 PM Neck CTA 03/15/25 15:00 CT ANGIOGRAM OF THE NECK CLINICAL HISTORY: Neurological deficit. Stroke like symptoms. COMPARISON STUDY: No priors TECHNIQUE: Following the IV administration of 118 of Optiray 320, CT angiogram of the neck was performed from the aortic arch to the skull base. Images are reviewed in the axial, sagittal, and coronal planes. 3-D MIPS images are created and assessed. IV contrast was administered without complication. All measurements were calculated based on NASCET criteria. A dose lowering technique was utilized adhering to the principles of ALARA. FINDINGS: Thoracic aorta: There is atherosclerotic calcification of the thoracic aorta. Visualized portions of the thoracic aorta are normal in caliber. The aortic arch demonstrates standard 3-vessel anatomy. Right carotid arterial system: The right common carotid artery is widely patent noting atherosclerotic plaque and irregularity. There is atherosclerotic plaque in the carotid bulb. There is less than 50% focal stenosis of the mid right internal carotid artery seen on axial image #273. The internal and external carotid arteries are otherwise patent. Left carotid arterial system: The left common carotid artery is widely patent noting atherosclerotic plaque and irregularity. There is atherosclerotic plaque in the carotid bulb. This causes less than 50% stenosis of the mid internal carotid artery as seen on axial image #285. The remainder of the vessels patent, as is the external carotid artery. Vertebral arteries: There is high-grade focal stenosis at the origin of the left vertebral artery seen on axial image #139. Moderate focal stenosis at the origin of the right vertebral artery. The vertebral arteries are otherwise patent in the neck and codominant. Subclavian arteries: Widely patent bilaterally. Intracranial vasculature: The visualized intracranial vessels at the skull base are patent. Jugular veins: Patent bilaterally. Brain parenchyma: The visualized brain parenchyma the skull base is within normal limits. Lung apices: Partially visualized upper lobe lung parenchyma appears clear. Soft tissues: The visualized pharyngeal soft tissues are normal in appearance noting angiographic phase technique. The oropharyngeal airway appears widely patent. The salivary and thyroid glands are normal in appearance. No cervical lymphadenopathy is seen. Skeletal structures: The skeletal structures are osteopenic. The visualized calvarium at the skull base appears intact. The imaged cervical spine is maintained noting multilevel spondylosis. Sinuses and mastoids: Visualized paranasal sinuses are clear. The mastoid air cells are well pneumatized. IMPRESSION: 1. There is less than 50% focal stenosis identified in the midportion of both the right and left internal carotid arteries. 2. 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 3. There is moderate focal stenosis at the origin of the right vertebral artery. 4. Additional findings as above. ACT 112: Negative or not required by law. Electronically signed by: Barry White M.D. 03/15/2025 3:55 PM Code Status & VTE Plan Code Status Full code VTE Prophylaxis Plan VTE Prophylaxis will be ordered: Yes PG Care Time/CCT Total # of Minutes Spent Total Time Spent with Patient: Total time spent is greater than 50% in coordination of care (as documented) at patient's floor/unit and/or counseling patient: Coding Level of Care Code 59566 INT INP/OBS CARE 3/75MIN Diagnoses Stroke-like symptoms R29.90 RUE weakness R29.898 Stented coronary artery Z95.5 Dizziness R42 Coronary artery disease involving [place] coronary artery of [place] heart without angina pectoris I25.10 Coronary Disease-Associated Artery/Lesion type: [place] artery [place] vs. transplanted heart: [place] heart Associated angina: without angina (5) Coronary artery disease Coronary Disease-Associated Artery/Lesion type: [place] artery [place] vs. tr ansplanted heart: [place] heart Associated angina: without angina Qualified Code(s): I25.10 - Atherosclerotic heart disease of [place] coronary artery without angina pectoris
[2025-03-15] MEDS ORDERED: ONDANSETRON INJ 2 MG/ML 2 ML VIAL IV PRN (22:49)
[2025-03-15] MEDS ORDERED: PHARMACIST DISCHARGE MED REC CONSULT PRN (22:49)
--- NOTE | 2025-03-16 06:25 | Communication Note ---
Date of Service: March 16, 2025 Informed by nurse that patient was complaining of R arm symptoms around 05:51. Went to bedside to evaluate pt. He is here for R arm weakness symptoms/stroke- like symptoms and had CT/CTA imaging last night that was negative. At bedside, pt states he feels well, no chest pain/SOB/headache/acute vision changes. Pt states he feels like his R arm is heavy. When I asked pt when this started he states he noticed it yesterday when at home when he tried to comb his hair. He states his R arm just feels very heavy. He also notes to me dizziness which is ultimately better described as unsteadiness that he states has been going on for 13-14 years. He states he had extensive workup for this including brain MRI at one point and states he was told he maybe had small strokes but never had symptoms that he noticed with them. Symptoms seem to be a continuation of symptoms he was admitted with, which started the morning of 03/15. Pt states he wishes to leave today to be home with his . He states she had a few toes amputated recently and got very sick afterwards and he would like to be with her during this time. When discussed that he should have an MRI to further evaluate his symptoms, he is fairly adamant against it, even if premedicated. Pt willing to stay to see day team but is fairly adamant about going home today He states he is not worried about his dizziness (unsteadiness) as it has been going on for over a decade and states he is not worried about the R arm heaviness he experiences as he figures he will just "live with it." Pt does not want further imaging at this time. L arm strength flexion and extension 5/5. R arm strength flex/ext 5/5 but slightly less than the L arm. No acute visual symptoms endorsed. Lower extremity strength 5/5 and symmetric. Resident Activity Tracking Resident Involvement: Resident Care Provided Care Provided: Adult Hospital Medicine
[2025-03-16 07:16] LABS: Hematocrit (blood only) 44.8 % (42.0-52.0); Hemoglobin 15.7 g/dl (14.0-18.0); Immature Granulocytes # (auto) 0.01 K/uL (0.01-0.20); Immature Granulocytes % (auto) 0.1 %; Mean Corpuscular Hemoglobin 32.6 pg (25.0-34.0); Mean Corpuscular Volume 92.9 fL (80.0-100.0); Platelet Count 249 K/uL (130-400); RDW Standard Deviation 40.7 fL (36.4-46.3); Red Blood Count 4.82 M/uL (4.70-6.10); White Blood Count 8.23 K/ul (4.8-10.8)
[2025-03-16 07:20] LABS: Hemoglobin A1C 6.2 % (4.5-5.6)
[2025-03-16 07:47] LABS: Alanine Aminotransferase 16.0 U/L (7-52); Albumin Globulin Ratio 1.5 (0.9-2); Alkaline Phosphatase 61.0 U/L (34-104); Anion Gap 9.0 (3-11); Bilirubin,Total 0.9 mg/dl (0.2-1.0); Blood Urea Nitrogen 13.0 mg/dl (6-23); Calcium 9.5 mg/dl (8.6-10.3); Carbon Dioxide 26.0 mmol/L (21-32); Chloride 106.0 mmol/L (98-107); Cholesterol 177.0 mg/dl (0-200); Creatinine Clr Calc Pharmacy 51.5 ml/min; Globulin 3.1 gm/dl (2.5-4.0); Glucose 107.0 mg/dl (70-99(Fasting)); HDL Cholesterol 40.0 mg/dl; Magnesium 2.0 mg/dl (1.7-2.4); Potassium 3.4 mmol/L (3.5-5.1); Sodium 141.0 mmol/L (136-145); Total Protein 7.7 gm/dl (6.0-8.3); Triglycerides 126.0 mg/dl (0-150)
[2025-03-16] MEDS: OPTIRAY 320 125ml IV ONE (08:16)
--- NOTE | 2025-03-16 08:45 | CT Scan Report ---
CT angio head wo/w CLINICAL HISTORY: RUE weakness COMPARISON STUDY: 03/15/2025 FINDINGS: Noncontrast head CT: There is mild residual vascular contrast from the contrast studies yesterday. No intracranial hemorrhage seen. No mass effect, midline shift, or hydrocephalus. There is stable diffu se patchy periventricular hypodensity which is nonspecific, but usually represents chronic small vess el ischemic change. No skull fracture seen. Visualized paranasal sinuses and mastoid air cells are cl ear. CTA: There is stable moderate focal narrowing distal most right internal carotid artery due to calcif ied plaque. Otherwise the visualized distal internal carotid and vertebral arteries show no significa nt narrowing. Basilar artery is patent. Anterior, middle, and posterior cerebral arteries are patent bilaterally. Cerebral venous sinuses opacify normally. IMPRESSION: 1. No acute findings seen. 2. No significant arterial narrowing or occlusion seen at the brain. 3. Stable moderate focal narrowing distally at the right internal carotid artery. ACT 112: Negative or not required by law. Electronically signed by: Alistair Flores M.D. 03/16/2025 8:43 AM
--- NOTE | 2025-03-16 08:45 | CT Scan Report ---
CT ANGIOGRAM OF THE NECK CLINICAL HISTORY: Right upper extremity weakness. COMPARISON STUDY: CT angiogram of the neck dated 03/15/2025. TECHNIQUE: Following the IV administration of 118 of Optiray 320, CT angiogram of the neck was perfor med from the aortic arch to the skull base. Images are reviewed in the axial, sagittal, and coronal p lanes. 3-D MIPS images are created and assessed. IV contrast was administered without complication. A ll measurements were calculated based on NASCET criteria. A dose lowering technique was utilized adh ering to the principles of ALARA. FINDINGS: Thoracic aorta: There is atherosclerotic calcification of the thoracic aorta. Visualized portions of the thoracic aorta are normal in caliber. The aortic arch demonstrates standard 3-vessel anatomy. Right carotid arterial system: The right common carotid artery is widely patent noting atheroscleroti c plaque and irregularity. There is atherosclerotic plaque in the carotid bulb. There is less than 50 % focal stenosis of the mid right internal carotid artery. The internal and external carotid arteries are otherwise patent. Left carotid arterial system: The left common carotid artery is widely patent noting atherosclerotic plaque and irregularity. There is atherosclerotic plaque in the carotid bulb. This causes less than 5 0% stenosis of the mid internal carotid artery. The remainder of the vessel is patent, as is the exte rnal carotid artery. Vertebral arteries: There is moderate to high-grade stenosis at the origin of both vertebral arteries . The vertebral arteries are otherwise patent in the neck and codominant. Subclavian arteries: Widely patent bilaterally. Intracranial vasculature: The visualized intracranial vessels at the skull base are patent. Jugular veins: Patent bilaterally. Brain parenchyma: The visualized brain parenchyma the skull base is within normal limits. Lung apices: Partially visualized upper lobe lung parenchyma appears clear. Soft tissues: The visualized pharyngeal soft tissues are normal in appearance noting angiographic pha se technique. The oropharyngeal airway appears widely patent. The salivary and thyroid glands are nor mal in appearance. No cervical lymphadenopathy is seen. Skeletal structures: The skeletal structures are osteopenic. The visualized calvarium at the skull ba se appears intact. The imaged cervical spine is maintained noting multilevel spondylosis. Sinuses and mastoids: Visualized paranasal sinuses are clear. The mastoid air cells are well pneumati zed. IMPRESSION: 1. No significant change from 03/15/2025. 2. There is less than 50% focal stenosis identified in the midportion of both the right and left inte rnal carotid arteries. 3. There is moderate to high-grade stenosis at the origin of both vertebral arteries. 4. Additional findings as above. ACT 112: Negative or not required by law. Electronically signed by: Barry White M.D. 03/16/2025 8:44 AM
[2025-03-16] MEDS ORDERED: ASPIRIN 81 MG ECTAB PO SCH (09:00)
[2025-03-16] MEDS ORDERED: CLOPIDOGREL BISULFATE 75 MG TAB PO SCH (09:00)
--- NOTE | 2025-03-16 09:41 | XCELERA ---
[id number]
[2025-03-16] MEDS: CLOPIDOGREL BISULFATE 300 MG TAB PO STA (09:58)
[2025-03-16] MEDS: ASPIRIN 325 MG ECTAB PO ONE (09:58)
--- NOTE | 2025-03-16 11:47 | Electrocardiogram Report ---
Test Reason : Blood Pressure : */* mmHG Vent. Rate : 72 BPM Atrial Rate : 72 BPM P-R Int : 216 ms QRS Dur : 90 ms QT Int : 388 ms P-R-T Axes : 52 9 14 degrees QTcB Int : 424 ms Sinus rhythm with 1st degree A-V block Otherwise normal ECG When compared with ECG of 04-Oct-2022 17:34, No significant change was found Confirmed by Ck Spring ([id number]) on 03/16/2025 11:45:31 AM Referred By: REFERRED SELF Confirmed By: Ck Spring
[2025-03-16] MEDS: ROSUVASTATIN CALCIUM 10 MG TAB PO SCH (13:18)
[2025-03-16] MEDS ORDERED: LABETALOL HCL IV 5 MG/ML 20ML IV PRN (16:07)
--- NOTE | 2025-03-16 16:08 | Hospitalist Progress Note ---
Date of Service March 16, 2025 Assessment & Plan (1) Stroke-like symptoms: (2) RUE weakness: (3) Stented coronary artery: (4) Dizziness: (5) Coronary artery disease: Plan The patient is an 79-year-old male with a past medical history including stented coronary artery, history of [place], CAD, grade 2 diastolic dysfunction, hypertension, hyperlipidemia, GERD and hypertension. He has had chronic dizziness over the past 10 years or so, and reports having had workup performed at multiple tertiary care facilities including [facility], and [facility]. He reports no change in dizziness symptoms at this time. He denies any difficulty with speech or swallowing. He reports that his symptoms of right extremity weakness have resolved completely at this time. 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 He agrees to be admitted at this time for further evaluation. He cannot undergo a closed MRI, and reports he can only do an open MRI. Strokelike symptoms/resolved right upper extremity weakness- Patient has been having waxing and waning weakness in the right upper extremity Had CT head, CTA head and neck twice since admission. All negative. Not a candidate for TNKase Teleneurology consulted, recommended loading dose of aspirin and Plavix today. Switch to 81 mg of aspirin and 75 mg Plavix tomorrow. Continue for 21 days. Then drop Plavix. Awaiting official local neurology input PT/OT recommended rehab Case management working on it Continue Crestor CAD/hypertension/history of [place]- Continue aspirin and Plavix Holding losartan Add labetalol for systolic greater than 200 and diastolic greater than 100 Hyperlipidemia- Continue rosuvastatin GERD- Continue pantoprazole Admission and Anticipated Discharge Date Admission Date: March 15, 2025 Subjective There was a stroke alert this morning. Patient had right upper extremity weakness. Was unable to do finger-nose test. Teleneurology was consulted. Patient had repeat imaging done. Review of Systems Review of Systems: All systems reviewed & are unremarkable except as noted in Subjective Physical Exam Physical Exam: General: Awake, conversant Heart: S1, S2/regular rate and rhythm, no murmur rubs or gallops Lungs: Clear to auscultation bilaterally. Normal effort Abdomen: Soft/nontender/nondistended. No hepatosplenomegaly Extremities: No clubbing/cyanosis. No edema Behavior: Appropriate, cooperative Results & Data Results & Data Vital Signs (Past 12 Hours) Vital Signs Temp Pulse Resp BP Pulse Ox O2 Del Method 03/16/25 11:25 36.5 C 81 24 154/92 H 96 Room Air 03/16/25 09:44 165/89 H 03/16/25 09:39 145/95 H 03/16/25 09:30 173/79 H 03/16/25 08:23 36.7 C 73 20 157/97 H 98 Room Air 03/16/25 07:56 36.5 C 79 18 191/98 H 100 Room Air 03/16/25 06:04 78 198/106 H 100 Room Air Laboratory Results Abnormal lab results 03/15/25 03/15/25 03/16/25 Range/Units 15:47 16:44 06:38 RBC 4.67 L (4.70-6.10) M/uL Neut # (Auto) 6.52 H (1.40-6.50) K/uL [place] # (Auto) 1.01 H 1.04 H (0.11-0.59) K/uL Potassium 3.4 L (3.5-5.1) mmol/L Glucose 107 H (70-99(Fasting)) mg/dl Hemoglobin A1c 6.2 H (4.5-5.6) % Urine pH 8.5 H (4.5-7.5) Urine Blood Trace H (Negative) PG Care Time/CCT Total # of Minutes Spent Total Time Spent with Patient: Total time spent is greater than 50% in coordination of care (as documented) at patient's floor/unit and/or counseling patient: Coding Level of Care Code 12346 SUB INP/OBS CARE 2/35MIN Diagnoses Stroke-like symptoms R29.90 RUE weakness R29.898 Stented coronary artery Z95.5 Dizziness R42 Coronary artery disease involving [place] coronary artery of [place] heart without angina pectoris I25.10 Coronary Disease-Associated Artery/Lesion type: [place] artery [place] vs. transplanted heart: [place] heart Associated angina: without angina (5) Coronary artery disease Coronary Disease-Associated Artery/Lesion type: [place] artery [place] vs. transplanted heart: [place] heart Associated angina: without angina Qualified Code(s): I25.10 - Atherosclerotic heart disease of [place] coronary artery without angina pectoris
--- NOTE | 2025-03-16 17:20 | Neurology Consultation ---
Date of Consultation March 16, 2025 Assessment & Plan (1) Stroke: Plan 79-year-old male with a probable acute left hemispheric stroke, presenting with what was initially mild right sided weakness, much more severe at this time, flaccid weakness for the right upper extremity, mild weakness for the right lower extremity, no associated aphasia or dysarthria. No hemodynamically significant stenosis of either internal carotid artery on CT angiography. No proximal large vessel occlusion. He presented outside of the window for acute thrombolytic therapy. Agree with dual antiplatelet therapy for 3 weeks, afterwards, discontinue aspirin in favor of clopidogrel 75 mg/day. Consider increasing his dosage of Crestor, goal LDL 70 or less. Blood pressure control per stroke protocol. Consider 30-day mobile cardiac outpatient telemetry. Consultations with PT/OT, he will likely need inpatient rehabilitation. He should not require additional outpatient neurological assessment. Please call with any questions. History of Present Illness Reason for Consultation: Stroke Requesting Physician: Sraah Attending Physician: Carlos Portillo MD History of Present Illness The patient is an 79-year-old male with a chief complaint of right upper ext remity weakness that began the day prior to admission. At the time of his initial emergency department assessment, he exhibited mild frame repairer strength weakness for the right hand. He was not considered an appropriate candidate for thrombolytic therapy as onset of symptoms was greater than 4-1/2 hours prior to his presentation. Further, there was no evidence of large vessel occlusion on CT angiography, he was thus not an appropriate candidate for thrombectomy. He was admitted for further medical management. Today, he has more significant right upper extremity weakness, unable to raise the right arm out of the bed, he reports mild right leg weakness as well, no change in speech, no difficulty swallowing, no change in vision. He reports a history of chronic difficulty with balance which goes back many years for which she is seeing multiple specialists previously. He does have aged man cerebrovascular disease. Past medical history also notable for hypertension, hyperlipidemia, and coronary artery disease. He had been taking aspirin and Crestor as an outpatient. He reports that he will not tolerate brain MRI due to severe claustrophobia. He had a repeat CTA of the head and neck completed today in the context of worsening right upper extremity weakness. No significant change compared with yesterday's studies. Less than 50% focal stenosis in the midportion of both internal carotid arteries and moderate to high-grade stenosis at the origins of both vertebral arteries. Stable moderate focal narrowing distally at the right internal carotid artery. There is chronic cerebrovascular disease, periventricular subcortical lucency. Unable to exclude an evolving left hemispheric infarct. I independently reviewed these images. No hemorrhage. There is mild generalized atrophy. No hydrocephalus. An echocardiogram was negative for cardio embolic source. An electrocardiogram revealed a sinus rhythm with first-degree AV block. Allergies Allergy/AdvReac Type Severity Reaction Status Date / Time No Known Allergies Allergy Verified 03/15/25 16:24 Home Medications Medication Instructions Recorded Confirmed Type nitroglycerin 0.4 mg sublingual 0.4 mg sublingual PRN PRN chest 11/16/23 03/15/25 Rx tablet (Nitrostat) pain #30 tabs pantoprazole 40 mg tablet,delayed 40 mg PO DAILY PRN gastric reflux 04/04/24 03/15/25 Rx release #90 tabs rosuvastatin 5 mg tablet 5 mg PO DAILY #90 tabs 12/04/24 03/15/25 Rx losartan 25 mg tablet 25 mg PO DAILY #90 tabs 12/08/24 03/15/25 Rx aspirin 81 mg tablet,delayed 81 mg PO QAM #90 tabs 12/25/24 03/15/25 Rx release rosuvastatin 10 mg tablet 10 mg PO DAILY #90 tabs 12/26/24 03/15/25 Rx clopidogrel 75 mg tablet (Plavix) 75 mg PO DAILY #30 tabs 03/15/25 Rx sildenafil 100 mg tablet 100 mg PO DAILY PRN Erectile 03/15/25 03/15/25 History Dysfunction Patient History Medical History Acute gangrenous cholecystitis Biliary colic First degree AV block Lumbar spinal stenosis Kidney stones Surgical History Hx laparoscopic cholecystectomy (10/22/21) Laparoscopic Cholecystectomy - Alistair Cody DO, FACS 10/22/2021 Hx of cholecystectomy History of tonsillectomy and adenoidectomy History of back surgery x 2 History of carpal tunnel release Family History Father Myocardial infarction, Onset Age: 65 Hx of CABG Brother Myocardial infarction Mother Myocardial infarction, Onset Age: 72 Denies family history of Ovarian cancer Prostate cancer Breast cancer Colorectal cancer Social History Smoking Status: Never smoker Second Hand Exposure: No; Do You Dip or Chew Tobacco: No; Hx Alcohol Use: No Hx Substance Use: No Preferred Language: Frisian Communication Ability: Effective Visual Impairment: No Limitations 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 Required: No Beliefs That Will Affect Care: None marital status: Current Living Situation: Spouse Feels Safe at Home: Yes Childhood Exposure to Second-Hand Smoke: Yes Diet: regular Dental Care, Regularly: Yes Physical Activity Frequency: Daily Seatbelt Use: sometimes Sunscreen Use: No Assistive Devices: None Review of Systems Constitutional: no fever and no chills Eyes: no blind spots and no diplopia Ear, Nose, Mouth, Throat: no hearing loss Respiratory: no cough and no dyspnea Cardiovascular: no chest pain and no palpitations Gastrointestinal: no nausea and no vomiting Genitourinary: no dysuria Musculoskeletal: no myalgia Integumentary: no rash and no lesions Neurologic: as per Subjective / HPI and + localized weakness; no headache(s) Psychiatric: no depression and no anxiety Hematologic / Lymphatic: no easy bleeding and no easy bruising Exam (Neuro) Constitutional: well developed; no acute distress Eyes: normal visual her by confrontation, PERRL and EOM intact bilaterally; no nystagmus Neurologic: Oriented to:: Person, Place and Time Memory: Short Term Intact and Remote Intact Attention: Span Intact and Concentration Intact Speech Fluency: negative Dysarthria or Dysfluency Speech Aphasia: negative Aphasia Fund of Knowledge: Current Events, Past History and Vocabulary Cranial Nerves: Normal II, III, IV, , V, VII, VIII, IX, X, XI and XII Motor Strength: Hemiparesis (Arm much greater than leg. Right upper extremity 0/5. Right lower extremity 4/5) Laterality: Right Flaccidity: Arms Laterality: Right Muscle Bulk/Involuntary Movements: No Involuntary Movements; negative Muscle Atrophy Sensation: Light Touch Intact, Pain/Temperature Intact and Proprioception Intact Coordination: Finger-Nose Abnormal Laterality: Right and Heel-Cartwright Abnormal Laterality: Right Deep Tendon Reflexes: Rt Triceps: 2+, Lt Triceps: 2+, Rt Biceps: 3+, Lt Biceps: 2+, Rt Brachioradialis: 2+, Lt Brachioradialis: 2+, Rt Patellar: 3+, Lt Patellar: 2+, Rt Ankle: 2+ and Lt Ankle: 1+ Special Tests: Babinski Present (right) Results & Data Vital Signs (Past 12 Hours) Vital Signs Temp Pulse Resp BP Pulse Ox O2 Del Method 03/16/25 16:36 36.4 C L 77 20 160/96 H 99 Room Air 03/16/25 11:25 36.5 C 81 24 154/92 H 96 Room Air 03/16/25 09:44 165/89 H 03/16/25 09:39 145/95 H 03/16/25 09:30 173/79 H 03/16/25 08:23 36.7 C 73 20 157/97 H 98 Room Air 03/16/25 07:56 36.5 C 79 18 191/98 H 100 Room Air 03/16/25 06:04 78 198/106 H 100 Room Air Laboratory Results Hemoglobin A1c 6.2. Triglycerides 126, cholesterol 177, LDL 112, HDL 40 Coding Level of Care Code 41183 INT INP/OBS CARE 2/55MIN Diagnoses Stroke I63.9 Time Spent (min) 60 Comment Total time includes patient contact, chart review, counseling, note preparation
[2025-03-16] MEDS: MELATONIN 3 MG TAB PO PRN (21:06)
[2025-03-16] MEDS: ZOLPIDEM TARTRATE 5 MG TAB PO PRN (21:29)
[2025-03-17 06:08] LABS: Hematocrit (blood only) 42.5 % (42.0-52.0); Hemoglobin 14.7 g/dl (14.0-18.0); Immature Granulocytes # (auto) 0.03 K/uL (0.01-0.20); Immature Granulocytes % (auto) 0.3 %; Mean Corpuscular Hemoglobin 32.2 pg (25.0-34.0); Mean Corpuscular Volume 93.0 fL (80.0-100.0); Platelet Count 220 K/uL (130-400); RDW Standard Deviation 41.1 fL (36.4-46.3); Red Blood Count 4.57 M/uL (4.70-6.10); White Blood Count 9.58 K/ul (4.8-10.8)
[2025-03-17 06:26] LABS: Alanine Aminotransferase 13.0 U/L (7-52); Albumin Globulin Ratio 1.5 (0.9-2); Alkaline Phosphatase 54.0 U/L (34-104); Anion Gap 8.0 (3-11); Bilirubin,Total 0.9 mg/dl (0.2-1.0); Blood Urea Nitrogen 17.0 mg/dl (6-23); Calcium 9.1 mg/dl (8.6-10.3); Carbon Dioxide 24.0 mmol/L (21-32); Chloride 105.0 mmol/L (98-107); Creatinine Clr Calc Pharmacy 47.9 ml/min; Globulin 2.8 gm/dl (2.5-4.0); Glucose 113.0 mg/dl (70-99(Fasting)); Magnesium 2.0 mg/dl (1.7-2.4); Potassium 4.0 mmol/L (3.5-5.1); Sodium 137.0 mmol/L (136-145); Total Protein 7.0 gm/dl (6.0-8.3)
[2025-03-17] MEDS: ASPIRIN 81 MG ECTAB PO SCH (08:34)
[2025-03-17] MEDS: CLOPIDOGREL BISULFATE 75 MG TAB PO SCH (08:34)
[2025-03-17] MEDS: ROSUVASTATIN CALCIUM 20 MG TAB PO SCH (08:39)
--- NOTE | 2025-03-17 11:01 | Pharmacy Report ---
- Date of Service March 17, 2025 - Pharmacy CVA/TIA Medication Review Medications to Prevent Stroke handout has been added to the patients discharge packet. Antiplatelet(s) * Aspirin 81 mg PO daily + Plavix 75 mg PO daily for 21 days followed by Plavix lifelong Cholesterol * High intensity statin: rosuvastatin 20 mg daily DVT Prophylaxis * SCD knee Therapeutic Anticoagulation * No history of Afib/Aflutter noted Type 2 Diabetes * Patient does not have T2DM
--- NOTE | 2025-03-17 12:43 | Hospitalist Progress Note ---
Date of Service March 17, 2025 Assessment & Plan (1) Stroke-like symptoms: (2) RUE weakness: (3) Stented coronary artery: (4) Dizziness: (5) Coronary artery disease: Plan The patient is an 79-year-old male with a past medical history including stented coronary artery, history of [place], CAD, grade 2 diastolic dysfunction, hypertension, hyperlipidemia, GERD and hypertension. He has had chronic dizziness over the past 10 years or so, and reports having had workup performed at multiple tertiary care facilities including [facility], and [facility]. He reports no change in dizziness symptoms at this time. He denies any difficulty with speech or swallowing. He reports that his symptoms of right extremity weakness have resolved completely at this time. 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 He agrees to be admitted at this time for further evaluation. He cannot undergo a closed MRI, and reports he can only do an open MRI. Acute left MCA distribution ischemic CVA. Patient was having waxing and waning weakness of the right upper extremity but now has constant weakness and flaccidity of his right upper extremity Had CT head, CTA head and neck twice since admission. All negative. Not a candidate for TNKase Teleneurology consulted, recommended loading dose of aspirin and Plavix today. Switch to 81 mg of aspirin and 75 mg Plavix 03/17. Continue for 21 days. Then drop Plavix. Neurology input appreciated Increase Crestor to 20 mg Consider 30-day event monitor PT/OT recommended rehab. Patient is willing. Case management working on it CAD/hypertension/history of [place]- Continue aspirin and Plavix Holding losartan Add labetalol for systolic greater than 200 and diastolic greater than 100 Hyperlipidemia- Continue rosuvastatin GERD- Continue pantoprazole Admission and Anticipated Discharge Date Admission Date: March 15, 2025 Subjective Patient has right upper extremity and right lower extremity weakness. He is unable to move his right arm. He is now willing to go to rehab. Review of Systems Review of Systems: All systems reviewed & are unremarkable except as noted in Subjective Physical Exam Physical Exam: General: Awake, conversant Heart: S1, S2/regular rate and rhythm, no murmur rubs or gallops Lungs: Clear to auscultation bilaterally. Normal effort Abdomen: Soft/nontender/nondistended. No hepatosplenomegaly Extremities: No clubbing/cyanosis. No edema Behavior: Appropriate, cooperative Neuro exam: Right upper extremity strength 0 out of 5, right lower extremity 4 out of 5 Results & Data Results & Data Vital Signs (Past 12 Hours) Vital Signs Temp Pulse Pulse Resp BP Pulse Ox O2 Del Method 03/17/25 11:03 36.6 C 69 19 137/83 97 Room Air 03/17/25 08:00 68 03/17/25 07:06 36.6 C 66 19 145/72 H 99 Room Air 03/17/25 02:42 36.7 C 72 16 94/64 L 97 Room Air Laboratory Results Abnormal lab results 03/17/25 Range/Units 05:39 RBC 4.57 L (4.70-6.10) M/uL [place] # (Auto) 1.27 H (0.11-0.59) K/uL Glucose 113 H (70-99(Fasting)) mg/dl PG Care Time/CCT Total # of Minutes Spent Total Time Spent with Patient: Total time spent is greater than 50% in coordination of care (as documented) at patient's floor/unit and/or counseling patient: Coding Level of Care Code 74506 SUB INP/OBS CARE 2/35MIN Diagnoses Stroke-like symptoms R29.90 RUE weakness R29.898 Stented coronary artery Z95.5 Dizziness R42 Coronary artery disease involving [place] coronary artery of [place] heart without angina pectoris I25.10 Coronary Disease-Associated Artery/Lesion type: [place] artery [place] vs. transplanted heart: [place] heart Associated angina: without angina (5) Coronary artery disease Coronary Disease-Associated Artery/Lesion type: [place] artery [place] vs. transplanted heart: [place] heart Associated angina: without angina Qualified Code(s): I25.10 - Atherosclerotic heart disease of [place] coronary artery without angina pectoris
[2025-03-18 06:13] LABS: Hematocrit (blood only) 41.0 % (42.0-52.0); Hemoglobin 14.7 g/dl (14.0-18.0); Immature Granulocytes # (auto) 0.02 K/uL (0.01-0.20); Immature Granulocytes % (auto) 0.2 %; Mean Corpuscular Hemoglobin 33.3 pg (25.0-34.0); Mean Corpuscular Volume 92.8 fL (80.0-100.0); Platelet Count 232 K/uL (130-400); RDW Standard Deviation 41.2 fL (36.4-46.3); Red Blood Count 4.42 M/uL (4.70-6.10); White Blood Count 8.39 K/ul (4.8-10.8)
[2025-03-18 06:35] LABS: Anion Gap 8.0 (3-11); Bilirubin,Total 0.8 mg/dl (0.2-1.0); Calcium 9.6 mg/dl (8.6-10.3); Carbon Dioxide 26.0 mmol/L (21-32); Chloride 104.0 mmol/L (98-107); Magnesium 2.0 mg/dl (1.7-2.4); Potassium 3.9 mmol/L (3.5-5.1); Sodium 138.0 mmol/L (136-145)
[2025-03-18 06:41] LABS: Alanine Aminotransferase 11.0 U/L (7-52); Albumin Globulin Ratio 1.6 (0.9-2); Alkaline Phosphatase 53.0 U/L (34-104); Blood Urea Nitrogen 21.0 mg/dl (6-23); Creatinine Clr Calc Pharmacy 49.2 ml/min; Globulin 2.7 gm/dl (2.5-4.0); Glucose 111.0 mg/dl (70-99(Fasting)); Total Protein 6.9 gm/dl (6.0-8.3)
--- NOTE | 2025-03-18 10:45 | Hospitalist Progress Note ---
Date of Service March 18, 2025 Assessment & Plan (1) Stroke-like symptoms: (2) RUE weakness: (3) Stented coronary artery: (4) Dizziness: (5) Coronary artery disease: Plan The patient is an 79-year-old male with a past medical history including stented coronary artery, history of [place], CAD, grade 2 diastolic dysfunction, hypertension, hyperlipidemia, GERD and hypertension. He has had chronic dizziness over the past 10 years or so, and reports having had workup performed at multiple tertiary care facilities including [facility], and [facility]. He reports no change in dizziness symptoms at this time. He denies any difficulty with speech or swallowing. He reports that his symptoms of right extremity weakness have resolved completely at this time. 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 Acute left MCA distribution ischemic CVA. Patient was initially having waxing and waning weakness of the right upper extremity but now has constant weakness and flaccidity of his right upper extremity Had CT head, CTA head and neck twice since admission. All negative. Not a candidate for TNKase Teleneurology consulted, recommended loading dose of aspirin and Plavix today. Switch to 81 mg of aspirin and 75 mg Plavix 03/17. Continue for 21 days. Then drop Plavix. Neurology input appreciated Patient cannot tolerate MRI Increase Crestor to 20 mg Consider 30-day event monitor PT/OT recommended rehab. Patient is willing. Case management working on it CAD/hypertension/history of [place]- Continue aspirin and Plavix Holding losartan Add labetalol for systolic greater than 200 and diastolic greater than 100 Hyperlipidemia- Continue rosuvastatin GERD- Continue pantoprazole Admission and Anticipated Discharge Date Admission Date: March 17, 2025 Subjective Patient feels well today. He is anxious to go to rehab. Review of Systems Review of Systems: All systems reviewed & are unremarkable except as noted in Subjective Physical Exam Physical Exam: General: Awake, conversant Heart: S1, S2/regular rate and rhythm, no murmur rubs or gallops Lungs: Clear to auscultation bilaterally. Normal effort Abdomen: Soft/nontender/nondistended. No hepatosplenomegaly Extremities: No clubbing/cyanosis. No edema Behavior: Appropriate, cooperative Neuro exam: Right upper extremity strength 0 out of 5, right lower extremity 4 out of 5 Results & Data Results & Data Vital Signs (Past 12 Hours) Vital Signs Temp Pulse Pulse Resp BP Pulse Ox O2 Del Method 03/18/25 08:00 76 03/18/25 07:41 36.4 C L 72 18 128/79 95 Room Air 03/18/25 03:37 36.4 C L 71 16 138/86 96 Room Air 03/17/25 23:14 36.3 C L 73 14 112/74 96 Room Air 03/17/25 22:52 78 Laboratory Results Abnormal lab results 03/18/25 Range/Units 05:42 RBC 4.42 L (4.70-6.10) M/uL Hct 41.0 L (42.0-52.0) % [place] # (Auto) 1.14 H (0.11-0.59) K/uL Glucose 111 H (70-99(Fasting)) mg/dl PG Care Time/CCT Total # of Minutes Spent Total Time Spent with Patient: Total time spent is greater than 50% in coordination of care (as documented) at patient's floor/unit and/or counseling patient: Coding Level of Care Code 92589 SUB INP/OBS CARE 2/35MIN Diagnoses Stroke-like symptoms R29.90 RUE weakness R29.898 Stented coronary artery Z95.5 Dizziness R42 Coronary artery disease involving barrow coronary artery of barrow heart without angina pectoris I25.10 Coronary Disease-Associated Artery/Lesion type: barrow artery [place] vs. transplanted heart: barrow heart Associated angina: without angina (5) Coronary artery disease Coronary Disease-Associated Artery/Lesion type: barrow artery [place] vs. transplanted heart: barrow heart Associated angina: without angina Qualified Code(s): I25.10 - Atherosclerotic heart disease of barrow coronary artery without angina pectoris
[2025-03-19 03:50] VITALS: RESP 18
[2025-03-19 07:53] VITALS: O2SAT 96
[2025-03-19] MEDS ORDERED: STROKE PATIENT DISCHARGE STA (11:45)
[2025-03-19 11:46] VITALS: BP 150/88; TEMP 97.3
--- NOTE | 2025-03-19 11:46 | Discharge Summary ---
Date of Service March 19, 2025 Admission HPI Per Admitting Provider The patient is an 79-year-old male with a past medical history including stented coronary artery, history of [place], CAD, grade 2 diastolic dysfunction, hypertension, hyperlipidemia, GERD and hypertension. He has had chronic dizziness over the past 10 years or so, and reports having had workup performed at multiple tertiary care facilities including [facility] and [facility]. He reports no change in dizziness symptoms at this time. He denies any difficulty with speech or swallowing. He reports that his symptoms of right extremity weakness have resolved completely at this time. 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 He agrees to be admitted at this time for further evaluation. He cannot undergo a closed MRI, and reports he can only do an open MRI. 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 Normal effort Abdomen: Soft/nontender/nondistended. No hepatosplenomegaly Extremities: No clubbing/cyanosis. No edema Behavior: Appropriate, cooperative Neuro exam: Right upper extremity strength 0 out of 5, right lower extremity 4 out of 5 Discharge Data Allergies Allergy/AdvReac Type Severity Reaction Status Date / Time No Known Allergies Allergy Verified 03/15/25 16:24 Consultations 03/15/25 16:52 ED Decision to Admit Stat 03/15/25 22:49 Consult Neurology Routine Ordered Studies Chest X-Ray 03/15/25 15:00 XR chest 1V portable CLINICAL HISTORY: neuro deficit, acute stroke suspected COMPARISON STUDY: 10/04/2022 FINDINGS: Heart size and pulmonary vasculature are normal. No consolidation or pleural effusion. No pneumothorax. IMPRESSION: No acute findings. ACT 112: Negative or not required by law. Electronically signed by: Alistair Flores M.D. 03/15/2025 3:[address] 03/15/25 15:00 CT head/brain wo con CLINICAL HISTORY: neuro deficit, acute stroke suspected. TECHNIQUE: Multiple axial CT images of the head were obtained without contrast. A dose lowering technique was utilized adhering to the principles of ALARA. CT DOSE: 1162.88mGy*cm COMPARISON: None FINDINGS: There is no intra-axial or extra-axial fluid collection, hemorrhage, or mass. There is global atrophy and presumptive small vessel insufficiency. There is no midline shift. No focal attenuation abnormality of significance. The calvarium is intact. IMPRESSION: Senescent changes as described. No acute intracranial process. ACT 112: Negative or not required by law. The above report was generated using voice recognition software. It may contain grammatical, syntax or spelling errors. Electronically signed by: Virginia Jauregui M.D. 03/15/2025 3:38 PM Head CTA 03/15/25 15:00 CT angio head w con CLINICAL HISTORY: neuro deficit, acute stroke suspected. TECHNIQUE: Unenhanced axial CT scan of the brain is performed. Subsequently, following the IV administration of 120 cc of Optiray, CT angiogram of the brain was performed from the skull base to the vertex. Images are reviewed in the axial, sagittal, and coronal planes. 3-D MIPS images are created and assessed. IV contrast was administered without complication. All measurements were obtained according to NASCET criteria. A dose lowering technique was utilized adhering to the principles of ALARA. CT DOSE: 1162.88 mGy.cm COMPARISON STUDY: None FINDINGS: There is atherosclerotic calcification distally at the right internal carotid artery which causes short segment moderate narrowing. Otherwise the distal internal carotid and vertebral arteries show no significant narrowing. Basilar artery is patent. Anterior, middle, and posterior cerebral arteries are patent. Cerebral venous sinuses opacify normally. IMPRESSION: 1. No significant arterial narrowing or occlusion seen at the brain. 2. Moderate focal narrowing distal most right internal carotid artery. ACT 112: Negative or not required by law. The above report was generated using voice recognition software. It may contain grammatical, syntax or spelling errors. Electronically signed by: Alistair Flores M.D. 03/15/2025 3:40 PM Neck CTA 03/15/25 15:00 CT ANGIOGRAM OF THE NECK CLINICAL HISTORY: Neurological deficit. Stroke like symptoms. COMPARISON STUDY: No priors TECHNIQUE: Following the IV administration of 118 of Optiray 320, CT angiogram of the neck was performed from the aortic arch to the skull base. Images are reviewed in the axial, sagittal, and coronal planes. 3-D MIPS images are created and assessed. IV contrast was administered without complication. All nikolai surements were calculated based on NASCET criteria. A dose lowering technique was utilized adhering to the principles of ALARA. FINDINGS: Thoracic aorta: There is atherosclerotic calcification of the thoracic aorta. Visualized portions of the thoracic aorta are normal in caliber. The aortic arch demonstrates standard 3-vessel anatomy. Right carotid arterial system: The right common carotid artery is widely patent noting atherosclerotic plaque and irregularity. There is atherosclerotic plaque in the carotid bulb. There is less than 50% focal stenosis of the mid right internal carotid artery seen on axial image #273. The internal and external carotid arteries are otherwise patent. Left carotid arterial system: The left common carotid artery is widely patent noting atherosclerotic plaque and irregularity. There is atherosclerotic plaque in the carotid bulb. This causes less than 50% stenosis of the mid internal carotid artery as seen on axial image #285. The remainder of the vessels patent, as is the external carotid artery. Vertebral arteries: There is high-grade focal stenosis at the origin of the left vertebral artery seen on axial image #139. Moderate focal stenosis at the origin of the right vertebral artery. The vertebral arteries are otherwise patent in the neck and codominant. Subclavian arteries: Widely patent bilaterally. Intracranial vasculature: The visualized intracranial vessels at the skull base are patent. Jugular veins: Patent bilaterally. Brain parenchyma: The visualized brain parenchyma the skull base is within normal limits. Lung apices: Partially visualized upper lobe lung parenchyma appears clear. Soft tissues: The visualized pharyngeal soft tissues are normal in appearance noting angiographic phase technique. The oropharyngeal airway appears widely patent. The salivary and thyroid glands are normal in appearance. No cervical lymphadenopathy is seen. Skeletal structures: The skeletal structures are osteopenic. The visualized calvarium at the skull base appears intact. The imaged cervical spine is maintained noting multilevel spondylosis. Sinuses and mastoids: Visualized paranasal sinuses are clear. The mastoid air ce lls are well pneumatized. IMPRESSION: 1. There is less than 50% focal stenosis identified in the midportion of both the right and left internal carotid arteries. 2. 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 3. There is moderate focal stenosis at the origin of the right vertebral artery. 4. Additional findings as above. ACT 112: Negative or not required by law. Electronically signed by: Barry White M.D. 03/15/2025 3:55 PM Head CTA 03/16/25 08:03 CT angio head wo/w CLINICAL HISTORY: RUE weakness COMPARISON STUDY: 03/15/2025 FINDINGS: Noncontrast head CT: There is mild residual vascular contrast from the contrast studies yesterday. No intracranial hemorrhage seen. No mass effect, midline shift, or hydrocephalus. There is stable diffuse patchy periventricular hypodensity which is nonspecific, but usually represents chronic small vessel ischemic change. No skull fracture seen. Visualized paranasal sinuses and mastoid air cells are clear. CTA: There is stable moderate focal narrowing distal most right internal carotid artery due to calcified plaque. Otherwise the visualized distal internal carotid and vertebral arteries show no significant narrowing. Basilar artery is patent. Anterior, middle, and posterior cerebral arteries are patent bilaterally. Cerebral venous sinuses opacify normally. IMPRESSION: 1. No acute findings seen. 2. No significant arterial narrowing or occlusion seen at the brain. 3. Stable moderate focal narrowing distally at the right internal carotid artery. ACT 112: Negative or not required by law. Electronically signed by: Alistair Flores M.D. 03/16/2025 8:43 AM Neck CTA 03/16/25 08:05 CT ANGIOGRAM OF THE NECK CLINICAL HISTORY: Right upper extremity weakness. COMPARISON STUDY: CT angiogram of the neck dated 03/15/2025. TECHNIQUE: Following the IV administration of 118 of Optiray 320, CT angiogram of the neck was performed from the aortic arch to the skull base. Images are reviewed in the axial, sagittal, and coronal planes. 3-D MIPS images are created and assessed. IV contrast was administered without complication. All measurements were calculated based on NASCET criteria. A dose lowering technique was utilized adhering to the principles of ALARA. FINDINGS: Thoracic aorta: There is atherosclerotic calcification of the thoracic aorta. Visualized portions of the thoracic aorta are normal in caliber. The aortic arch demonstrates standard 3-vessel anatomy. Right carotid arterial system: The right common carotid artery is widely patent noting atherosclerotic plaque and irregularity. There is atherosclerotic plaque in the carotid bulb. There is less than 50% focal stenosis of the mid right internal carotid artery. The internal and external carotid arteries are otherwise patent. Left carotid arterial system: The left common carotid artery is widely patent noting atherosclerotic plaque and irregularity. There is atherosclerotic plaque in the carotid bulb. This causes less than 50% stenosis of the mid internal carotid artery. The remainder of the vessel is patent, as is the external carotid artery. Vertebral arteries: There is moderate to high-grade stenosis at the origin of both vertebral arteries. The vertebral arteries are otherwise patent in the neck and codominant. Subclavian arteries: Widely patent bilaterally. Intracranial vasculature: The visualized intracranial vessels at the skull base are patent. Jugular veins: Patent bilaterally. Brain parenchyma: The visualized brain parenchyma the skull base is within normal limits. Lung apices: Partially visualized upper lobe lung parenchyma appears clear. Soft tissues: The visualized pharyngeal soft tissues are normal in appearance noting angiographic phase technique. The oropharyngeal airway appears widely patent. The salivary and thyroid glands are normal in appearance. No cervical lymphadenopathy is seen. Skeletal structures: The skeletal structures are osteopenic. The visualized calvarium at the skull base appears intact. The imaged cervical spine is maintained noting multilevel spondylosis. Sinuses and mastoids: Visualized paranasal sinuses are clear. The mastoid air cells are well pneumatized. IMPRESSION: 1. No significant change from 03/15/2025. 2. There is less than 50% focal stenosis identified in the midportion of both the right and left internal carotid arteries. 3. There is moderate to high-grade stenosis at the origin of both vertebral arteries. 4. Additional findings as above. ACT 112: Negative or not required by law. Electronically signed by: Barry White M.D. 03/16/2025 8:44 AM 03/15/25 15:00 CT angio head w con Stat CT angio neck with con Stat CT head/brain wo con Stat 03/16/25 08:03 CTA head wo/w [CT angio head wo/w] Stat 03/16/25 08:05 CTA neck with con [CT angio neck with con] Stat Hospital Course (1) Stroke-like symptoms: (2) RUE weakness: (3) Stented coronary artery: (4) Dizziness: (5) Coronary artery disease: Plan The patient is an 79-year-old male with a past medical history including stented coronary artery, history of [place], CAD, grade 2 diastolic dysfunction, hypertension, hyperlipidemia, GERD and hypertension. He has had chronic dizziness over the past 10 years or so, and reports having had workup performed at multiple tertiary care facilities including [facility], and [facility]. He reports no change in dizziness symptoms at this time. He denies any difficulty with speech or swallowing. He had reported that his symptoms of right extremity weakness had resolved completely at the time of admission. 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 Acute left MCA distribution ischemic CVA. Patient was initially having waxing and waning weakness of the right upper extremity but now has constant weakness and flaccidity of his right upper extremity Had CT head, CTA head and neck twice since admission. All negative. Not a candidate for TNKase Teleneurology consulted, recommended loading dose of aspirin and Plavix then Switch to 81 mg of aspirin and 75 mg Plavix 03/17. Continue for 21 days. Then drop Plavix. Neurology input appreciated Echocardiogram reviewed Patient cannot tolerate MRI Increase Crestor to 20 mg Consider 30-day event monitor PT/OT recommended rehab. Patient is willing. 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 Condition on Discharge: Fair Activity: Resume your previous activity Non-emergency contact: Primary Care Provider Call non-emergency contact if: you have any medication questions and your symptoms worsen Follow-up/Referrals: PCP,NO [Primary Care Provider] - Diet: Heart Healthy Addtl Attending Provider Instructions: Advised to follow-up with PCP in 1 week Advised to note that you have been started on Plavix that you will take for total of 21 days, to discontinue on April 06 Advised to note that the dose of Crestor has been increased Pending Studies at Discharge: No Stand-Alone Forms: My [facility], Medications to Prevent Stroke Skilled Items Patient informed of condition?: Yes DNR: No Discharge Level of Care: Acute rehab Communicable Disease: No Discharge Prognosis: Stable Lines: None Urinary Catheter: No Medications and DC Order Prescriptions: New clopidogrel 75 mg Tablet 75 mg PO QAM 17 Days Qty: 17 0RF rosuvastatin 20 mg Tablet 20 mg PO QAM 30 Days Qty: 30 0RF Continued pantoprazole 40 mg tablet,delayed release (DR/EC) 40 mg PO DAILY PRN (Reason: gastric reflux) Qty: 90 3RF Rx Instructions: for GERD symptoms losartan 25 mg tablet 25 mg PO DAILY Qty: 90 3RF aspirin 81 mg tablet,delayed release (DR/EC) 81 mg PO QAM Qty: 90 0RF nitroglycerin [Nitrostat] 0.4 mg tablet, sublingual 0.4 mg sublingual PRN PRN (Reason: chest pain) Qty: 30 0RF sildenafil 100 mg tablet 100 mg PO DAILY PRN (Reason: Erectile Dysfunction) Discontinued rosuvastatin 5 mg tablet 5 mg PO DAILY Qty: 90 3RF Rx Instructions: LAST FILLED 12/04/24 FOR 90 DAYS/90 TAB. PER PT "TAKING 5 MG", PER EXT MED HX--12/26/24--10 MG ORDERED 90 DAYS/ TAB. rosuvastatin 10 mg tablet 10 mg PO DAILY Qty: 90 3RF Rx Instructions: PER EXT MED HX--12/26/24--10 MG ORDERED 90 DAYS/ TAB. LAST FILLED 12/04/24 FOR 90 DAYS/90 TAB. PER PT "TAKING 5 MG" Discharge Orders: Discharge Order (Routine); Ordered 03/19/25 Ordered By: Carlos Yousif/Other Patient Handouts: Prediabetes, 5 Steps for Eating Healthier Admission Data Admit Date/Time: 03/17/25 14:33 Attending Provider: Carlos Portillo Admit Provider: Franky Smith Primary Care Provider: PCP,NO Other Providers: Carlos Portillo; Andres Van; [facility]; [facility] Other Interventions: Discharge Summary Assessment (RN) Last Done: 03/19/25 15:34
[2025-03-19 15:37] VITALS: PULSE 80
== END 2025-03-19 16:40 | DRG 65 ==
LOC: SUATTDRO → 2S 14:53 → ED 14:53 → 2S 22:13